=== PATIENT | male | born 1955 | race Caucasian/White ===

== ENCOUNTER → 2016-03-30 | Outpatient (CLI) | payer OTHER ==
[~2016-03-30] MED LIST: COLA100C PO; COLA50CA3 PO; CYCL10TA3 PO; GABA-279 PO; HYDR-3716 PO; HYDR10TA20 PO; HYDR7.5T30 PO; LIDO5DIS36 TD; LIDOCAINE TOP; MENSCAP PO; MORP10SU PO; PRIN10TA PO; VALI5TAB PO; [UNRECOGNIZED DRUG - OTHER] PO
--- NOTE | 2016-04-10 01:03 | ECWPNPC ---
PATIENT NAME: ISAIAH LAWTON : 1955 GENDER: MALE VISIT DATE: 03/30/2016 DISCHARGE DATE: 03/30/16 1215 VISIT LOCKED DATE TIME: PHYSICIAN: IMANI MAYO RESOURCE: IMANI MAYO REASON FOR APPOINTMENT 1. WC, BACK DISCUSS PT HISTORY OF PRESENT ILLNESS HISTORY OF PRESENT ILLNESS: PAIN THE PATIENT DESCRIBES THE PAIN... 61 YEAR OLD MALE PATIENT WITH CHRONIC HISTORY OF BACK PAIN. PATIENT DESCRIBES THE PAIN ACHING WITH A PAIN SCORE OF 7/10. PATIENT WAS INJURED IN A WORK RELATED INJURY. PATIENT WAS INJURED WHEN HE WAS PICKING UP A FERTILIZER MACHINE ON THE BACK OF A TRUCK AND HURT HIS BACK. DATE OF INJURY WAS AUGUST OF 1993. PATIENT STATES THAT HE RECEIVED AN INJECTION ON 11-29-2015, AND POST PROCEDURE HE HAD DIFFICULTY WITH PAIN DOWN HIS LEGS, PATIENT WAS TAKEN TO THE ER THAT DAY AND ADMITTED FOR 5 DAYS. PATIENT STATES THAT NARCO HELPS WITH THE PAIN AND INCREASES HIS MOBILITY AND FUNCTIONALITY. PATIENT REPORTS THAT SITTING, BENDING HIS BACK, AND WALKING FOR LONG PERIODS INCREASE HIS PAIN LEVELS. PATIENT DENIES UNEXPLAINABLE WEIGHT LOSS, FEVER, CHILLS, NEW CHANGES ON HIS URINARY OR BOWEL CONTROL. FALL RISK SCREENING: SCREENING :NO FALLS IN THE PAST YEAR CURRENT MEDICATIONS TAKING COLACE 100 MG CAPSULE 1 CAPSULE ORALLY BID TAKING NORCO 7.5-325 MG TABLET 1 TABLET ORALLY EVERY 6 HRS PRN PAIN MDD=4 NOT-TAKING AMOXICILLIN-POT CLAVULANATE 875 MG TABLET 1 TABLET ORALLY EVERY 12 HRS NOT-TAKING VALIUM 5 MG TABLET 1 ORALLY 1 TAB 1HR PRE PROC. MDD1, NOTES: 1338 TODAY TOOK OWN MEDICATION LIST REVIEWED AND RECONCILED WITH THE PATIENT PAST MEDICAL HISTORY LOW BACK PAIN KIDNEY STONES BLADDER CANCER LEFT LEG WEAKNESS AFTER PROCEDURE ALLERGIES MORPHINE SULFATE: HEADACHE: SIDE EFFECTS SURGICAL HISTORY LUMBAR SURGURY 2001 BLADDER SURGERY OR 09/2015 RIGHT SURGERY AFTER CHAINSAW INJURY 1965 OR 1966 FAMILY HISTORY NO FAMILY HISTORY DOCUMENTED. SOCIAL HISTORY GENERAL: TOBACCO USE ARE YOU A:NONSMOKER LEARNING BARRIERS / SPECIAL NEEDS ORIENTED TO PLAN OF CARE: PATIENT, PAIN MANAGEMENT PATIENT, ORIENTED TO PLAN OF CARE: PATIENT, PAIN MANAGEMENT PATIENT. NEW PATIENT PAIN DIARY TODAY'S VISITNOTES FROM 0-10, WHAT LEVEL IS YOUR PAIN TODAY?0 PAIN CLINIC PFS, CLERGY, PUBLIC HEALTH REFERRALS PFS REFERRAL NEEDED?NO CLERGY REFERRAL NEEDED?NO PUBLIC HEALTH REFERRAL NEEDED?NO WAS THE PROVIDER NOTIFIED OF ANY PERTINENT INFO?NO PFS REFERRAL NEEDED?NO CLERGY REFERRAL NEEDED?NO PUBLIC HEALTH REFERRAL NEEDED?NO WAS THE PROVIDER NOTIFIED OF ANY PERTINENT INFO?NO HOSPITALIZATION/MAJOR DIAGNOSTIC PROCEDURE SURGERIES LEFT LEG WEAKNESS AFTER PROCEDURE REVIEW OF SYSTEMS CONSTITUTIONAL: ANY CHANGE IN YOUR MEDICAL CONDITION? NO . CHILLS NO . FEVER NO . INFECTION: DO YOU HAVE NEW INFECTIONS? NO . DO YOU HAVE HISTORY OF MRSA? NO . MUSCULOSKELETAL: ANY NEW PATTERNS OF PAIN OR NUMBNESS? NO . GASTROENTEROLOGY: ANY NEW CHANGE IN BOWEL CONTROL? NO . GENITOURINARY: ANY NEW CHANGE IN BLADDER CONTROL? NO . IS THERE A CHANCE YOU COULD BE ? NO . HEMATOLOGY/LYMPH: DO YOU TAKE ANY BLOOD THINNERS? (FOR EXAMPLE- COUMADIN, PLAVIX, AGGRENOX, PLATEL, PRADAXA, OR XARELTO) NO . WHEN WAS YOUR LAST DOSE? DATE: TIME: . NEUROLOGY: HAVE YOU FALLEN IN THE PAST 6 MONTHS? NO . ANY NEW EXTREMITY NUMBNESS OR WEAKNESS? NO . CARDIOLOGY: DO YOU HAVE A PACEMAKER OR DEFIBRILLATOR? NO . RESPIRATORY: HAVE YOU BEEN SICK IN THE PAST WEEK? NO . FEVER NO . FLU LIKE SYMPTOMS? NO . COUGH NO . INTEGUMENTARY: DO YOU HAVE ANY RASHES OR OPEN SORES? NO . ALLERGIC/IMMUNO: ARE YOU ALLERGIC TO SHELLFISH OR IV DYE? NO . ANY NEW ALLERGIES? NO . PSYCHIATRIC: DO YOU HAVE THOUGHTS OF HURTING YOURSELF OR SOMEONE ELSE? NO . ARE YOU ABUSED, NEGLECTED, OR IN AN UNSAFE ENVIRONMENT? NO . ENDOCRINOLOGY: ARE YOU DIABETIC? NO . OTHER: DO YOU NEED ANY PRESCRIPTIONS? NO . IF YES, PLEASE LIST: ____ . ANY NEW PROBLEMS WITH YOUR MEDICATIONS? NO . WHEN DID YOU LAST EAT? ____ . WHEN DID YOU LAST DRINK? ____ . WHAT DID YOU LAST DRINK? ____ . NAME OF PERSON DRIVING YOU HOME? ____ . DO YOU HAVE ANY OTHER QUESTIONS OR CONCERNS NO . REVIEWED BY: PROVIDER: IMANI MAYO MD . VITAL SIGNS WT 205.8 LBS, HT 71", BMI 28.70 INDEX, BP 134/87 MM HG, HR 86 /MIN, RR 16 /MIN, TEMP 96.4 F, OXYGEN SAT % 98, NA INITIALS TL 1046, REVIEWED BY: GABE. EXAMINATION : PATIENT IS ALERT O X 3 AND COOPERATIVE. PATIENT AMBULATES WITH AN ANTALGIC GAIT. PATIENT'S LEFT LEG IS WEAKER AT EXTENSION AND FLEXION. SEVERE TENDERNESS IN THE LOW BACK PARASPINAL MUSCLES GROUP WITH BANDS OF TISSUE, RESTRICTION OF MOVEMENT, AND PRESENCES OF TRIGGER POINTS. PATIENT IS ABLE TO FLEX BACK AT 10 DEGREES AND EXTEND AT 5 DEGREES. HYPERPATHIA IN THE LOW LUMBAR AREA. 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 LAWTON'S PAIN MANAGEMENT CASE. WE DISCUSSED THE DCS TRIAL DUE TO PATIENT EXPERIENCING DIFFICULTIES WITH OTHER INTERVENTIONS. PATIENT IS AWARE THAT HE WILL NEED TO HAVE A PSYCHOLOGICAL EVALUATION DONE BEFORE THE TRIAL WILL BE PERFORMED. ONCE PSYCHOLOGICAL EVALUATION HAS BEEN COMPLETED A SCRIPT FOR A THORACIC MRI WILL BE ORDERED. PATIENT WILL BRING HOME WITH HIM TODAY DCS DVD INFO. DISCUSSED WITH THE PATIENT THAT AT THIS TIME HE IS NOT A CANDIDATE FOR ANY MORE INJECTION INTERVENTIONS DUE TO HIM BEING ADMITTED INTO THE HOSPITAL POST PROCEDURE. PATIENT BROUGHT IN HIS MEDICATION BOTTLES TODAY. I WROTE A PHYSICAL THERAPY SCRIPT FOR THE PATIENT TODAY, DUE TO HIM HAVING GOOD PAIN RELIEF WITH PHYSICAL THERAPY. PATIENT BROUGHT HIS MEDICATION BOTTLES IN TODAY. PATIENT WILL CONTINUE WITH THE SAME MEDICATION REGIMEN BEFORE, AND ALSO START ON THE FLECTOR PATCH. OPIOID RISK TOOL COMPLETED TODAY. UTOX ORDERED ON 02-22-2016, SHOWS CONSISTENT RESULTS. PATIENT WILL FOLLOW UP WITH ME IN 6 WEEKS. , INSTRUCTIONS WERE GIVEN, QUESTIONS WERE ANSWERED, PATIENT REPORTS UNDERSTANDING AND AGREES WITH THE PLAN. I, DAVID PALACIOS, DOCUMENTED THE ABOVE INFORMATION ACTING A SCRIBE FOR DR. MAYO. I HAVE REVIEWED THE ABOVE DOCUMENT, WRITTEN BY DAVID FLETCHER AND I VERIFY THAT IT IS ACCURATE. PROCEDURES PN WORKMANS' COMP OPINION IN YOUR OPINION, WAS THE INCIDENT THAT THE PATIENT DESCRIBED THE COMPETENT MEDICAL CAUSE OF THIS INJURY/ILLNESS? YES ARE THE PATIENT'S COMPLAINTS CONSISTENT WITH HIS/HER HISTORY OF THE INJURY/ILLNESS? YES IS THE PATIENT'S HISTORY OF THE INJURY/ILLNESS CONSISTENT WITH YOUR OBJECTIVE FINDING? YES WHAT IS THE PERCENTAGE OF TEMPORARY IMPAIRMENT? MODERATE TO MARKED = 66.7% IS THE PATIENT WORKING? NO DOCTOR ON SITE: IMANI NGUYEN MD PROCEDURE CODES FA211 ESTABILISHED PATIENT [facility] CHARGE G8730 PAIN ASSESS POS TOOL F/U PLAN DOC G8427 DOC MEDS VERIFIED W/PT OR RE FOLLOW UP 6 WEEKS ELECTRONICALLY SIGNED BY IMANI MAYO MD ON 04/09/2016 AT 09:44 AM EST DISCLAIMER : THIS IS A VISIT SUMMARY EXTRACTED FROM THE [employer] CHART. IT IS NOT A COPY OF THE [employer] PROGRESS NOTE. ANGELO
== END ==
LOC: M PAIN 11:00
PROVIDERS: ATTEND Anesthesiology
DX: Z09 Encounter for follow-up examination after completed treatment for conditions other than malignant neoplasm (principal); G89.21 Chronic pain due to trauma; M96.1 Postlaminectomy syndrome, not elsewhere classified; M47.817 Spondylosis without myelopathy or radiculopathy, lumbosacral region; M51.17 Intervertebral disc disorders with radiculopathy, lumbosacral region; M62.81 Muscle weakness (generalized); Z88.8 Allergy status to other drugs, medicaments and biological substances; Z79.891 Long term (current) use of opiate analgesic; Z79.899 Other long term (current) drug therapy; Z85.51 Personal history of malignant neoplasm of bladder

== ENCOUNTER → 2016-05-28 | Outpatient (CLI) | payer OTHER ==
--- NOTE | 2016-06-06 01:42 | ECWPNPC ---
PATIENT NAME: ISAIAH LAWTON : 1955 GENDER: MALE VISIT DATE: 05/28/2016 DISCHARGE DATE: 05/28/16 1144 VISIT LOCKED DATE TIME: PHYSICIAN: IMANI MAYO RESOURCE: IMANI MAYO REASON FOR APPOINTMENT 1. W/C BACK PAIN HISTORY OF PRESENT ILLNESS HISTORY OF PRESENT ILLNESS: PAIN THE PATIENT DESCRIBES THE PAIN... 61 YEAR OLD MALE PATIENT WITH CHRONIC HISTORY OF BACK PAIN. PATIENT DESCRIBES THE PAIN ACHING WITH A PAIN SCORE OF 7/10. PATIENT WAS INJURED IN A WORK RELATED INJURY. PATIENT WAS INJURED WHEN HE WAS PICKING UP A FERTILIZER MACHINE ON THE BACK OF A TRUCK AND HURT HIS BACK IN AUGUST OF 1993. MR. LAWTON HAS RECEIVED BACK SURGERY THAT DID AID IN SOME OF THE PAIN HE WAS EXPERIENCING BUT THE PATIENT HAS NEVER BEEN PAIN FREE. CURRENTLY THE PATIENT IS USING NORCO AND THE FLECTOR PATCH WHICH HE STATES AIDS IN PAIN RELIEF AND KEEPS HIM MOBILE AND FUNCTIONAL. PATIENT REPORTS THAT SITTING, BENDING HIS BACK, AND WALKING FOR LONG PERIODS INCREASE HIS PAIN LEVELS. PATIENT DENIES UNEXPLAINABLE WEIGHT LOSS, FEVER, CHILLS, NEW CHANGES ON HIS URINARY OR BOWEL CONTROL. FALL RISK SCREENING: SCREENING :NO FALLS IN THE PAST YEAR CURRENT MEDICATIONS TAKING COLACE 100 MG CAPSULE 1 CAPSULE ORALLY BID NEEDED FOR CONSTIPATION MDD2 TAKING NORCO 7.5-325 MG TABLET 1 TABLET ORALLY EVERY 6 HRS PRN PAIN MDD=4 NOT-TAKING FLECTOR 1.3 % PATCH 1 PATCH TO SKIN TRANSDERMAL TWICE A DAY NEEDED FOR PAIN NOT-TAKING AMOXICILLIN-POT CLAVULANATE 875 MG TABLET 1 TABLET ORALLY EVERY 12 HRS NOT-TAKING VALIUM 5 MG TABLET 1 ORALLY 1 TAB 1HR PRE PROC. MDD1, NOTES: 1338 TODAY TOOK OWN MEDICATION LIST REVIEWED AND RECONCILED WITH THE PATIENT PAST MEDICAL HISTORY LOW BACK PAIN KIDNEY STONES BLADDER CANCER LEFT LEG WEAKNESS AFTER PROCEDURE ALLERGIES MORPHINE SULFATE: HEADACHE: SIDE EFFECTS SURGICAL HISTORY LUMBAR SURGURY 2001 BLADDER SURGERY OR 09/2015 RIGHT SURGERY AFTER CHAINSAW INJURY 1965 OR 1966 FAMILY HISTORY NO FAMILY HISTORY DOCUMENTED. SOCIAL HISTORY GENERAL: TOBACCO USE ARE YOU A:NONSMOKER LEARNING BARRIERS / SPECIAL NEEDS ORIENTED TO PLAN OF CARE: PATIENT, PAIN MANAGEMENT PATIENT, ORIENTED TO PLAN OF CARE: PATIENT, PAIN MANAGEMENT PATIENT. NEW PATIENT PAIN DIARY TODAY'S VISITNOTES FROM 0-10, WHAT LEVEL IS YOUR PAIN TODAY?0 PAIN CLINIC PFS, CLERGY, PUBLIC HEALTH REFERRALS PFS REFERRAL NEEDED?NO CLERGY REFERRAL NEEDED?NO PUBLIC HEALTH REFERRAL NEEDED?NO WAS THE PROVIDER NOTIFIED OF ANY PERTINENT INFO?NO PFS REFERRAL NEEDED?NO CLERGY REFERRAL NEEDED?NO PUBLIC HEALTH REFERRAL NEEDED?NO WAS THE PROVIDER NOTIFIED OF ANY PERTINENT INFO?NO HOSPITALIZATION/MAJOR DIAGNOSTIC PROCEDURE SURGERIES LEFT LEG WEAKNESS AFTER PROCEDURE REVIEW OF SYSTEMS CONSTITUTIONAL: ANY CHANGE IN YOUR MEDICAL CONDITION? NO . CHILLS NO . FEVER NO . INFECTION: DO YOU HAVE NEW INFECTIONS? NO . DO YOU HAVE HISTORY OF MRSA? NO . MUSCULOSKELETAL: ANY NEW PATTERNS OF PAIN OR NUMBNESS? YES-- PAIN GOING ACROSS BACK RADIATING DOWN LEFT LEG. . GASTROENTEROLOGY: ANY NEW CHANGE IN BOWEL CONTROL? NO . GENITOURINARY: ANY NEW CHANGE IN BLADDER CONTROL? NO . IS THERE A CHANCE YOU COULD BE ? NO . HEMATOLOGY/LYMPH: DO YOU TAKE ANY BLOOD THINNERS? (FOR EXAMPLE- COUMADIN, PLAVIX, AGGRENOX, PLATEL, PRADAXA, OR XARELTO) NO . WHEN WAS YOUR LAST DOSE? DATE: TIME: . NEUROLOGY: HAVE YOU FALLEN IN THE PAST 6 MONTHS? NO . ANY NEW EXTREMITY NUMBNESS OR WEAKNESS? NO . CARDIOLOGY: DO YOU HAVE A PACEMAKER OR DEFIBRILLATOR? NO . RESPIRATORY: HAVE YOU BEEN SICK IN THE PAST WEEK? YES COLD SYMPTOMS THIS PAST WEEK . FEVER NO . FLU LIKE SYMPTOMS? NO . COUGH NO . INTEGUMENTARY: DO YOU HAVE ANY RASHES OR OPEN SORES? NO . ALLERGIC/IMMUNO: ARE YOU ALLERGIC TO SHELLFISH OR IV DYE? NO . ANY NEW ALLERGIES? NO . PSYCHIATRIC: DO YOU HAVE THOUGHTS OF HURTING YOURSELF OR SOMEONE ELSE? NO . ARE YOU ABUSED, NEGLECTED, OR IN AN UNSAFE ENVIRONMENT? NO . ENDOCRINOLOGY: ARE YOU DIABETIC? NO . OTHER: DO YOU NEED ANY PRESCRIPTIONS? ? NORCO. HE JUST HAD IT FILLED BUT NO REFILLS LEFT . IF YES, PLEASE LIST: ____ . ANY NEW PROBLEMS WITH YOUR MEDICATIONS? NO . WHEN DID YOU LAST EAT? ____ . WHEN DID YOU LAST DRINK? ____ . WHAT DID YOU LAST DRINK? ____ . NAME OF PERSON DRIVING YOU HOME? ____ . DO YOU HAVE ANY OTHER QUESTIONS OR CONCERNS ? OXYCODONE. JUST HAD IT FILLED BUT NO REFILLS LEFT . REVIEWED BY: PROVIDER: IMANI MAYO MD . VITAL SIGNS WT 210 LBS, HT 71", BMI 29.29 INDEX, BP 162/99 R ARM, REPEAT BP 157/93 L ARM, HR 75 /MIN, RR 16 /MIN, TEMP 96.4 F, OXYGEN SAT % 98, NA INITIALS TL 0954, REVIEWED BY: ADELEVATED BP, PT STATES HE QUIT TAKING HIS BP MEDICATION ON HIS OWN DISCRETION, TLADVISED TO CONTACT PCP REGARDING INCREASE IN B/P REGARDING RESTARTING MEDICATION AD. EXAMINATION : PATIENT IS ALERT O X 3 AND COOPERATIVE. PATIENT AMBULATES WITH AN ANTALGIC GAIT. PATIENT'S LEFT LEG IS WEAKER AT EXTENSION AND FLEXION. SEVERE TENDERNESS IN THE LOW BACK PARASPINAL MUSCLES GROUP WITH BANDS OF TISSUE, RESTRICTION OF MOVEMENT, AND PRESENCES OF TRIGGER POINTS. PATIENT IS ABLE TO FLEX BACK AT 10 DEGREES AND EXTEND AT 5 DEGREES. HYPERPATHIA IN THE LOW LUMBAR AREA. ASSESSMENTS POST LAMINECTOMY SYNDROME - M96.1 (PRIMARY) MYALGIA - M79.1 TREATMENT POST LAMINECTOMY SYNDROME REFILL NORCO TABLET, 7.5-325 MG, 1 TABLET, ORALLY, EVERY 6 HRS PRN PAIN MDD=4, 30 DAY(S), 120, REFILLS 0 REFILL COLACE CAPSULE, 100 MG, 1 CAPSULE, ORALLY, BID NEEDED FOR CONSTIPATION MDD2, 30 DAY(S), 60, REFILLS 2 NOTES: TRIGGER POINT INJECTION: YOUR EXPERIENCE MATERIAL WAS PRINTED. CLINICAL NOTES: WE DISCUSSED SEVERAL ISSUES WITH MR. LAWTON'S PAIN MANAGEMENT CASE. AT THIS TIME THE PATIENT WILL CONTINUE WITH THE SAME MEDICATION REGIME BEFORE. PATIENT DENIES ABUSE OF ANY MEDICATION, DENIES USE OF ILLEGAL SUBSTANCES, AND STATES THAT HE IS ONLY USING THE MEDICATION FOR PAIN MANAGEMENT. PATIENT IS AWARE TO USE HIS NARCOTICS IN A SAFE ENVIRONMENT AND TO AVOID BENZODIAZEPINES AND ALCOHOL WHILE USING THEM. I AM GOING TO REFER THE PATIENT TO THE NEUROLOGIST DUE TO THE PAIN DOWN THE LEGS. ALSO I WOULD LIKE THE PATIENT TO START PHYSICAL THERAPY DUE TO IT AIDING THE PATIENT IN THE PAST. DUE TO THE SPASTICITY IN THE LOWER BACK I WOULD LIKE TO REQUEST AUTHORIZATION FOR TRIGGER POINT INJECTIONS AND BOOK AFTER APPROVAL. WE DISCUSSED THE RISKS, BENEFITS, AND ALTNERATIVES TO THE INJECTION AND THE PATIENT WOULD LIKE TO PROCEED. WE DISCUSSED THE DCS WELL AND THE PATIENT WOULD LIKE TO SPEAK WITH KATHARINE OR EL FROM [employer] TO GET MORE INFORMATION ABOUT THE SYSTEM. INSTRUCTIONS WERE GIVEN, QUESTIONS WERE ANSWERED, PATIENT REPORTS UNDERSTANDING AND AGREES WITH THE PLAN. I, GABI ELLER, DOCUMENTED THE ABOVE INFORMATION ACTING A SCRIBE FOR DR. MAYO. I HAVE REVIEWED THE ABOVE DOCUMENT, WRITTEN BY GABI FLETCHER AND I VERIFY THAT IT IS ACCURATE. PROCEDURE CODES FA211 ESTABILISHED PATIENT [facility] FACILITY CHARGE G8427 DOC MEDS VERIFIED W/PT OR RE G8730 PAIN ASSESS POS TOOL F/U PLAN DOC DISPOSITION & COMMUNICATION ELECTRONICALLY SIGNED BY IMANI MAYO MD ON 06/03/2016 AT 11:37 AM EDT DISCLAIMER : THIS IS A VISIT SUMMARY EXTRACTED FROM THE [employer] CHART. IT IS NOT A COPY OF THE [employer] PROGRESS NOTE. ANGELO
== END ==
LOC: M PAIN 09:40
PROVIDERS: ATTEND Anesthesiology
DX: Z09 Encounter for follow-up examination after completed treatment for conditions other than malignant neoplasm (principal); G89.29 Other chronic pain; M96.1 Postlaminectomy syndrome, not elsewhere classified; M79.1 Myalgia; Z88.5 Allergy status to narcotic agent; R53.1 Weakness; Z79.891 Long term (current) use of opiate analgesic; Z79.899 Other long term (current) drug therapy; Z85.51 Personal history of malignant neoplasm of bladder

== ENCOUNTER → 2016-07-09 | Outpatient (CLI) | payer OTHER ==
[~2016-07-09] MED LIST changes: -COLA100C PO; +COLA100C3 PO
--- NOTE | 2016-07-16 00:32 | ECWPNPC ---
PATIENT NAME: ISAIAH LAWTON : 1955 GENDER: MALE VISIT DATE: 07/09/2016 DISCHARGE DATE: 07/09/16 1420 VISIT LOCKED DATE TIME: PHYSICIAN: IMANI MAYO RESOURCE: IMANI MAYO REASON FOR APPOINTMENT 1. DCS HISTORY OF PRESENT ILLNESS HISTORY OF PRESENT ILLNESS: PAIN THE PATIENT DESCRIBES THE PAIN... 61 YEAR OLD MALE PATIENT WITH CHRONIC HISTORY OF BACK PAIN. PATIENT DESCRIBES THE PAIN BURNING WITH A PAIN SCORE OF 6/10 ON TODAY'S VISIT. PATIENT WAS INJURED WHEN HE WAS PICKING UP A FERTILIZER MACHINE ON THE BACK OF A TRUCK AND HURT HIS BACK IN AUGUST OF 1993. MR. LAWTON HAS RECEIVED BACK SURGERY THAT DID AID IN SOME OF THE PAIN HE WAS EXPERIENCING BUT THE PATIENT HAS NEVER BEEN PAIN FREE. PATIENT REPORT SO RADIATING PAIN DOWN THE LEFT LEG FROM HIS BACK THAT GOES ALL THE WAY TO HIS LEFT FOOT. PATIENT EXPRESSES THAT AT THIS TIME HE WOULD LIKE TO HOLD OFF INJECTIONS. PATIENT DENIES UNEXPLAINABLE WEIGHT LOSS, FEVER, CHILLS, NEW CHANGES ON HIS URINARY OR BOWEL CONTROL. FALL RISK SCREENING: SCREENING :NO FALLS IN THE PAST YEAR CURRENT MEDICATIONS TAKING NORCO 7.5-325 MG TABLET 1 TABLET ORALLY EVERY 6 HRS PRN PAIN MDD=4 TAKING COLACE 100 MG CAPSULE 1 CAPSULE ORALLY BID NEEDED FOR CONSTIPATION MDD2 TAKING LISINOPRIL 10 MG TABLET 1 TABLET ORALLY ONCE A DAY NOT-TAKING FLECTOR 1.3 % PATCH 1 PATCH TO SKIN TRANSDERMAL TWICE A DAY NEEDED FOR PAIN NOT-TAKING AMOXICILLIN-POT CLAVULANATE 875 MG TABLET 1 TABLET ORALLY EVERY 12 HRS NOT-TAKING VALIUM 5 MG TABLET 1 ORALLY 1 TAB 1HR PRE PROC. MDD1, NOTES: 1338 TODAY TOOK OWN MEDICATION LIST REVIEWED AND RECONCILED WITH THE PATIENT PAST MEDICAL HISTORY LOW BACK PAIN KIDNEY STONES BLADDER CANCER LEFT LEG WEAKNESS AFTER PROCEDURE HTN ALLERGIES MORPHINE SULFATE: HEADACHE: SIDE EFFECTS SURGICAL HISTORY LUMBAR SURGURY 2001 BLADDER SURGERY OR 09/2015 RIGHT SURGERY AFTER CHAINSAW INJURY 1965 OR 1966 FAMILY HISTORY NO FAMILY HISTORY DOCUMENTED. SOCIAL HISTORY GENERAL: PAIN CLINIC PFS, CLERGY, PUBLIC HEALTH REFERRALS CLERGY REFERRAL NEEDED?NO WAS THE PROVIDER NOTIFIED OF ANY PERTINENT INFO?NO PFS REFERRAL NEEDED?NO PUBLIC HEALTH REFERRAL NEEDED?NO PATIENT: ____. HOSPITALIZATION/MAJOR DIAGNOSTIC PROCEDURE SURGERIES LEFT LEG WEAKNESS AFTER PROCEDURE REVIEW OF SYSTEMS CONSTITUTIONAL: ANY CHANGE IN YOUR MEDICAL CONDITION? YES, DX WITH MILD -- STARTED ON LISINOPRIL . CHILLS NO . FEVER NO . INFECTION: DO YOU HAVE NEW INFECTIONS? NO . DO YOU HAVE HISTORY OF MRSA? NO . MUSCULOSKELETAL: ANY NEW PATTERNS OF PAIN OR NUMBNESS? NO . GASTROENTEROLOGY: ANY NEW CHANGE IN BOWEL CONTROL? NO . GENITOURINARY: ANY NEW CHANGE IN BLADDER CONTROL? NO . IS THERE A CHANCE YOU COULD BE ? NO . HEMATOLOGY/LYMPH: DO YOU TAKE ANY BLOOD THINNERS? (FOR EXAMPLE- COUMADIN, PLAVIX, AGGRENOX, PLATEL, PRADAXA, OR XARELTO) NO . WHEN WAS YOUR LAST DOSE? DATE: TIME: . NEUROLOGY: HAVE YOU FALLEN IN THE PAST 6 MONTHS? NO . ANY NEW EXTREMITY NUMBNESS OR WEAKNESS? NO . CARDIOLOGY: DO YOU HAVE A PACEMAKER OR DEFIBRILLATOR? NO . RESPIRATORY: HAVE YOU BEEN SICK IN THE PAST WEEK? NO . FEVER NO . FLU LIKE SYMPTOMS? NO . COUGH YES, CLEAR SPUTUM . INTEGUMENTARY: DO YOU HAVE ANY RASHES OR OPEN SORES? NO . ALLERGIC/IMMUNO: ARE YOU ALLERGIC TO SHELLFISH OR IV DYE? NO . ANY NEW ALLERGIES? NO . PSYCHIATRIC: DO YOU HAVE THOUGHTS OF HURTING YOURSELF OR SOMEONE ELSE? NO . ARE YOU ABUSED, NEGLECTED, OR IN AN UNSAFE ENVIRONMENT? NO . ENDOCRINOLOGY: ARE YOU DIABETIC? NO . OTHER: DO YOU NEED ANY PRESCRIPTIONS? YES . IF YES, PLEASE LIST: NORCO . ANY NEW PROBLEMS WITH YOUR MEDICATIONS? NO . WHEN DID YOU LAST EAT? ____ . WHEN DID YOU LAST DRINK? ____ . WHAT DID YOU LAST DRINK? ____ . NAME OF PERSON DRIVING YOU HOME? ____ . DO YOU HAVE ANY OTHER QUESTIONS OR CONCERNS YES, HASN'T HEARD ANYTHING REGARDING PT RENEWAL&NBSP;. REVIEWED BY: PROVIDER: IMANI MAYO MD . VITAL SIGNS WT 210 LBS, HT 71", BMI 29.29 INDEX, BP 135/95 MM HG, HR 76 /MIN, RR 16 /MIN, TEMP 98.5 F, OXYGEN SAT % 97%, NA INITIALS SC 13:43, REVIEWED BY: AD. EXAMINATION : PATIENT IS ALERT O X 3 AND COOPERATIVE. PATIENT AMBULATES WITH AN ANTALGIC GAIT HOLDING A CANE ON THE LEFT HAND. THERE IS PAIN AND TENDERNESS IN THE LUMBAR PARASPINAL MUSCLE GROUP. PATIENT'S LEFT LEG IS WEAKER AT FLEXION AND EXTENSION. ASSESSMENTS POST LAMINECTOMY SYNDROME - M96.1 (PRIMARY) TREATMENT POST LAMINECTOMY SYNDROME REFILL NORCO TABLET, 7.5-325 MG, 1 TABLET, ORALLY (CODE D FOR CHRONIC PAIN), EVERY 4 HRS PRN PAIN MDD=6, 60 DAYS, 240, REFILLS 0 REFILL COLACE CAPSULE, 100 MG, 1 CAPSULE, ORALLY, BID NEEDED FOR CONSTIPATION MDD2, 30 DAY(S), 60, REFILLS 2 NOTES: WE DISCUSSED SEVERAL ISSUES WITH MR. LAWTON'S PAIN MANAGEMENT CASE. AT THIS TIME THE PATIENT WILL CONTINUE WITH THE SAME MEDICATION REGIME BEFORE. PATIENT DENIES ABUSE OF ANY MEDICATION, DENIES USE OF ILLEGAL SUBSTANCES, AND STATES THAT HE IS ONLY USING THE MEDICATION FOR PAIN MANAGEMENT. AT THIS TIME I WILL LIKE THE PATIENT TO START PHYSICAL THERAPY FOR 6 WEEKS 3 TIMES A WEEK. PATIENT REPORTS THAT THE REFERRAL TO A NEUROLOGIST HAS BEEN RECEIVED BY THE OFFICE AND EVERYTHING IS READY, BUT THE DRIVE IS VERY DIFFICULT IT INCREASES THE PATIENT'S PAIN. PATIENT REPORTS THAT HE WOULD LIKE TO TALK WITH A REP FOR THE DCS, AND GIVES US PERMISSION TO CONTACT THE REPRESENTATIVES TO CONTACT HIM. PATIENT STATES THAT HE IS OKAY WITH PROVIDING HIS INFORMATION LIKE PHONE NUMBER AND NAME TO THE REPRESENTATIVES. PATIENT TO FOLLOW UP WITH ME IN 6 WEEKS. INSTRUCTIONS WERE GIVEN, QUESTIONS WERE ANSWERED, PATIENT REPORTS UNDERSTANDING AND AGREES WITH THE PLAN. I, DAVID PALACIOS, DOCUMENTED THE ABOVE INFORMATION ACTING A SCRIBE FOR DR. MAYO. I HAVE REVIEWED THE ABOVE DOCUMENT, WRITTEN BY DAVID FLETCHER AND I VERIFY THAT IT IS ACCURATE. PROCEDURE CODES FA211 ESTABILISHED PATIENT [facility] FACILITY CHARGE G8730 PAIN ASSESS POS TOOL F/U PLAN DOC G8427 DOC MEDS VERIFIED W/PT OR RE DISPOSITION & COMMUNICATION FOLLOW UP 6 WEEKS ELECTRONICALLY SIGNED BY IMANI MAYO MD ON 07/15/2016 AT 06:07 PM EDT DISCLAIMER : THIS IS A VISIT SUMMARY EXTRACTED FROM THE [employer] CHART. IT IS NOT A COPY OF THE [employer] PROGRESS NOTE. [facility]
== END ==
LOC: M PAIN 13:20
PROVIDERS: ATTEND Anesthesiology
DX: M96.1 Postlaminectomy syndrome, not elsewhere classified (principal); I10 Essential (primary) hypertension; Z88.5 Allergy status to narcotic agent; Z79.891 Long term (current) use of opiate analgesic; Z79.899 Other long term (current) drug therapy

== ENCOUNTER → 2016-09-11 | Outpatient (CLI) | payer OTHER ==
[~2016-09-11] MED LIST changes: -COLA100C3 PO; +COLA100C5 PO; -LIDO5DIS36 TD; +LIDO5DIS41 TD
--- NOTE | 2016-09-25 23:37 | ECWPNPC ---
PATIENT NAME: ISAIAH LAWTON : 1955 GENDER: MALE VISIT DATE: 09/11/2016 DISCHARGE DATE: 09/11/16 1633 VISIT LOCKED DATE TIME: PHYSICIAN: IMANI MAYO RESOURCE: IMANI MAYO REASON FOR APPOINTMENT 1. WC, BACK HISTORY OF PRESENT ILLNESS HISTORY OF PRESENT ILLNESS: PAIN THE PATIENT DESCRIBES THE PAIN... 61 YEAR OLD MALE PATIENT WITH CHRONIC HISTORY OF BACK PAIN. PATIENT DESCRIBES THE PAIN BURNING WITH A PAIN SCORE OF 7/10 ON TODAY'S VISIT. PATIENT WAS INJURED WHEN HE WAS PICKING UP A FERTILIZER MACHINE ON THE BACK OF A TRUCK AND HURT HIS BACK IN AUGUST OF 1993. MR. LAWTON HAS RECEIVED BACK SURGERY THAT DID AID IN SOME OF THE PAIN HE WAS EXPERIENCING BUT THE PATIENT HAS NEVER BEEN PAIN FREE. PATIENT REPORT SO RADIATING PAIN DOWN THE LEFT LEG FROM HIS BACK THAT GOES ALL THE WAY TO HIS LEFT FOOT. PATIENT DENIES UNEXPLAINABLE WEIGHT LOSS, FEVER, CHILLS, NEW CHANGES ON HIS URINARY OR BOWEL CONTROL. FALL RISK SCREENING: SCREENING :NO FALLS IN THE PAST YEAR CURRENT MEDICATIONS TAKING NORCO 7.5-325 MG TABLET 1 TABLET ORALLY (CODE D FOR CHRONIC PAIN) EVERY 4 HRS PRN PAIN MDD=6 TAKING COLACE 100 MG CAPSULE 1 CAPSULE ORALLY BID NEEDED FOR CONSTIPATION MDD2 TAKING LISINOPRIL 10 MG TABLET 1 TABLET ORALLY ONCE A DAY TAKING OMEPRAZOLE 20 MG CAPSULE DELAYED RELEASE 1 CAPSULE ORALLY ONCE A DAY NOT-TAKING FLECTOR 1.3 % PATCH 1 PATCH TO SKIN TRANSDERMAL TWICE A DAY NEEDED FOR PAIN NOT-TAKING AMOXICILLIN-POT CLAVULANATE 875 MG TABLET 1 TABLET ORALLY EVERY 12 HRS NOT-TAKING VALIUM 5 MG TABLET 1 ORALLY 1 TAB 1HR PRE PROC. MDD1, NOTES: 1338 TODAY TOOK OWN MEDICATION LIST REVIEWED AND RECONCILED WITH THE PATIENT PAST MEDICAL HISTORY LOW BACK PAIN KIDNEY STONES BLADDER CANCER LEFT LEG WEAKNESS AFTER PROCEDURE HTN ALLERGIES MORPHINE SULFATE: HEADACHE: SIDE EFFECTS REVIEW OF SYSTEMS REVIEWED BY: PROVIDER: . CONSTITUTIONAL: ANY CHANGE IN YOUR MEDICAL CONDITION? NO . CHILLS NO . FEVER NO . INFECTION: DO YOU HAVE NEW INFECTIONS? NO . DO YOU HAVE HISTORY OF MRSA? NO . MUSCULOSKELETAL: ANY NEW PATTERNS OF PAIN OR NUMBNESS? NO . GASTROENTEROLOGY: ANY NEW CHANGE IN BOWEL CONTROL? NO . GENITOURINARY: ANY NEW CHANGE IN BLADDER CONTROL? NO . IS THERE A CHANCE YOU COULD BE ? NO . HEMATOLOGY/LYMPH: DO YOU TAKE ANY BLOOD THINNERS? (FOR EXAMPLE- COUMADIN, PLAVIX, AGGRENOX, PLATEL, PRADAXA, OR XARELTO) NO . WHEN WAS YOUR LAST DOSE? DATE: TIME: . NEUROLOGY: HAVE YOU FALLEN IN THE PAST 6 MONTHS? NO . ANY NEW EXTREMITY NUMBNESS OR WEAKNESS? NO . CARDIOLOGY: DO YOU HAVE A PACEMAKER OR DEFIBRILLATOR? NO . RESPIRATORY: HAVE YOU BEEN SICK IN THE PAST WEEK? NO . FEVER NO . FLU LIKE SYMPTOMS? NO . COUGH NO . INTEGUMENTARY: DO YOU HAVE ANY RASHES OR OPEN SORES? NO . ALLERGIC/IMMUNO: ARE YOU ALLERGIC TO SHELLFISH OR IV DYE? NO . ANY NEW ALLERGIES? NO . PSYCHIATRIC: DO YOU HAVE THOUGHTS OF HURTING YOURSELF OR SOMEONE ELSE? NO . ARE YOU ABUSED, NEGLECTED, OR IN AN UNSAFE ENVIRONMENT? NO . ENDOCRINOLOGY: ARE YOU DIABETIC? NO . OTHER: DO YOU NEED ANY PRESCRIPTIONS? YES . IF YES, PLEASE LIST: HYDROCODONE 7.5/325MG, COLACE . ANY NEW PROBLEMS WITH YOUR MEDICATIONS? NO . WHEN DID YOU LAST EAT? ____ . WHEN DID YOU LAST DRINK? ____ . WHAT DID YOU LAST DRINK? ____ . NAME OF PERSON DRIVING YOU HOME? ____ . DO YOU HAVE ANY OTHER QUESTIONS OR CONCERNS YES, HAVING ENDOSCOPY AND COLONOSCOPY ON 09/17. . VITAL SIGNS WT 214.0 LBS, HT 71", BMI 29.84 INDEX, BP 141/96 L ARM, REPEAT BP 134/93 R ARM, HR 85 /MIN, RR 16 /MIN, TEMP 98.5 F, OXYGEN SAT % 98%, NA INITIALS TL 1452, REVIEWED BY: ANAND. EXAMINATION : PATIENT IS ALERT O X 3 AND COOPERATIVE. PATIENT AMBULATES WITH AN ANTALGIC GAIT HOLDING A CANE ON THE LEFT HAND. THERE IS PAIN AND TENDERNESS IN THE LUMBAR PARASPINAL MUSCLE GROUP. PATIENT'S LEFT LEG IS WEAKER AT FLEXION AND EXTENSION. MRI DONE ON 11/29/15 OF THE LUMBAR SPINE SHOWS MULTIPLE DISC BULGES, SPINAL STENOSIS AT L3-L4, FACET HYPERTROPHY, AND S/P SPINAL FUSION. 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 LAWTON'S PAIN MANAGEMENT CASE. AT THIS TIME THE PATIENT WILL CONTINUE WITH THE SAME MEDICATION REGIME BEFORE. PATIENT IS USING THE NORCO FOR THE SOMATIC PAIN AND COLACE FOR THE OPIOID INDUCED CONSTIPATION. PATIENT DENIES ABUSE OF ANY MEDICATION, DENIES USE OF ILLEGAL SUBSTANCES AND STATES HE IS ONLY USING THE MEDICATION FOR PAIN MANAGEMENT. URINE TOXICOLOGY DONE ON 02/22/2016 SHOWS CONSISTENT RESULTS WITH THE PATIENT'S MEDICATION LIST. PATIENT WILL PERFORM URINE TOXICOLOGY TODAY. WE DISCUSSED THE DCS AND OTHER OPTIONS. PATIENT HAS KATHARINE ALCALA AND CARLOS CARRASQUILLO CONTACT INFORMATION TO SPEAK WITH BOTH REPS ABOUT THEIR PRODUCTS. I WOULD ALSO LIKE THE PATIENT TO CONTINUE PHYSICAL THERAPY. PATIENT WILL RETURN TO THE CLINIC IN 4 WEEKS. INSTRUCTIONS WERE GIVEN, QUESTIONS WERE ANSWERED, PATIENT REPORTS UNDERSTANDING AND AGREES WITH THE PLAN. I, GABI ELLER, DOCUMENTED THE ABOVE INFORMATION ACTING A SCRIBE FOR DR. MAYO. I HAVE REVIEWED THE ABOVE DOCUMENT, WRITTEN BY GABI FLETCHER AND I VERIFY THAT IT IS ACCURATE. PROCEDURES PN WORKMANS' COMP OPINION IN YOUR OPINION, WAS THE INCIDENT THAT THE PATIENT DESCRIBED THE COMPETENT MEDICAL CAUSE OF THIS INJURY/ILLNESS? YES ARE THE PATIENT'S COMPLAINTS CONSISTENT WITH HIS/HER HISTORY OF THE INJURY/ILLNESS? YES IS THE PATIENT'S HISTORY OF THE INJURY/ILLNESS CONSISTENT WITH YOUR OBJECTIVE FINDING? YES WHAT IS THE PERCENTAGE OF TEMPORARY IMPAIRMENT? MODERATE TO MARKED = 66.7% IS THE PATIENT WORKING? NO DOCTOR ON SITE: IMANI NGUYEN MD PROCEDURE CODES FA211 ESTABILISHED PATIENT [facility] FACILITY CHARGE G8427 DOC MEDS VERIFIED W/PT OR RE W3297 PAIN ASSESS POS TOOL F/U PLAN DOC DISPOSITION & COMMUNICATION FOLLOW UP 4 WEEKS ELECTRONICALLY SIGNED BY IMANI MAYO MD ON 09/25/2016 AT 09:44 PM EDT DISCLAIMER : THIS IS A VISIT SUMMARY EXTRACTED FROM THE [employer] CHART. IT IS NOT A COPY OF THE [employer] PROGRESS NOTE. ANGELO
== END ==
LOC: M PAIN 15:00
PROVIDERS: ATTEND Anesthesiology
DX: G89.29 Other chronic pain (principal); M96.1 Postlaminectomy syndrome, not elsewhere classified; M51.16 Intervertebral disc disorders with radiculopathy, lumbar region; M47.816 Spondylosis without myelopathy or radiculopathy, lumbar region; M47.817 Spondylosis without myelopathy or radiculopathy, lumbosacral region; I10 Essential (primary) hypertension; Z88.5 Allergy status to narcotic agent; Z79.891 Long term (current) use of opiate analgesic; Z79.899 Other long term (current) drug therapy; Z85.51 Personal history of malignant neoplasm of bladder; Z85.528 Personal history of other malignant neoplasm of kidney

== ENCOUNTER → 2016-10-26 | Outpatient (CLI) | payer OTHER ==
--- NOTE | 2016-11-13 01:47 | ECWPNPC ---
PATIENT NAME: ISAIAH LAWTON : 1955 GENDER: MALE VISIT DATE: 10/26/2016 DISCHARGE DATE: 10/26/16 1506 VISIT LOCKED DATE TIME: PHYSICIAN: IMANI MAYO RESOURCE: IMANI MAYO REASON FOR APPOINTMENT 1. LOW BACK PAIN HISTORY OF PRESENT ILLNESS HISTORY OF PRESENT ILLNESS: PAIN THE PATIENT DESCRIBES THE PAIN... 61 YEAR OLD MALE PATIENT WITH CHRONIC HISTORY OF BACK PAIN. PATIENT DESCRIBES THE PAIN BURNING WITH A PAIN SCORE OF 7/10 ON TODAY'S VISIT. PATIENT WAS INJURED WHEN HE WAS PICKING UP A FERTILIZER MACHINE ON THE BACK OF A TRUCK AND HURT HIS BACK IN AUGUST OF 1993 WHILE WORKING FOR [employer]. MR. LAWTON HAS RECEIVED BACK SURGERY THAT DID AID IN SOME OF THE PAIN HE WAS EXPERIENCING BUT THE PATIENT HAS NEVER BEEN PAIN FREE. PATIENT REPORT SO RADIATING PAIN DOWN THE LEFT LEG FROM HIS BACK THAT GOES ALL THE WAY TO HIS LEFT FOOT. AT THIS TIME THE PATIENT STATES HE DOES NOT WANT TO MOVE FORWARD WITH THE DCS. PATIENT DENIES UNEXPLAINABLE WEIGHT LOSS, FEVER, CHILLS, NEW CHANGES ON HIS URINARY OR BOWEL CONTROL. FALL RISK SCREENING: SCREENING :NO FALLS IN THE PAST YEAR CURRENT MEDICATIONS TAKING LISINOPRIL 10 MG TABLET 1 TABLET ORALLY ONCE A DAY TAKING OMEPRAZOLE 20 MG CAPSULE DELAYED RELEASE 1 CAPSULE ORALLY ONCE A DAY TAKING NORCO 7.5-325 MG TABLET 1 TABLET ORALLY (CODE D FOR CHRONIC PAIN) EVERY 4 HRS PRN PAIN MDD=6 TAKING COLACE 100 MG CAPSULE 1 CAPSULE ORALLY BID NEEDED FOR CONSTIPATION MDD2 NOT-TAKING FLECTOR 1.3 % PATCH 1 PATCH TO SKIN TRANSDERMAL TWICE A DAY NEEDED FOR PAIN NOT-TAKING AMOXICILLIN-POT CLAVULANATE 875 MG TABLET 1 TABLET ORALLY EVERY 12 HRS NOT-TAKING VALIUM 5 MG TABLET 1 ORALLY 1 TAB 1HR PRE PROC. MDD1, NOTES: 1338 TODAY TOOK OWN MEDICATION LIST REVIEWED AND RECONCILED WITH THE PATIENT PAST MEDICAL HISTORY LOW BACK PAIN KIDNEY STONES BLADDER CANCER LEFT LEG WEAKNESS AFTER PROCEDURE HTN ALLERGIES MORPHINE SULFATE: HEADACHE: SIDE EFFECTS REVIEW OF SYSTEMS REVIEWED BY: PROVIDER: IMANI MAYO MD . CONSTITUTIONAL: ANY CHANGE IN YOUR MEDICAL CONDITION? NO . CHILLS NO . FEVER NO . INFECTION: DO YOU HAVE NEW INFECTIONS? NO . DO YOU HAVE HISTORY OF MRSA? NO . MUSCULOSKELETAL: ANY NEW PATTERNS OF PAIN OR NUMBNESS? NO . GASTROENTEROLOGY: ANY NEW CHANGE IN BOWEL CONTROL? NO . GENITOURINARY: ANY NEW CHANGE IN BLADDER CONTROL? NO . IS THERE A CHANCE YOU COULD BE ? NO . HEMATOLOGY/LYMPH: DO YOU TAKE ANY BLOOD THINNERS? (FOR EXAMPLE- COUMADIN, PLAVIX, AGGRENOX, PLATEL, PRADAXA, OR XARELTO) NO . WHEN WAS YOUR LAST DOSE? DATE: TIME: . NEUROLOGY: HAVE YOU FALLEN IN THE PAST 6 MONTHS? NO . ANY NEW EXTREMITY NUMBNESS OR WEAKNESS? NO . CARDIOLOGY: DO YOU HAVE A PACEMAKER OR DEFIBRILLATOR? NO . RESPIRATORY: HAVE YOU BEEN SICK IN THE PAST WEEK? NO . FEVER NO . FLU LIKE SYMPTOMS? NO . COUGH NO . INTEGUMENTARY: DO YOU HAVE ANY RASHES OR OPEN SORES? NO . ALLERGIC/IMMUNO: ARE YOU ALLERGIC TO SHELLFISH OR IV DYE? NO . ANY NEW ALLERGIES? NO . PSYCHIATRIC: DO YOU HAVE THOUGHTS OF HURTING YOURSELF OR SOMEONE ELSE? NO . ARE YOU ABUSED, NEGLECTED, OR IN AN UNSAFE ENVIRONMENT? NO . ENDOCRINOLOGY: ARE YOU DIABETIC? NO . OTHER: DO YOU NEED ANY PRESCRIPTIONS? YES . IF YES, PLEASE LIST: ____HYDROCODONE . ANY NEW PROBLEMS WITH YOUR MEDICATIONS? NO . WHEN DID YOU LAST EAT? ____ . WHEN DID YOU LAST DRINK? ____ . WHAT DID YOU LAST DRINK? ____ . NAME OF PERSON DRIVING YOU HOME? ____ . DO YOU HAVE ANY OTHER QUESTIONS OR CONCERNS NO . VITAL SIGNS WT 213.8 LBS, HT 71", BMI 29.82 INDEX, BP 140/94 MM HG, HR 83 /MIN, RR 18 /MIN, TEMP 98.5 F, OXYGEN SAT % 97%, NA INITIALS SC 14:02, REVIEWED BY: VD. EXAMINATION : PATIENT IS ALERT O X 3 AND COOPERATIVE. PATIENT AMBULATES WITH AN ANTALGIC GAIT HOLDING A CANE ON THE LEFT HAND. THERE IS PAIN AND TENDERNESS IN THE LUMBAR PARASPINAL MUSCLE GROUP. PATIENT'S LEFT LEG IS WEAKER THEN THE RIGHT AT FLEXION AND EXTENSION. MRI DONE ON 11/29/15 OF THE LUMBAR SPINE SHOWS MULTIPLE DISC BULGES, SPINAL STENOSIS AT L3-L4, FACET HYPERTROPHY, AND S/P SPINAL FUSION. 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 LAWTON'S PAIN MANAGEMENT CASE. AT THIS TIME THE PATIENT WILL CONTINUE WITH THE SAME MEDICATION REGIME BEFORE. PATIENT IS USING THE NORCO FOR THE SOMATIC PAIN AND COLACE FOR THE OPIOID INDUCED CONSTIPATION. PATIENT DENIES ABUSE OF ANY MEDICATION, DENIES USE OF ILLEGAL SUBSTANCES AND STATES HE IS ONLY USING THE MEDICATION FOR PAIN MANAGEMENT. URINE TOXICOLOGY DONE ON 09/11/16 SHOWS CONSISTENT RESULTS WITH THE PATIENT'S MEDICATION LIST. I WOULD LIKE THE PATIENT TO CONTINUE WITH PHYSICAL THERAPY IT AIDED THE PATIENT IN PAIN RELIEF AND KEPT HIM MORE MOBILE AND FUNCTIONAL. DUE TO THE ARTHRITIS I WOULD LIKE TO PROCEED WITH A DIAGNOSTIC LEFT L4-L5 AND LEFT L5-S1 TO CONSIDER A RADIOFREQUENCY. THE PATIENT IS AWARE HE WILL NEED TO HAVE 2 DIAGNOSTIC TESTS WITH ADEQUATE RESULTS TO PROCEED WITH A RADIOFREQUENCY. WE DISCUSSED THE RISKS, BENENFITS, AND ALTNERATIVES OF THE INJECTION AND THE PATIENT WOULD LIKE TO PROCEED AT THIS TIME. INSTRUCTIONS WERE GIVEN, QUESTIONS WERE ANSWERED, PATIENT REPORTS UNDERSTANDING AND AGREES WITH THE PLAN. I, GABI ELLER, DOCUMENTED THE ABOVE INFORMATION ACTING A SCRIBE FOR DR. MAYO. I HAVE REVIEWED THE ABOVE DOCUMENT, WRITTEN BY GABI FLETCHER AND I VERIFY THAT IT IS ACCURATE. PROCEDURES PN WORKMANS' COMP OPINION IN YOUR OPINION, WAS THE INCIDENT THAT THE PATIENT DESCRIBED THE COMPETENT MEDICAL CAUSE OF THIS INJURY/ILLNESS? YES ARE THE PATIENT'S COMPLAINTS CONSISTENT WITH HIS/HER HISTORY OF THE INJURY/ILLNESS? YES IS THE PATIENT'S HISTORY OF THE INJURY/ILLNESS CONSISTENT WITH YOUR OBJECTIVE FINDING? YES WHAT IS THE PERCENTAGE OF TEMPORARY IMPAIRMENT? MODERATE TO MARKED = 66.7% IS THE PATIENT WORKING? NO DOCTOR ON SITE: IMANI NGUYEN MD PREVENTIVE MEDICINE REVIEWED PRE PROCEDURE CARE WITH PT UNDERSTANDING EXPRESSEDPT HAS BEEN TOLD HE NEEDS AUTHORIZATION FOR THIS AND THAT WE WILL CALL WITH APPOINTMENT. PROCEDURE CODES FA211 ESTABILISHED PATIENT [facility] FACILITY CHARGE G8427 DOC MEDS VERIFIED W/PT OR RE G0630 PAIN ASSESS POS TOOL F/U PLAN DOC DISPOSITION & COMMUNICATION FOLLOW UP LFBD #1 ELECTRONICALLY SIGNED BY IMANI MAYO MD ON 11/12/2016 AT 12:29 PM EDT DISCLAIMER : THIS IS A VISIT SUMMARY EXTRACTED FROM THE [employer] CHART. IT IS NOT A COPY OF THE [employer] PROGRESS NOTE. ANGELO
== END ==
LOC: M PAIN 14:00
PROVIDERS: ATTEND Anesthesiology
DX: M96.1 Postlaminectomy syndrome, not elsewhere classified (principal); M47.816 Spondylosis without myelopathy or radiculopathy, lumbar region; M47.817 Spondylosis without myelopathy or radiculopathy, lumbosacral region; I10 Essential (primary) hypertension; Z88.5 Allergy status to narcotic agent; Z79.891 Long term (current) use of opiate analgesic; Z79.899 Other long term (current) drug therapy

== ENCOUNTER → 2017-01-07 | Outpatient (CLI) | payer OTHER ==
[~2017-01-07] MED LIST changes: +BUPIVACAINE HCL 0.25% 30 ML VIAL As Ordered ONE; +LIDOCAINE 1% SDV INJ 30 ML VIAL As Ordered ONE
--- NOTE | 2017-01-07 15:40 | REP ---
FACET BLOCK: The images were reviewed with Dr. Gusman. The patient has a history of low back pain. The portable C-Arm was provided in the OR for Dr. Aaron for fluoroscopic guidance. One intraoperative last image hold fluoro spot film was obtained for needle placement verification for left lumbar facet injection. Reviewed by LEVAR Schmid 01/07/2017 05:00 PEdited and Signed by Henrique Gusman MD 01/08/2017 07:30 P
--- NOTE | 2017-01-13 23:57 | ECWPNPC ---
PATIENT NAME: ISAIAH LAWTON : 1955 GENDER: MALE VISIT DATE: 01/07/2017 DISCHARGE DATE: 01/07/17 1203 VISIT LOCKED DATE TIME: PHYSICIAN: IMANI MAYO RESOURCE: IMANI MAYO REASON FOR APPOINTMENT 1. LT LFBD L4-L5 AND L5-S1 #1 HISTORY OF PRESENT ILLNESS HISTORY OF PRESENT ILLNESS: PAIN THE PATIENT DESCRIBES THE PAIN... FALL RISK SCREENING: SCREENING :NO FALLS IN THE PAST YEAR CURRENT MEDICATIONS TAKING OMEPRAZOLE 20 MG CAPSULE DELAYED RELEASE 1 CAPSULE ORALLY ONCE A DAY, NOTES: 01/07/17 0800 TAKING COLACE 100 MG CAPSULE 1 CAPSULE ORALLY BID NEEDED FOR CONSTIPATION MDD2, NOTES: 01/06/17 TAKING NORCO 7.5-325 MG TABLET 1 TABLET ORALLY (CODE D FOR CHRONIC PAIN) EVERY 4 HRS PRN PAIN MDD=6, NOTES: 01/06/17 2000 TAKING DICYCLOMINE HCL 10 MG CAPSULE 2 CAPSULES ORALLY FOUR TIMES A DAY, NOTES: 01/07/17 0800 TAKING LOSARTAN POTASSIUM 50 MG TABLET 1 TABLET ORALLY ONCE A DAY, NOTES: 01/07/17 0800 TAKING LEVOCETIRIZINE DIHYDROCHLORIDE 5 MG TABLET 1 TABLET IN THE EVENING ORALLY ONCE A DAY, NOTES: 01/07/17 0800 NOT-TAKING LISINOPRIL 10 MG TABLET 1 TABLET ORALLY ONCE A DAY NOT-TAKING FLECTOR 1.3 % PATCH 1 PATCH TO SKIN TRANSDERMAL TWICE A DAY NEEDED FOR PAIN NOT-TAKING AMOXICILLIN-POT CLAVULANATE 875 MG TABLET 1 TABLET ORALLY EVERY 12 HRS NOT-TAKING VALIUM 5 MG TABLET 1 ORALLY 1 TAB 1HR PRE PROC. MDD1, NOTES: 1338 TODAY TOOK OWN MEDICATION LIST REVIEWED AND RECONCILED WITH THE PATIENT PAST MEDICAL HISTORY LOW BACK PAIN KIDNEY STONES BLADDER CANCER LEFT LEG WEAKNESS AFTER PROCEDURE HTN ALLERGIES MORPHINE SULFATE: HEADACHE: SIDE EFFECTS REVIEW OF SYSTEMS REVIEWED BY: PROVIDER: . CONSTITUTIONAL: ANY CHANGE IN YOUR MEDICAL CONDITION? NO . CHILLS NO . FEVER NO . INFECTION: DO YOU HAVE NEW INFECTIONS? NO . DO YOU HAVE HISTORY OF MRSA? NO . MUSCULOSKELETAL: ANY NEW PATTERNS OF PAIN OR NUMBNESS? NO . GASTROENTEROLOGY: ANY NEW CHANGE IN BOWEL CONTROL? NO . GENITOURINARY: ANY NEW CHANGE IN BLADDER CONTROL? NO . IS THERE A CHANCE YOU COULD BE ? NO . HEMATOLOGY/LYMPH: DO YOU TAKE ANY BLOOD THINNERS? (FOR EXAMPLE- COUMADIN, PLAVIX, AGGRENOX, PLATEL, PRADAXA, OR XARELTO) NO . WHEN WAS YOUR LAST DOSE? DATE: TIME: . NEUROLOGY: HAVE YOU FALLEN IN THE PAST 6 MONTHS? NO . ANY NEW EXTREMITY NUMBNESS OR WEAKNESS? NO . CARDIOLOGY: DO YOU HAVE A PACEMAKER OR DEFIBRILLATOR? NO . RESPIRATORY: HAVE YOU BEEN SICK IN THE PAST WEEK? NO . FEVER NO . FLU LIKE SYMPTOMS? NO . COUGH NO . INTEGUMENTARY: DO YOU HAVE ANY RASHES OR OPEN SORES? NO . ALLERGIC/IMMUNO: ARE YOU ALLERGIC TO SHELLFISH OR IV DYE? NO . ANY NEW ALLERGIES? NO . PSYCHIATRIC: DO YOU HAVE THOUGHTS OF HURTING YOURSELF OR SOMEONE ELSE? NO . ARE YOU ABUSED, NEGLECTED, OR IN AN UNSAFE ENVIRONMENT? NO . ENDOCRINOLOGY: ARE YOU DIABETIC? NO . OTHER: DO YOU NEED ANY PRESCRIPTIONS? NO . IF YES, PLEASE LIST: ____ . ANY NEW PROBLEMS WITH YOUR MEDICATIONS? NO . WHEN DID YOU LAST EAT? 01/07/17 0700 TOAST/COFFEE, JUICE . WHEN DID YOU LAST DRINK? ____01/07/17 0700 . WHAT DID YOU LAST DRINK? ____ORANGE JUICE . NAME OF PERSON DRIVING YOU HOME? ____SON MARA . DO YOU HAVE ANY OTHER QUESTIONS OR CONCERNS NO . VITAL SIGNS WT 222.2 LBS, HT 71", BMI 30.99 INDEX, BP 145/86 MM HG, HR 90 /MIN, RR 18 /MIN, TEMP 98.8 F, OXYGEN SAT % 97%, SAFE IN ENV? (Y/N) YES, NA INITIALS WY 10:06, REVIEWED BY: ELSA. ASSESSMENTS SPONDYLOSIS OF LUMBAR REGION WITHOUT MYELOPATHY OR RADICULOPATHY - M47.816 (PRIMARY) TREATMENT SPONDYLOSIS OF LUMBAR REGION WITHOUT MYELOPATHY OR RADICULOPATHY REFILL NORCO TABLET, 7.5-325 MG, 1 TABLET, ORALLY FOR PAIN, EVERY 4 HRS PRN PAIN MDD=6, 30 DAY(S), 120, REFILLS 0, NOTES: 01/06/171999 OTHERS CLINICAL NOTES: I STOP REVIEWED. NUMBER [id number]. PROCEDURES PN LUMBAR FACET BLOCK DIAGNOSTIC PRE PROCEDURE DIAGNOSIS LUMBAR SPONDYLOSIS POST PROCEDURE DIAGNOSIS LUMBAR SPONDYLOSIS PROCEDURE LEFT L4-L5 FACET BLOCK DIAGNOSTIC NUMBER [address] IMANI MAYO WATER PUMPER NONE ANESTHESIA LOCAL PRE PROCEDURE NOTE THE PATIENT WITH HISTORY OF CHRONIC LOW BACK PAIN. I EVALUATED THE PATIENT AND REVIEWED THE CHART. I WENT OVER THE RISKS, ALTERNATIVES, AND BENEFITS ASSOCIATED WITH THIS PROCEDURE. THE PATIENT WOULD LIKE TO PROCEED AND GAVE CONSENT TO PERFORM THE PROCEDURE. AGREED WITH THE PATIENT WE ARE DOING THIS PROCEDURE TO DETERMINE IF THE PATIENT IS A CANDIDATE FOR A RADIOFREQUENCY ABLATION OF THE FACETS JOINTS. THE PATIENT DENIES UNEXPLAINABLE WEIGHT LOSS, FEVER, CHILLS, OR NEW CHANGES IN URINARY OR BOWEL CONTROL DESCRIPTION OF PROCEDURE THE PATIENT WAS BROUGHT TO THE PROCEDURE ROOM AND PLACED IN THE PRONE POSITION. THE LUMBOSACRAL AREA WAS CLEANED WITH CHLORAPREP SOLUTION AND DRAPED ASEPTICALLY. THE PROCEDURE WAS DONE UNDER STERILE CONDITIONS. I CHECKED LATERALITY AND THE LEVEL WHERE THE PROCEDURE WAS GOING TO BE PERFORMED WITH THE PATIENT AND THE SUPPORTING STAFF AT THE MOMENT OF THE TIME OUT IN THE PROCEDURE ROOM. UNDER FLUOROSCOPIC GUIDANCE, TARGETS WERE SELECTED AT THE INTERSECTION OF THE LEFT TRANSVERSE PROCESS OF L4, L5 AND ALA OF S1 WITH ITS RESPECTIVE SUPERIOR ARTICULAR PROCESS. LIDOCAINE WAS USED TO NUMB THE SKIN AND THE SUBCUTANEOUS TISSUE BELOW IT. SPINAL NEEDLE, 22-GAUGE WAS ADVANCED UNDER FLUOROSCOPIC GUIDANCE AND FOLLOWING PATIENT FEEDBACK UNTIL THE TARGETS WERE REACHED. POSITION OF THE NEEDLES WAS VERIFIED WITH AP AND LATERAL VIEWS. AFTER PROPER POSITION OF THE NEEDLES WAS ACHIEVED, ISOVUE-M DYE 30% 0.1 ML WAS INJECTED AT EACH SITE SHOWING ADEQUATE SPREAD OF THE DYE. THEN A SOLUTION OF 0.4 ML OF BUPIVACAINE 0.25% WAS INJECTED AT EACH SITE. THERE WAS NO EVIDENCE OF BLOOD, PARESTHESIA OR CEREBROSPINAL FLUID DURING THE PROCEDURE. THE PATIENT WAS SENT TO THE RECOVERY ROOM. THE PATIENT WAS MOVING THE EXTREMITIES AND DOING WELL. THERE WAS NO COMPLICATION DURING THE PROCEDURE. FLUOROSCOPY TIME WAS 46 SECONDS POST PROCEDURE NOTE THE PATIENT WILL DOCUMENT HIS PAIN LEVEL AND RESPONSE TO THIS PROCEDURE EVERY 30 MINUTES. THE PATIENT WILL BE SEEN IN A FOLLOW UP IN THE NEXT FEW WEEKS. FURTHER DETERMINATION FOR HIS CASE WILL BE DONE AT THE NEXT VISIT. INSTRUCTIONS WERE GIVEN, QUESTIONS WERE ANSWERED, AND THE PATIENT EXPRESSED UNDERSTANDING AND AGREED WITH THE PLAN. I, GABI ELLER, DOCUMENTED THE ABOVE INFORMATION ACTING A SCRIBE FOR DR. MAYO. I HAVE REVIEWED THE ABOVE DOCUMENT, WRITTEN BY GABI FLETCHER AND I VERIFY THAT IT IS ACCURATE PN WORKMANS' COMP OPINION IN YOUR OPINION, WAS THE INCIDENT THAT THE PATIENT DESCRIBED THE COMPETENT MEDICAL CAUSE OF THIS INJURY/ILLNESS? YES ARE THE PATIENT'S COMPLAINTS CONSISTENT WITH HIS/HER HISTORY OF THE INJURY/ILLNESS? YES IS THE PATIENT'S HISTORY OF THE INJURY/ILLNESS CONSISTENT WITH YOUR OBJECTIVE FINDING? YES WHAT IS THE PERCENTAGE OF TEMPORARY IMPAIRMENT? MODERATE TO MARKED = 66.7% IS THE PATIENT WORKING? NO DOCTOR ON SITE: IMANI NGUYEN MD DIAGNOSTIC IMAGING [facility] FACET BLOCK (PAIN)[id number] PROCEDURE CODES 50687 INJ PARAVERT F JNT L/S 1 LEV, MODIFIERS: LT 6045F RADXPS IN END [id number] PXD DISPOSITION & COMMUNICATION FOLLOW UP 3 WEEKS ELECTRONICALLY SIGNED BY IMANI MAYO MD ON 01/13/2017 AT 01:46 PM EDT DISCLAIMER : THIS IS A VISIT SUMMARY EXTRACTED FROM THE [employer] CHART. IT IS NOT A COPY OF THE [employer] PROGRESS NOTE. MTDD
== END ==
LOC: M PAIN 10:00
PROVIDERS: ATTEND Anesthesiology
DX: G89.29 Other chronic pain (principal); M47.816 Spondylosis without myelopathy or radiculopathy, lumbar region; I10 Essential (primary) hypertension; Z88.5 Allergy status to narcotic agent; Z79.891 Long term (current) use of opiate analgesic; Z79.899 Other long term (current) drug therapy

== ENCOUNTER → 2017-02-07 | Outpatient (CLI) | payer OTHER ==
[~2017-02-07] MED LIST changes: -BUPIVACAINE HCL 0.25% 30 ML VIAL As Ordered ONE; -LIDOCAINE 1% SDV INJ 30 ML VIAL As Ordered ONE
== END ==
LOC: M PAIN 13:45
PROVIDERS: ATTEND Nurse Practitioner Family
DX: M96.1 Postlaminectomy syndrome, not elsewhere classified (principal); M46.94 Unspecified inflammatory spondylopathy, thoracic region; I10 Essential (primary) hypertension; G89.29 Other chronic pain; Z79.891 Long term (current) use of opiate analgesic; Z79.899 Other long term (current) drug therapy; Z87.891 Personal history of nicotine dependence; Z88.5 Allergy status to narcotic agent

== ENCOUNTER → 2017-04-10 | Outpatient (CLI) | payer OTHER ==
[~2017-04-10] MED LIST changes: +BUPIVACAINE HCL 0.25% 30 ML VIAL As Ordered; -COLA100C5 PO; -COLA50CA3 PO; -CYCL10TA3 PO; -GABA-279 PO; -HYDR-3716 PO; -HYDR10TA20 PO; -HYDR7.5T30 PO; +ISOVUE-M 300 61% 15ML VIAL (Q9967) As Ordered; -LIDO5DIS41 TD; +LIDOCAINE 1% SDV INJ 30 ML VIAL As Ordered; -LIDOCAINE TOP; -MENSCAP PO; -MORP10SU PO; -PRIN10TA PO; -VALI5TAB PO; -[UNRECOGNIZED DRUG - OTHER] PO
== END ==
LOC: M PAIN 11:00
DX: G89.29 Other chronic pain (principal); M47.816 Spondylosis without myelopathy or radiculopathy, lumbar region; I10 Essential (primary) hypertension; Z79.891 Long term (current) use of opiate analgesic; Z79.899 Other long term (current) drug therapy; Z88.5 Allergy status to narcotic agent
CPT/HCPCS: Q9967

== ENCOUNTER → 2017-05-14 | Outpatient (CLI) | payer OTHER | LOC: M PAIN 09:30 | DX: M47.816 Spondylosis without myelopathy or radiculopathy, lumbar region (principal); M96.1 Postlaminectomy syndrome, not elsewhere classified; I10 Essential (primary) hypertension; Z79.891 Long term (current) use of opiate analgesic; Z79.899 Other long term (current) drug therapy; Z87.891 Personal history of nicotine dependence; Z88.5 Allergy status to narcotic agent; Z85.51 Personal history of malignant neoplasm of bladder | CPT/HCPCS: G0463 ==

== ENCOUNTER 2017-07-30 17:39 | Observation (INO) | payer OTHER, MEDICARE ==
[2017-07-30] MEDS: CARISOPRODOL 350 MG TAB PO (19:14)
[2017-07-30] MEDS: fentaNYL 100 MCG/2 ML INJECTION (J3010) IV ×2 (19:14→22:55)
[2017-07-30 19:17] LABS: HEMOGLOBIN 14.8 g/dl (13.5-17.5); MEAN CORPUSCULAR HEMOGLOBIN 29.1 pg (27.0-33.0); MEAN CORPUSCULAR HGB CONC 33.6 g/dl (32.0-36.5); MEAN CORPUSCULAR VOLUME 86.4 fl (80.0-96.0); PLATELET COUNT, AUTOMATED 320 10^3/uL (150-450); RED BLOOD COUNT 5.09 10^6/uL (4.30-6.10); RED CELL DISTRIBUTION WIDTH 13.5 % (11.5-14.5); WHITE BLOOD COUNT 5.9 10^3/uL (4.0-10.0)
[2017-07-30 19:48] LABS: ANION GAP 6 MEQ/L (8-16); BLOOD UREA NITROGEN 24 MG/DL (7-18); CALCIUM LEVEL 8.8 MG/DL (8.8-10.2); CARBON DIOXIDE LEVEL 24 MEQ/L (21-32); CHLORIDE LEVEL 111 MEQ/L (98-107); CREATININE FOR GFR 1.29 MG/DL (0.70-1.30); GLOMERULAR FILTRATION RATE > 60.0 (>49); GLUCOSE, FASTING 118 MG/DL (70-100); POTASSIUM SERUM 4.4 MEQ/L (3.5-5.1); SODIUM LEVEL 141 MEQ/L (136-145)
[2017-07-30] MEDS ORDERED: HYDROmorphone HCL 1 MG/ML SYRINGE (J1170) IV (23:15)
[2017-07-30] MEDS ORDERED: DOCUSATE SODIUM 100 MG CAP PO (23:30)
[2017-07-30] MEDS ORDERED: IPRATROPIUM 0.5MG/ALBUTEROL 2.5MG INH SOL UD 3ML (DUONEB)(J7620) NEB (23:45)
[2017-07-31] MEDS: HYDROmorphone HCL 1 MG/ML SYRINGE (J1170) IV ×2 (02:36→08:46)
[2017-07-31] MEDS ORDERED: SLF 3 ML SYR IV (03:00)
[2017-07-31] MEDS: ONDANSETRON 4MG/2ML VIAL (J2405) IV ×3 (04:15→20:18)
[2017-07-31 05:25] LABS: BASO % 0.3 % (0.0-1.0); EOS % 0.4 % (0.0-3.0); HEMATOCRIT 44.3 % (42.0-52.0); HEMOGLOBIN 14.7 g/dl (13.5-17.5); IMMATURE GRANULOCYTE % 0.3 % (0-3.0); LYMPH # 1.7 10^3/uL (1.5-4.5); LYMPH % 22.2 % (24.0-44.0); MEAN CORPUSCULAR HGB CONC 33.2 g/dl (32.0-36.5); MEAN CORPUSCULAR VOLUME 87.4 fl (80.0-96.0); MONO # 0.5 10^3/uL (0.0-0.8); NEUTROPHILS # 5.4 10^3/uL (1.8-7.7); NEUTROPHILS % 70.8 % (36.0-66.0); PLATELET COUNT, AUTOMATED 319 10^3/uL (150-450); RED BLOOD COUNT 5.07 10^6/uL (4.30-6.10); RED CELL DISTRIBUTION WIDTH 13.6 % (11.5-14.5); WHITE BLOOD COUNT 7.6 10^3/uL (4.0-10.0)
[2017-07-31 05:44] LABS: ALBUMIN 3.7 GM/DL (3.2-5.2); ALBUMIN/GLOBULIN RATIO 0.88 (1.00-1.93); ALKALINE PHOSPHATASE 86 U/L (45-117); ALT/SGPT 65 U/L (12-78); ANION GAP 7 MEQ/L (8-16); AST/SGOT 38 U/L (7-37); BILIRUBIN,TOTAL 0.6 MG/DL (0.2-1.0); BLOOD UREA NITROGEN 24 MG/DL (7-18); CALCIUM LEVEL 8.9 MG/DL (8.8-10.2); CARBON DIOXIDE LEVEL 22 MEQ/L (21-32); CHLORIDE LEVEL 111 MEQ/L (98-107); CREATININE FOR GFR 1.21 MG/DL (0.70-1.30); GLOMERULAR FILTRATION RATE > 60.0 (>49); GLUCOSE, FASTING 137 MG/DL (70-100); MAGNESIUM LEVEL 2.6 MG/DL (1.8-2.4); POTASSIUM SERUM 4.6 MEQ/L (3.5-5.1); SODIUM LEVEL 140 MEQ/L (136-145); TOTAL PROTEIN 7.9 GM/DL (6.4-8.2)
[2017-07-31] MEDS: SLF 3 ML SYR IV ×3 (06:00→20:18)
[2017-07-31] MEDS: ADVAIR HFA 230/21MCG INHALER INH ×2 (09:00→21:40)
[2017-07-31] MEDS ORDERED: PILL CRUSHER/CUTTER 1 EACH XX (11:30)
[2017-07-31] MEDS: ENOXAPARIN 40 MG/0.4 ML SYRINGE (J1650) SC (11:31)
[2017-07-31] MEDS: OMEPRAZOLE 20 MG CAP PO ×2 (11:32→11:35)
[2017-07-31] MEDS: LOSARTAN 50 MG TAB PO ×2 (11:32→11:35)
[2017-07-31] MEDS: CETIRIZINE (ZyrTEC) 10 MG TAB PO ×2 (11:33→11:35)
[2017-07-31] MEDS: METOCLOPRAMIDE INJ 10MG/2ML VIAL (J2765) IV ×2 (11:45→19:00)
[2017-07-31] MEDS: LIDOCAINE 5% (LIDODERM) PATCH TD (12:21)
[2017-07-31] MEDS: DOCUSATE SODIUM 100 MG CAP PO (18:37)
[2017-07-31] MEDS: ANEXSIA, NORCO 7.5MG/325MG TABLET(HYDROCODONE/APAP) PO (18:38)
[2017-07-31] MEDS: **NOTE PATIENT COMMENT** MISC XX (20:32)
[2017-08-01] MEDS: SLF 3 ML SYR IV ×2 (04:59→13:39)
[2017-08-01 07:06] LABS: BASO % 0.3 % (0.0-1.0); EOS % 0.5 % (0.0-3.0); HEMATOCRIT 43.2 % (42.0-52.0); HEMOGLOBIN 14.5 g/dl (13.5-17.5); IMMATURE GRANULOCYTE % 0.3 % (0-3.0); LYMPH # 1.8 10^3/uL (1.5-4.5); MEAN CORPUSCULAR HEMOGLOBIN 29.2 pg (27.0-33.0); MEAN CORPUSCULAR HGB CONC 33.6 g/dl (32.0-36.5); MEAN CORPUSCULAR VOLUME 87.1 fl (80.0-96.0); MONO # 0.5 10^3/uL (0.0-0.8); MONO % 6.8 % (0.0-5.0); NEUTROPHILS # 5.5 10^3/uL (1.8-7.7); NEUTROPHILS % 69.1 % (36.0-66.0); PLATELET COUNT, AUTOMATED 339 10^3/uL (150-450); RED BLOOD COUNT 4.96 10^6/uL (4.30-6.10); RED CELL DISTRIBUTION WIDTH 13.6 % (11.5-14.5)
[2017-08-01 07:23] LABS: ALBUMIN 3.5 GM/DL (3.2-5.2); ALBUMIN/GLOBULIN RATIO 0.81 (1.00-1.93); ALKALINE PHOSPHATASE 83 U/L (45-117); ALT/SGPT 64 U/L (12-78); ANION GAP 5 MEQ/L (8-16); AST/SGOT 34 U/L (7-37); BILIRUBIN,TOTAL 0.5 MG/DL (0.2-1.0); BLOOD UREA NITROGEN 27 MG/DL (7-18); CALCIUM LEVEL 8.7 MG/DL (8.8-10.2); CARBON DIOXIDE LEVEL 24 MEQ/L (21-32); CHLORIDE LEVEL 111 MEQ/L (98-107); CREATININE FOR GFR 1.31 MG/DL (0.70-1.30); GLUCOSE, FASTING 122 MG/DL (70-100); MAGNESIUM LEVEL 2.6 MG/DL (1.8-2.4); POTASSIUM SERUM 4.5 MEQ/L (3.5-5.1); SODIUM LEVEL 140 MEQ/L (136-145); TOTAL PROTEIN 7.8 GM/DL (6.4-8.2)
[2017-08-01] MEDS: ADVAIR HFA 230/21MCG INHALER INH (07:30)
[2017-08-01] MEDS: ENOXAPARIN 40 MG/0.4 ML SYRINGE (J1650) SC (08:22)
[2017-08-01] MEDS: OMEPRAZOLE 20 MG CAP PO (08:22)
[2017-08-01] MEDS: DOCUSATE SODIUM 100 MG CAP PO (08:22)
[2017-08-01] MEDS: SODIUM CHLORIDE 0.9% 1000 ML IV (08:22)
[2017-08-01] MEDS: LIDOCAINE 5% (LIDODERM) PATCH TD (08:22)
[2017-08-01] MEDS: LOSARTAN 50 MG TAB PO (08:23)
[2017-08-01] MEDS: ANEXSIA, NORCO 7.5MG/325MG TABLET(HYDROCODONE/APAP) PO (08:23)
[2017-08-01] MEDS: CETIRIZINE (ZyrTEC) 10 MG TAB PO (08:23)
[2017-08-01] MEDS: ONDANSETRON 4MG/2ML VIAL (J2405) IV (10:24)
== END 2017-08-01 18:15 | disposition home or self-care (01) ==
LOC: M PCU 07-31 02:05 → M ED 17:39 → M MS5PR 07-31 20:06 → M ED INP 23:40
DX: M54.9 Dorsalgia, unspecified (principal); G89.29 Other chronic pain; M79.605 Pain in left leg; R20.0 Anesthesia of skin; Z98.890 Other specified postprocedural states; Z98.1 Arthrodesis status; N17.9 Acute kidney failure, unspecified; R11.2 Nausea with vomiting, unspecified; R35.0 Frequency of micturition; R05 Cough; Z87.442 Personal history of urinary calculi; Z85.51 Personal history of malignant neoplasm of bladder; I10 Essential (primary) hypertension; J30.2 Other seasonal allergic rhinitis; J44.9 Chronic obstructive pulmonary disease, unspecified; K21.9 Gastro-esophageal reflux disease without esophagitis; Z87.891 Personal history of nicotine dependence; Z79.899 Other long term (current) drug therapy; Z79.51 Long term (current) use of inhaled steroids; Z88.5 Allergy status to narcotic agent
CPT/HCPCS: J1170

== ENCOUNTER → 2017-07-30 | Outpatient (CLI) | payer OTHER ==
[~2017-07-30] MED LIST changes: +TRIAMCINOLONE ACETONIDE SUSP 40 MG/ML VIAL (J3301) As Ordered
== END ==
LOC: M PAIN 13:00
DX: G89.29 Other chronic pain (principal); M47.816 Spondylosis without myelopathy or radiculopathy, lumbar region; I10 Essential (primary) hypertension; Z79.891 Long term (current) use of opiate analgesic; Z79.899 Other long term (current) drug therapy; Z88.5 Allergy status to narcotic agent; Z87.891 Personal history of nicotine dependence; Z85.51 Personal history of malignant neoplasm of bladder
CPT/HCPCS: J3301

== ENCOUNTER → 2017-09-27 | Outpatient (CLI) | payer OTHER | LOC: M PAIN 10:30 | DX: M47.816 Spondylosis without myelopathy or radiculopathy, lumbar region (principal); Z88.5 Allergy status to narcotic agent; Z79.891 Long term (current) use of opiate analgesic; Z79.899 Other long term (current) drug therapy; Z87.891 Personal history of nicotine dependence | CPT/HCPCS: G0463 ==

== ENCOUNTER → 2017-11-22 | Outpatient (CLI) | payer MEDICARE ==
[2017-11-22 12:59] LABS: ALBUMIN 3.8 GM/DL (3.2-5.2); ALBUMIN/GLOBULIN RATIO 0.93 (1.00-1.93); ALKALINE PHOSPHATASE 98 U/L (45-117); ALT/SGPT 59 U/L (12-78); ANION GAP 10 MEQ/L (8-16); AST/SGOT 32 U/L (7-37); BILIRUBIN,TOTAL 0.3 MG/DL (0.2-1.0); BLOOD UREA NITROGEN 23 MG/DL (7-18); CALCIUM LEVEL 9.2 MG/DL (8.8-10.2); CARBON DIOXIDE LEVEL 24 MEQ/L (21-32); CHLORIDE LEVEL 106 MEQ/L (98-107); CHOLESTEROL LEVEL 229 MG/DL (<200); CHOLESTEROL RISK RATIO 7.156 (<5); CREATININE FOR GFR 1.28 MG/DL (0.70-1.30); FREE T4 0.88 NG/DL (0.76-1.46); GLOMERULAR FILTRATION RATE > 60.0 (>49); GLUCOSE, FASTING 125 MG/DL (70-100); HDL CHOLESTEROL 32 MG/DL (>40); NON-HDL-C 197 MG/DL; POTASSIUM SERUM 4.8 MEQ/L (3.5-5.1); SODIUM LEVEL 140 MEQ/L (136-145); THYROXINE (T4) 9.4 UG/DL (4.5-12.0); TOTAL PROTEIN 7.9 GM/DL (6.4-8.2); TRIGLYCERIDES LEVEL 723 MG/DL (<150)
[2017-11-22 20:19] LABS: BASO # 0.1 10^3/uL (0.0-0.2); BASO % 0.5 % (0.0-1.0); EOS # 0.2 10^3/uL (0.0-0.50); EOS % 1.9 % (0.0-3.0); HEMATOCRIT 47.1 % (42.0-52.0); HEMOGLOBIN 15.5 g/dl (13.5-17.5); IMMATURE GRANULOCYTE % 0.3 % (0-3.0); LYMPH # 2.7 10^3/uL (1.5-4.5); LYMPH % 27.4 % (24.0-44.0); MEAN CORPUSCULAR HEMOGLOBIN 29.4 pg (27.0-33.0); MEAN CORPUSCULAR HGB CONC 32.9 g/dl (32.0-36.5); MEAN CORPUSCULAR VOLUME 89.4 fl (80.0-96.0); MONO # 0.7 10^3/uL (0.0-0.8); NEUTROPHILS # 6.1 10^3/uL (1.8-7.7); NEUTROPHILS % 62.9 % (36.0-66.0); PLATELET COUNT, AUTOMATED 310 10^3/uL (150-450); RED BLOOD COUNT 5.27 10^6/uL (4.30-6.10); RED CELL DISTRIBUTION WIDTH 13.2 % (11.5-14.5); WHITE BLOOD COUNT 9.7 10^3/uL (4.0-10.0)
[2017-11-22 20:32] LABS: ESTIMATED AVERAGE GLUCOSE 148 MG/DL (60-110); HEMOGLOBIN A1c 6.8 %
== END ==
LOC: M LRY 10:13
DX: E03.9 Hypothyroidism, unspecified (principal); I10 Essential (primary) hypertension; E78.2 Mixed hyperlipidemia; E11.9 Type 2 diabetes mellitus without complications
CPT/HCPCS: 84443

== ENCOUNTER → 2017-12-12 | Outpatient (CLI) | payer OTHER | LOC: M PAIN 13:00 | DX: M47.816 Spondylosis without myelopathy or radiculopathy, lumbar region (principal); I10 Essential (primary) hypertension; Z79.891 Long term (current) use of opiate analgesic; Z79.899 Other long term (current) drug therapy; Z88.8 Allergy status to other drugs, medicaments and biological substances; Z87.891 Personal history of nicotine dependence | CPT/HCPCS: G0463 ==

== ENCOUNTER → 2018-03-06 | Outpatient (CLI) | payer OTHER ==
[~2018-03-06] MED LIST changes: +ADV250INH INH; +ANOR1AER INH; -BUPIVACAINE HCL 0.25% 30 ML VIAL As Ordered; +COLA100C5 PO; +COLA50CA3 PO; +CYCL10TA3 PO; +GABA-1171 PO; +HYDR-3716 PO; +HYDR10TA20 PO; +HYDR7.5T30 PO; -ISOVUE-M 300 61% 15ML VIAL (Q9967) As Ordered; +LEVOTAB10 PO; +LIDO5DIS41 TD; -LIDOCAINE 1% SDV INJ 30 ML VIAL As Ordered; +LIDOCAINE TOP; +LOSA50TA88 PO; +MENSCAP PO; +MORP10SU PO; +OMEP20TA PO; +OMEP40CA2 PO; +PRIN10TA PO; -TRIAMCINOLONE ACETONIDE SUSP 40 MG/ML VIAL (J3301) As Ordered; +VALI5TAB PO; +[UNRECOGNIZED DRUG - OTHER] PO
--- NOTE | 2018-03-29 01:35 | ECWPNPC ---
PATIENT NAME: ISAIAH LAWTON : 1955 GENDER: MALE VISIT DATE: 03/06/2018 DISCHARGE DATE: 03/06/18 1208 VISIT LOCKED DATE TIME: PHYSICIAN: TEDDY YUN RESOURCE: TEDDY YUN REASON FOR APPOINTMENT 1. W/C BACK/MEDS HISTORY OF PRESENT ILLNESS HISTORY OF PRESENT ILLNESS: HERE FOR ROUTINE 2 MONTH F/U FOR WORK RELATED INJURY WITH DOI 1993.SUFFERS FROM PERSISTENT LOW BACK PAIN WITH LEFT LEG PAIN.DESCRIBES PAIN CONSTANT AND BURNING.REPORTING LET LEG AND FOOT PINS/NEEDLES SENSATION OVER THE PAST MONTH.USING HYDROCODONE 7.5/325 6TAB PER DAY THAT IS SOMEWHAT HELPFUL.RATING PAIN VAS 6/10.PAIN IS AGGREVATED BY INCREASE IN ACTIVITY.REPORING IMPROVED SLEEP WITH PERIODIC USE OF AMITRIPTYLINE 50MG AT HS.REPORTING IMPROVED BM'S WITH COLACE BID.DISCUSSED MEDICATION AND TREATMENT OPTIONS FOR LUMBAR RADICULAR SYMPTOMS LEFT LEG AND FOOT. PAIN THE PATIENT DESCRIBES THE PAIN... THE PATIENT DESCRIBES THE PAIN... FALL RISK SCREENING: SCREENING :NO FALLS IN THE PAST YEAR CURRENT MEDICATIONS TAKING OMEPRAZOLE 20 MG CAPSULE DELAYED RELEASE 1 CAPSULE ORALLY ONCE A DAY TAKING LOSARTAN POTASSIUM 50 MG TABLET 1 TABLET ORALLY ONCE A DAY TAKING LEVOCETIRIZINE DIHYDROCHLORIDE 5 MG TABLET 1 TABLET IN THE EVENING ORALLY ONCE A DAY TAKING FENOFIBRATE MICRONIZED 134 MG CAPSULE 1 CAPSULE WITH A MEAL ORALLY ONCE A DAY TAKING VENTOLIN HFA 108 (90 BASE) MCG/ACT AEROSOL SOLUTION 2 PUFFS NEEDED INHALATION EVERY 6 HRS TAKING COLACE 100 MG CAPSULE 1 CAPSULE ORALLY BID NEEDED FOR CONSTIPATION MDD2 TAKING AMITRIPTYLINE HCL 50 MG TABLET 1 TABLET ORALLY ONCE A DAY TAKING NORCO 7.5-325 MG TABLET 1 TABLET ORALLY EVERY 4 HRS PRN PAIN MDD=6 DISCONTINUED FLECTOR 1.3 % PATCH 1 PATCH TO SKIN TRANSDERMAL TWICE A DAY NEEDED FOR PAIN DISCONTINUED AMOXICILLIN-POT CLAVULANATE 875 MG TABLET 1 TABLET ORALLY EVERY 12 HRS DISCONTINUED VALIUM 5 MG TABLET 1 ORALLY 1 TAB 1HR PRE PROC. MDD1 DISCONTINUED DICYCLOMINE HCL 10 MG CAPSULE 2 CAPSULES ORALLY FOUR TIMES A DAY, NOTES: 01/07/17 0800 DISCONTINUED LISINOPRIL 10 MG TABLET 1 TABLET ORALLY ONCE A DAY MEDICATION LIST REVIEWED AND RECONCILED WITH THE PATIENT PAST MEDICAL HISTORY LOW BACK PAIN KIDNEY STONES BLADDER CANCER LEFT LEG WEAKNESS AFTER PROCEDURE HTN ALLERGIES MORPHINE SULFATE: HEADACHE: SIDE EFFECTS SURGICAL HISTORY LUMBAR SURGURY 2000 BLADDER SURGERY OR 09/2015 RIGHT HAND SURGERY AFTER CHAINSAW INJURY 1965 OR 1967 FAMILY HISTORY FATHER: 77 YRS, DIAGNOSED WITH HYPERTENSION, HEART DISEASE, STROKE MOTHER: ALIVE, DIAGNOSED WITH DIABETES 1 SON(S) - HEALTHY. DAD-CHF, OVER WEIGHT1 SON AFTER 4 TRUJILLO ACCIDENT. SOCIAL HISTORY GENERAL: TOBACCO USE ARE YOU A:FORMER SMOKER HOW LONG HAS IT BEEN SINCE YOU LAST SMOKED?1-5 YEARS ALCOHOL SCREENING DID YOU HAVE A DRINK CONTAINING ALCOHOL IN THE PAST YEAR?NO POINTS0 INTERPRETATIONNEGATIVE RECREATIONAL DRUG USE DRUG USE?NO CAFFEINE CAFFEINE USE?YES HOW OFTEN AND HOW MUCH? CUP OF COFFEE/DAY TAOIST [id number] ORTHODOXY LANGUAGE LANGUAGES SPOKEN:[place] LEARNING BARRIERS / SPECIAL NEEDS BARRIERS TO LEARNING?NO HEARING IMPAIRED?NO VISION IMPAIRED?YES :CORRECTIVE LENSES COGNITIVELY IMPAIRED?NO READINESS TO LEARN?YES LEARNING PREFERENCES?YES :BOOKLETS, HANDOUTS LEARNING CAPABILITIES PRESENT?YES EMOTIONAL BARRIERS?NO SPECIAL DEVICES?YES :CANE, WALKER LICENSED NURSE PRACTITIONER NEEDED?NO DOMESTIC VIOLENCE DO YOU FEEL SAFE IN YOUR ENVIRONMENT?YES PAIN CLINIC PFS, CLERGY, PUBLIC HEALTH REFERRALS PFS REFERRAL NEEDED?NO CLERGY REFERRAL NEEDED?NO PUBLIC HEALTH REFERRAL NEEDED?NO WAS THE PROVIDER NOTIFIED OF ANY PERTINENT INFO? N/A HAS THE PATIENT BEEN EDUCATED REGARDING HIS/HER PLAN OF CARE?YES HAS THE PATIENT BEEN EDUCATED REGARDING PAIN, THE RISK FOR PAIN, THE IMPORTANCE OF EFFECTIVE PAIN MANAGEMENT, AND THE PAIN ASSESSMENT PROCESS?YES ADVANCE DIRECTIVE ADVANCE DIRECTIVE DISCUSSED WITH PATIENT:YES 03/06/18 PT HAS NOT HAVENAY ADVANCED DIRECTIVES, AND HE DECLINES INFORMATION ON HCP AT THIS TIME. AD REVIEWED WITH PT 12/12/17 1330 LAS03/06/18 1145 REVIEWED WITH PT. AD. HOSPITALIZATION/MAJOR DIAGNOSTIC PROCEDURE SURGERIES LEFT LEG WEAKNESS AFTER PROCEDURE REVIEW OF SYSTEMS REVIEWED BY: PROVIDER: TEDDY RIVER . CONSTITUTIONAL: ANY CHANGE IN YOUR MEDICAL CONDITION? NO . CHILLS NO . FEVER NO . INFECTION: DO YOU HAVE NEW INFECTIONS? NO . DO YOU HAVE HISTORY OF MRSA? NO . MUSCULOSKELETAL: ANY NEW PATTERNS OF PAIN OR NUMBNESS? NO . GASTROENTEROLOGY: ANY NEW CHANGE IN BOWEL CONTROL? NO . GENITOURINARY: ANY NEW CHANGE IN BLADDER CONTROL? NO . IS THERE A CHANCE YOU COULD BE ? NO . HEMATOLOGY/LYMPH: DO YOU TAKE ANY BLOOD THINNERS? (FOR EXAMPLE- COUMADIN, PLAVIX, AGGRENOX, PLATEL, PRADAXA, OR XARELTO) NO . WHEN WAS YOUR LAST DOSE? DATE: TIME: . NEUROLOGY: HAVE YOU FALLEN IN THE PAST 6 MONTHS? NO . ANY NEW EXTREMITY NUMBNESS OR WEAKNESS? NO . CARDIOLOGY: DO YOU HAVE A PACEMAKER OR DEFIBRILLATOR? NO . RESPIRATORY: HAVE YOU BEEN SICK IN THE PAST WEEK? NO . FEVER NO . FLU LIKE SYMPTOMS? NO . COUGH NO . INTEGUMENTARY: DO YOU HAVE ANY RASHES OR OPEN SORES? NO . ALLERGIC/IMMUNO: ARE YOU ALLERGIC TO SHELLFISH OR IV DYE? NO . ANY NEW ALLERGIES? NO . PSYCHIATRIC: DO YOU HAVE THOUGHTS OF HURTING YOURSELF OR SOMEONE ELSE? NO . ARE YOU ABUSED, NEGLECTED, OR IN AN UNSAFE ENVIRONMENT? NO . ENDOCRINOLOGY: ARE YOU DIABETIC? NO . OTHER: DO YOU NEED ANY PRESCRIPTIONS? NO . IF YES, PLEASE LIST: ____ . ANY NEW PROBLEMS WITH YOUR MEDICATIONS? NO . WHEN DID YOU LAST EAT? ____ . WHEN DID YOU LAST DRINK? ____ . WHAT DID YOU LAST DRINK? ____ . NAME OF PERSON DRIVING YOU HOME? ____ . DO YOU HAVE ANY OTHER QUESTIONS OR CONCERNS NO . VITAL SIGNS WT 224.8 LBS, HT 71", BMI 31.35 INDEX, BP 148/89 MM HG, HR 72 /MIN, RR 16 /MIN, TEMP 98.3 F, OXYGEN SAT % 96%, SAFE IN ENV? (Y/N) Y, NA INITIALS AW 1138, REVIEWED BY: BALJEET. EXAMINATION GENERAL EXAMINATION: LUNGS:LUNG SOUNDS ARE CLEAR. HEART:HEART RATE REGULAR. MUSCULOSKELETAL:*, MUSCLE STRENGTH TESTING 5/5 RIGHT AND 3/5 LEFT.MUSCLE STRENGTH TESTING OVER LEFT LEG AGGREVATES PAIN. POSITIVE AMY TEST OVER LEFT LEG.SPECIFIC POINT TENDERNESS OVER L SIJ. PALPATION: + FOR PAIN OVER L/S SPINE. + FOR PAIN OVER LEFT L/S PARSPINALS.WELL HEALED SURGICAL SCAR L/S AXIS. DIAGNOSTIC: . ASSESSMENTS LUMBAR RADICULOPATHY - M54.16 (PRIMARY) POST LAMINECTOMY SYNDROME - M96.1 CHRONIC PRESCRIPTION OPIATE USE - Z79.891 TREATMENT LUMBAR RADICULOPATHY NOTES: DUE TO PATIENTS LUMBOSACRAL RADICULAR SYMPTOM IM PRESCRIBING GABAPENTIN 100MG BID., ISTOP REGISTRY REVIEWED AND DEMONSTRATES COMPLLIANCE. (REF # [id number] ) BRINGS IN MEDICATIONS WHICH IS APPROPRIATE FOR WHAT WAS DISPENSED. RECENT URINE TOXICOLOGY REVIEWED. NO UNAUTHORIZED MEDICATIONS. NO ILLICIT SUBSTANCES AND PRESCRIBED MEDICATIONS WERE PRESENT. , RISKS AND BENEFITS OF NARCOTIC/OPIOD MEDICATIONS WERE REVIEWED WITH PATIENT - THIS INCLUDES BUT IS NOT LIMITED TO RISK OF DEPENDANCE/DEVELOPMENT OF ADDICTION, MOOD DISTURBANCE AND DEPRESSION, OSTEOPOROSIS, HORMONAL AND LABIDAL CHANGES, RESPIRATORY DEPRESSION AND . PATIENT IS ADVISED NOT TO DRIVE OR DRINK ALCOHOL WHILE ON THESE MEDICATIONS. OTHERS REFILL NORCO TABLET, 7.5-325 MG, 1 TABLET, ORALLY, EVERY 4 HRS PRN PAIN MDD=6, 30 DAY(S), 180, REFILLS 0 CONTINUE AMITRIPTYLINE HCL TABLET, 50 MG, 1 TABLET, ORALLY, ONCE A DAY CONTINUE COLACE CAPSULE, 100 MG, 1 CAPSULE, ORALLY, BID NEEDED FOR CONSTIPATION MDD2 START GABAPENTIN CAPSULE, 100 MG, 1 CAPSULE, ORALLY, BID, 30 DAY(S), 60 CAPSULE, REFILLS 2 PROCEDURES PN WORKMANS' COMP OPINION IN YOUR OPINION, WAS THE INCIDENT THAT THE PATIENT DESCRIBED THE COMPETENT MEDICAL CAUSE OF THIS INJURY/ILLNESS? YES ARE THE PATIENT'S COMPLAINTS CONSISTENT WITH HIS/HER HISTORY OF THE INJURY/ILLNESS? YES IS THE PATIENT'S HISTORY OF THE INJURY/ILLNESS CONSISTENT WITH YOUR OBJECTIVE FINDING? YES WHAT IS THE PERCENTAGE OF TEMPORARY IMPAIRMENT? MODERATE TO MARKED = 66.7% IS THE PATIENT WORKING? NO DOCTOR ON SITE: IMANI NGUYEN MD DISPOSITION & COMMUNICATION FOLLOW UP 3 MONTHS ELECTRONICALLY SIGNED BY ALETA MACIEL ON 03/28/2018 AT 09:04 AM EST DISCLAIMER : THIS IS A VISIT SUMMARY EXTRACTED FROM THE [employer] CHART. IT IS NOT A COPY OF THE [employer] PROGRESS NOTE. ANGELO
== END ==
LOC: M PAIN 11:30
PROVIDERS: ATTEND Nurse Practitioner Family
DX: M54.16 Radiculopathy, lumbar region (principal); M96.1 Postlaminectomy syndrome, not elsewhere classified; I10 Essential (primary) hypertension; Z79.891 Long term (current) use of opiate analgesic; Z79.899 Other long term (current) drug therapy; Z88.5 Allergy status to narcotic agent; Z85.51 Personal history of malignant neoplasm of bladder; Z87.891 Personal history of nicotine dependence

== ENCOUNTER → 2018-07-28 | Outpatient (CLI) | payer OTHER ==
--- NOTE | 2018-08-20 01:55 | ECWPNPC ---
PATIENT NAME: ISAIAH LAWTON : 1955 GENDER: MALE VISIT DATE: 07/28/2018 DISCHARGE DATE: 07/28/18 1447 VISIT LOCKED DATE TIME: PHYSICIAN: TEDDY YUN RESOURCE: TEDDY YUN REASON FOR APPOINTMENT 1. W/C BACK HISTORY OF PRESENT ILLNESS HISTORY OF PRESENT ILLNESS: HERE FOR ROUTINE 2 MONTH F/U FOR WORK RELATED INJURY WITH DOI 1993.SUFFERS FROM PERSISTENT LOW BACK PAIN WITH LEFT LEG PAIN.DESCRIBES PAIN CONSTANT AND BURNING.USING HYDROCODONE 7.5/325 6TAB PER DAY THAT IS SOMEWHAT HELPFUL.RATING PAIN VAS 6/10.PAIN IS AGGREVATED BY INCREASE IN ACTIVITY.REPORING IMPROVED SLEEP WITH PERIODIC USE OF AMITRIPTYLINE 50MG AT HS.REPORTING IMPROVED BM'S WITH COLACE BID.REPORTING IMPROVEMENT WITH NEUROPATHIC PAIN IN LOWER EXTREMITIES WITH GABAPENTIN WE STARTED AT LAST VISIT SEVERAL MONTHS AGO.FEELS AN INCREASE IN NERVE PAIN IN LOWER EXTREMITIES. PAIN THE PATIENT DESCRIBES THE PAIN... THE PATIENT DESCRIBES THE PAIN... THE PATIENT DESCRIBES THE PAIN... FALL RISK SCREENING: SCREENING :NO FALLS REPORTED IN THE LAST YEAR CURRENT MEDICATIONS TAKING OMEPRAZOLE 20 MG CAPSULE DELAYED RELEASE 1 CAPSULE ORALLY ONCE A DAY TAKING LOSARTAN POTASSIUM 50 MG TABLET 1 TABLET ORALLY ONCE A DAY TAKING LEVOCETIRIZINE DIHYDROCHLORIDE 5 MG TABLET 1 TABLET IN THE EVENING ORALLY ONCE A DAY TAKING FENOFIBRATE MICRONIZED 134 MG CAPSULE 1 CAPSULE WITH A MEAL ORALLY ONCE A DAY TAKING VENTOLIN HFA 108 (90 BASE) MCG/ACT AEROSOL SOLUTION 2 PUFFS NEEDED INHALATION EVERY 6 HRS TAKING AMITRIPTYLINE HCL 50 MG TABLET 1 TABLET ORALLY ONCE A DAY TAKING COLACE 100 MG CAPSULE 1 CAPSULE ORALLY BID NEEDED FOR CONSTIPATION MDD2 TAKING GABAPENTIN 100 MG CAPSULE 1 CAPSULE ORALLY BID TAKING NORCO 7.5-325 MG TABLET 1 TABLET ORALLY EVERY 4 HRS PRN PAIN MDD=6 TAKING AMOXICILLIN-POT CLAVULANATE 875-125 MG TABLET 1 TABLET ORALLY EVERY 12 HRS TAKING ONE DAILY COMPLETE FOR MEN - TABLET 1 TABLET ORALLY DAILY MEDICATION LIST REVIEWED AND RECONCILED WITH THE PATIENT PAST MEDICAL HISTORY LOW BACK PAIN KIDNEY STONES BLADDER CANCER LEFT LEG WEAKNESS AFTER PROCEDURE HTN PNEUMONIA ALLERGIES MORPHINE SULFATE: HEADACHE - SIDE EFFECTS SURGICAL HISTORY LUMBAR SURGURY 2000 BLADDER SURGERY OR 09/2015 RIGHT HAND SURGERY AFTER CHAINSAW INJURY 1965 OR 1966 FAMILY HISTORY FATHER: 77 YRS, DIAGNOSED WITH HYPERTENSION, HEART DISEASE, STROKE MOTHER: ALIVE, DIABETES 1 SON(S) - HEALTHY. DAD-CHF, OVER WEIGHT\\N1 SON AFTER 4 TRUJILLO ACCIDENT. SOCIAL HISTORY GENERAL: TOBACCO USE ARE YOU A:FORMER SMOKER HOW LONG HAS IT BEEN SINCE YOU LAST SMOKED?1-5 YEARS PAIN CLINIC PFS, CLERGY, PUBLIC HEALTH REFERRALS PFS REFERRAL NEEDED?NO CLERGY REFERRAL NEEDED?NO PUBLIC HEALTH REFERRAL NEEDED?NO WAS THE PROVIDER NOTIFIED OF ANY PERTINENT INFO? N/A HAS THE PATIENT BEEN EDUCATED REGARDING HIS/HER PLAN OF CARE?YES HAS THE PATIENT BEEN EDUCATED REGARDING PAIN, THE RISK FOR PAIN, THE IMPORTANCE OF EFFECTIVE PAIN MANAGEMENT, AND THE PAIN ASSESSMENT PROCESS?YES LATEX QUESTIONNAIRE LATEX ALLERGY : HAVE YOU EVER DEVELOPED ANY TYPE OF REACTION AFTER HANDLING LATEX PRODUCTS SUCH RUBBER GLOVES, CONDOMS, DIAPHRAGMS, BALLOONS, SOCKS, OR UNDERWEAR?NO LATEX ALLERGY : HAVE YOU EVER DEVELOPED ANY TYPE OF REACTION DURING OR AFTER DENTAL APPOINTMENT, VAGINAL/RECTAL EXAMINATION, SURGICAL PROCEDURE, OR ANY OTHER EXPOSURE?NO LATEX RISK : HAVE YOU EVER HAD ANY DIFFICULTY BREATHING OR HIVES AFTER EATING OR HANDLING ANY FRUITS, OR VEGETABLES; SUCH KIWI, BANANAS, STONE FRUITS, OR CHESTNUTSNO LATEX RISK : DO YOU HAVE A PREVIOUS PERSONAL HISTORY OF MORE THAN NINE SURGERIES, SPINA BIFIDA, OR REPEATED CATHERTIZATIONS? NO LATEX RISK : ARE YOU FREQUENTLY EXPOSED TO LATEX PRODUCTS IN YOUR OCCUPATION?NO DATE ASKED : 07/28/2018 CAFFEINE CAFFEINE USE?YES HOW OFTEN AND HOW MUCH? CUP OF COFFEE/DAY ADVANCE DIRECTIVE ADVANCE DIRECTIVE DISCUSSED WITH PATIENT:YES PATIENT DECLINED HCP INFORMATION. ALEVISM [id number] CHURCH LANGUAGE LANGUAGES SPOKEN:[place]TH [place] DOMESTIC VIOLENCE DO YOU FEEL SAFE IN YOUR ENVIRONMENT?YES ALCOHOL SCREENING DID YOU HAVE A DRINK CONTAINING ALCOHOL IN THE PAST YEAR?NO POINTS0 INTERPRETATIONNEGATIVE RECREATIONAL DRUG USE DRUG USE?NO LEARNING BARRIERS / SPECIAL NEEDS BARRIERS TO LEARNING?NO HEARING IMPAIRED?NO VISION IMPAIRED?YES :CORRECTIVE LENSES COGNITIVELY IMPAIRED?NO READINESS TO LEARN?YES LEARNING PREFERENCES?YES :BOOKLETS, HANDOUTS LEARNING CAPABILITIES PRESENT?YES EMOTIONAL BARRIERS?NO SPECIAL DEVICES?YES :CANE, WALKER HUMAN SERVICES CASE MANAGER NEEDED?NO REVIEWED WITH PT 12/12/17 1330 LAS03/06/18 1145 REVIEWED WITH PT. HERBIE WITH PATIENT 07/28/18 1413 JS. HOSPITALIZATION/MAJOR DIAGNOSTIC PROCEDURE SURGERIES LEFT LEG WEAKNESS AFTER PROCEDURE REVIEW OF SYSTEMS REVIEWED BY: PROVIDER: TEDDY RIVER . CONSTITUTIONAL: ANY CHANGE IN YOUR MEDICAL CONDITION? NO . CHILLS NO . FEVER NO . INFECTION: DO YOU HAVE NEW INFECTIONS? NO . DO YOU HAVE HISTORY OF MRSA? NO . MUSCULOSKELETAL: ANY NEW PATTERNS OF PAIN OR NUMBNESS? NO . GASTROENTEROLOGY: ANY NEW CHANGE IN BOWEL CONTROL? NO . GENITOURINARY: ANY NEW CHANGE IN BLADDER CONTROL? NO . IS THERE A CHANCE YOU COULD BE ? NO . HEMATOLOGY/LYMPH: DO YOU TAKE ANY BLOOD THINNERS? (FOR EXAMPLE- COUMADIN, PLAVIX, AGGRENOX, PLATEL, PRADAXA, OR XARELTO) NO . WHEN WAS YOUR LAST DOSE? DATE: TIME: . NEUROLOGY: HAVE YOU FALLEN IN THE PAST 12 MONTHS? NO . ANY NEW EXTREMITY NUMBNESS OR WEAKNESS? NO . CARDIOLOGY: DO YOU HAVE A PACEMAKER OR DEFIBRILLATOR? NO . RESPIRATORY: HAVE YOU BEEN SICK IN THE PAST WEEK? YES, STATES HE IS GETTING OVER A TOUCH OF PNEUMONIA . FEVER NO . FLU LIKE SYMPTOMS? NO . COUGH NO . INTEGUMENTARY: DO YOU HAVE ANY RASHES OR OPEN SORES? NO . ALLERGIC/IMMUNO: ARE YOU ALLERGIC TO IV DYE? NO . ANY NEW ALLERGIES? NO . PSYCHIATRIC: DO YOU HAVE THOUGHTS OF HURTING YOURSELF OR SOMEONE ELSE? NO . ARE YOU ABUSED, NEGLECTED, OR IN AN UNSAFE ENVIRONMENT? NO . ENDOCRINOLOGY: ARE YOU DIABETIC? NO . OTHER: DO YOU NEED ANY PRESCRIPTIONS? YES . IF YES, PLEASE LIST: ____NORCO, GABAPENTIN . ANY NEW PROBLEMS WITH YOUR MEDICATIONS? NO . WHEN DID YOU LAST EAT? ____ . WHEN DID YOU LAST DRINK? ____ . WHAT DID YOU LAST DRINK? ____ . NAME OF PERSON DRIVING YOU HOME? ____ . DO YOU HAVE ANY OTHER QUESTIONS OR CONCERNS NO . VITAL SIGNS WT 223.4 LBS, HT 71", BMI 31.15 INDEX, BP 143/88 MM HG, HR 97 /MIN, RR 18 /MIN, TEMP 98.1 F, OXYGEN SAT % 96%, SAFE IN ENV? (Y/N) YES, NA INITIALS UT 13:59, REVIEWED BY: CASSI. EXAMINATION GENERAL EXAMINATION: GENERAL APPEARANCE:AWAKE,ALERT ,PLEAASANT . PSYCHAFFECT NORMAL . LUNGS:LUNG ZACARIAS ARE CLEAR TO AUSCULTATION BILATERALLY. GOOD MOVEMENT OF AIR . HEART:S1, S2 IN A REGULAR RATE AND RHYTHM. NO SIGNIFICANT MURMURS, RUBS OR GALLOPS NOTED . ASSESSMENTS LUMBAR RADICULOPATHY - M54.16 (PRIMARY) POST LAMINECTOMY SYNDROME - M96.1 CHRONIC PRESCRIPTION OPIATE USE - Z79.891 TREATMENT LUMBAR RADICULOPATHY CONTINUE COLACE CAPSULE, 100 MG, 1 CAPSULE, ORALLY, BID NEEDED FOR CONSTIPATION MDD2 CONTINUE AMITRIPTYLINE HCL TABLET, 50 MG, 1 TABLET, ORALLY, ONCE A DAY INCREASE GABAPENTIN CAPSULE, 300 MG, 1 CAPSULE, ORALLY, BID MDD2, 30 DAY(S), 60, REFILLS 2 REFILL NORCO TABLET, 7.5-325 MG, 1 TABLET, ORALLY, EVERY 4 HRS PRN PAIN MDD=6, 30 DAY(S), 180, REFILLS 0 NOTES: ISTOP REGISTRY REVIEWED AND DEMONSTRATES COMPLLIANCE. (REF # [id number] ) BRINGS IN MEDICATIONS WHICH IS APPROPRIATE FOR WHAT WAS DISPENSED. RECENT URINE TOXICOLOGY REVIEWED. NO UNAUTHORIZED MEDICATIONS. NO ILLICIT SUBSTANCES AND PRESCRIBED MEDICATIONS WERE PRESENT. URINE TOX TODAY, RISKS AND BENEFITS OF NARCOTIC/OPIOD MEDICATIONS WERE REVIEWED WITH PATIENT - THIS INCLUDES BUT IS NOT LIMITED TO RISK OF DEPENDANCE/DEVELOPMENT OF ADDICTION, MOOD DISTURBANCE AND DEPRESSION, OSTEOPOROSIS, HORMONAL AND LABIDAL CHANGES, RESPIRATORY DEPRESSION AND . PATIENT IS ADVISED NOT TO DRIVE OR DRINK ALCOHOL WHILE ON THESE MEDICATIONS. PROCEDURES PN WORKMANS' COMP OPINION IN YOUR OPINION, WAS THE INCIDENT THAT THE PATIENT DESCRIBED THE COMPETENT MEDICAL CAUSE OF THIS INJURY/ILLNESS? YES ARE THE PATIENT'S COMPLAINTS CONSISTENT WITH HIS/HER HISTORY OF THE INJURY/ILLNESS? YES IS THE PATIENT'S HISTORY OF THE INJURY/ILLNESS CONSISTENT WITH YOUR OBJECTIVE FINDING? YES WHAT IS THE PERCENTAGE OF TEMPORARY IMPAIRMENT? MODERATE TO MARKED = 66.7% IS THE PATIENT WORKING? NO DOCTOR ON SITE: IMANI NGUYEN MD PROCEDURE CODES FA211 ESTABILISHED PATIENT [facility] CHARGE DISPOSITION & COMMUNICATION FOLLOW UP 2 MONTHS ELECTRONICALLY SIGNED BY ALETA MACIEL ON 08/19/2018 AT 02:31 PM EDT DISCLAIMER : THIS IS A VISIT SUMMARY EXTRACTED FROM THE [facility] CHART. IT IS NOT A COPY OF THE [facility] PROGRESS NOTE. ANGELO
== END ==
LOC: M PAIN 13:45
PROVIDERS: ATTEND Nurse Practitioner Family
DX: M54.16 Radiculopathy, lumbar region (principal); M96.1 Postlaminectomy syndrome, not elsewhere classified; I10 Essential (primary) hypertension; Z79.891 Long term (current) use of opiate analgesic; Z79.899 Other long term (current) drug therapy; Z88.5 Allergy status to narcotic agent; Z87.891 Personal history of nicotine dependence

== ENCOUNTER → 2018-12-08 | Outpatient (CLI) | payer OTHER ==
--- NOTE | 2018-12-23 01:39 | ECWPNPC ---
PATIENT NAME: ISAIAH LAWTON : 1955 GENDER: MALE VISIT DATE: 12/08/2018 DISCHARGE DATE: 12/08/18 1445 VISIT LOCKED DATE TIME: PHYSICIAN: TEDDY YUN RESOURCE: TEDDY YUN REASON FOR APPOINTMENT 1. W/C BACK HISTORY OF PRESENT ILLNESS HISTORY OF PRESENT ILLNESS: HERE FOR ROUTINE 2 MONTH F/U FOR WORK RELATED INJURY WITH DOI 1993.SUFFERS FROM PERSISTENT LOW BACK PAIN WITH LEFT LEG PAIN.DESCRIBES PAIN CONSTANT AND BURNING.USING HYDROCODONE 7.5/325 6TAB PER DAY THAT IS SOMEWHAT HELPFUL.RATING PAIN VAS 6/10.PAIN IS AGGREVATED BY INCREASE IN ACTIVITY.REPORING IMPROVED SLEEP WITH PERIODIC USE OF AMITRIPTYLINE 50MG AT HS.REPORTING NORMAL BM'S WITH COLACE BID. PAIN THE PATIENT DESCRIBES THE PAIN... THE PATIENT DESCRIBES THE PAIN... THE PATIENT DESCRIBES THE PAIN... THE PATIENT DESCRIBES THE PAIN... FALL RISK SCREENING: SCREENING :NO FALLS REPORTED IN THE LAST YEAR CURRENT MEDICATIONS TAKING OMEPRAZOLE 20 MG CAPSULE DELAYED RELEASE 1 CAPSULE ORALLY ONCE A DAY TAKING LOSARTAN POTASSIUM 50 MG TABLET 1 TABLET ORALLY ONCE A DAY TAKING LEVOCETIRIZINE DIHYDROCHLORIDE 5 MG TABLET 1 TABLET IN THE EVENING ORALLY ONCE A DAY TAKING FENOFIBRATE MICRONIZED 134 MG CAPSULE 1 CAPSULE WITH A MEAL ORALLY ONCE A DAY TAKING VENTOLIN HFA 108 (90 BASE) MCG/ACT AEROSOL SOLUTION 2 PUFFS NEEDED INHALATION EVERY 6 HRS TAKING ONE DAILY COMPLETE FOR MEN - TABLET 1 TABLET ORALLY DAILY TAKING COLACE 100 MG CAPSULE 1 CAPSULE ORALLY BID NEEDED FOR CONSTIPATION MDD2 TAKING GABAPENTIN 300 MG CAPSULE 1 CAPSULE ORALLY BID MDD2, NOTES: HAS NOT BEEN TAKING STATES HE DOES NOT HAVE IT TAKING NORCO 7.5-325 MG TABLET 1 TABLET ORALLY EVERY 4 HRS PRN PAIN MDD=6 TAKING METFORMIN HCL 1000 MG TABLET 1 TABLET WITH A MEAL ORALLY ONCE A DAY NOT-TAKING AMOXICILLIN-POT CLAVULANATE 875-125 MG TABLET 1 TABLET ORALLY EVERY 12 HRS NOT-TAKING AMITRIPTYLINE HCL 50 MG TABLET 1 TABLET ORALLY ONCE A DAY MEDICATION LIST REVIEWED AND RECONCILED WITH THE PATIENT PAST MEDICAL HISTORY LOW BACK PAIN KIDNEY STONES BLADDER CANCER LEFT LEG WEAKNESS AFTER PROCEDURE HTN PNEUMONIA ALLERGIES MORPHINE SULFATE: HEADACHE - SIDE EFFECTS SURGICAL HISTORY LUMBAR SURGURY 2000 BLADDER SURGERY OR 09/2015 RIGHT HAND SURGERY AFTER CHAINSAW INJURY 1965 OR 1966 FAMILY HISTORY FATHER: 77 YRS, DIAGNOSED WITH HYPERTENSION, UNSPECIFIED HEART DISEASE, UNSPECIFIED CEREBRAL ARTERY OCCLUSION WITH CEREBRAL INFARCTION MOTHER: ALIVE, DIABETES 1 SON(S) - HEALTHY. DAD-CHF, OVER WEIGHT\\N1 SON AFTER 4 TRUJILLO ACCIDENT. SOCIAL HISTORY GENERAL: TOBACCO USE ARE YOU A:FORMER SMOKER HOW LONG HAS IT BEEN SINCE YOU LAST SMOKED?1-5 YEARS PAIN CLINIC PFS, CLERGY, PUBLIC HEALTH REFERRALS PFS REFERRAL NEEDED?NO CLERGY REFERRAL NEEDED?NO PUBLIC HEALTH REFERRAL NEEDED?NO WAS THE PROVIDER NOTIFIED OF ANY PERTINENT INFO? N/A HAS THE PATIENT BEEN EDUCATED REGARDING HIS/HER PLAN OF CARE?YES HAS THE PATIENT BEEN EDUCATED REGARDING PAIN, THE RISK FOR PAIN, THE IMPORTANCE OF EFFECTIVE PAIN MANAGEMENT, AND THE PAIN ASSESSMENT PROCESS?YES LATEX QUESTIONNAIRE LATEX ALLERGY : HAVE YOU EVER DEVELOPED ANY TYPE OF REACTION AFTER HANDLING LATEX PRODUCTS SUCH RUBBER GLOVES, CONDOMS, DIAPHRAGMS, BALLOONS, SOCKS, OR UNDERWEAR?NO LATEX ALLERGY : HAVE YOU EVER DEVELOPED ANY TYPE OF REACTION DURING OR AFTER DENTAL APPOINTMENT, VAGINAL/RECTAL EXAMINATION, SURGICAL PROCEDURE, OR ANY OTHER EXPOSURE?NO DATE ASKED : 07/28/2018 LATEX RISK : HAVE YOU EVER HAD ANY DIFFICULTY BREATHING OR HIVES AFTER EATING OR HANDLING ANY FRUITS, OR VEGETABLES; SUCH KIWI, BANANAS, STONE FRUITS, OR CHESTNUTSNO LATEX RISK : DO YOU HAVE A PREVIOUS PERSONAL HISTORY OF MORE THAN NINE SURGERIES, SPINA BIFIDA, OR REPEATED CATHERIZATIONS? NO LATEX RISK : ARE YOU FREQUENTLY EXPOSED TO LATEX PRODUCTS IN YOUR OCCUPATION?NO CAFFEINE CAFFEINE USE?YES HOW OFTEN AND HOW MUCH? CUP OF COFFEE/DAY ADVANCE DIRECTIVE ADVANCE DIRECTIVE DISCUSSED WITH PATIENT:YES PATIENT DECLINED HCP INFORMATION. SPIRITISM [id number] JUDAISM LANGUAGE LANGUAGES SPOKEN:GAMBIAN DOMESTIC VIOLENCE DO YOU FEEL SAFE IN YOUR ENVIRONMENT?YES ALCOHOL SCREENING DID YOU HAVE A DRINK CONTAINING ALCOHOL IN THE PAST YEAR?NO POINTS0 INTERPRETATIONNEGATIVE RECREATIONAL DRUG USE DRUG USE?NO LEARNING BARRIERS / SPECIAL NEEDS BARRIERS TO LEARNING?NO HEARING IMPAIRED?NO VISION IMPAIRED?YES COGNITIVELY IMPAIRED?NO :CORRECTIVE LENSES READINESS TO LEARN?YES LEARNING PREFERENCES?YES :BOOKLETS, HANDOUTS LEARNING CAPABILITIES PRESENT?YES EMOTIONAL BARRIERS?NO SPECIAL DEVICES?YES :CANE, [place] AGRICULTURAL AGENT NEEDED?NO REVIEWED WITH PT 12/12/17 1330 LAS03/06/18 1145 REVIEWED WITH PT. HERBIE WITH PATIENT 07/28/18 1413 JSREVIEWED WITH PT 12/08/18 1417 NIKIA. HOSPITALIZATION/MAJOR DIAGNOSTIC PROCEDURE SURGERIES LEFT LEG WEAKNESS AFTER PROCEDURE REVIEW OF SYSTEMS REVIEWED BY: PROVIDER: TEDDY RIVER . CONSTITUTIONAL: ANY CHANGE IN YOUR MEDICAL CONDITION? NO . CHILLS NO . FEVER NO . INFECTION: DO YOU HAVE NEW INFECTIONS? NO . DO YOU HAVE HISTORY OF MRSA? NO . MUSCULOSKELETAL: ANY NEW PATTERNS OF PAIN OR NUMBNESS? YES- STATES HE HAS INCREASED LOWER BACK PAIN AT HS, STATES HE HAS NUMBNESS IN BLE, STATES LEFT LEG IS WORSE THAN RIGHT . GASTROENTEROLOGY: ANY NEW CHANGE IN BOWEL CONTROL? NO . GENITOURINARY: ANY NEW CHANGE IN BLADDER CONTROL? NO . IS THERE A CHANCE YOU COULD BE ? NO . HEMATOLOGY/LYMPH: DO YOU TAKE ANY BLOOD THINNERS? (FOR EXAMPLE- COUMADIN, PLAVIX, AGGRENOX, PLATEL, PRADAXA, OR XARELTO) NO . WHEN WAS YOUR LAST DOSE? DATE: TIME: . NEUROLOGY: HAVE YOU FALLEN IN THE PAST 12 MONTHS? NO . ANY NEW EXTREMITY NUMBNESS OR WEAKNESS? NO . CARDIOLOGY: DO YOU HAVE A PACEMAKER OR DEFIBRILLATOR? NO . RESPIRATORY: HAVE YOU BEEN SICK IN THE PAST WEEK? NO . FEVER NO . FLU LIKE SYMPTOMS? NO . COUGH NO . INTEGUMENTARY: DO YOU HAVE ANY RASHES OR OPEN SORES? NO . ALLERGIC/IMMUNO: ARE YOU ALLERGIC TO IV DYE? NO . ANY NEW ALLERGIES? NO . PSYCHIATRIC: DO YOU HAVE THOUGHTS OF HURTING YOURSELF OR SOMEONE ELSE? NO . ARE YOU ABUSED, NEGLECTED, OR IN AN UNSAFE ENVIRONMENT? NO . ENDOCRINOLOGY: ARE YOU DIABETIC? NO . OTHER: DO YOU NEED ANY PRESCRIPTIONS? YES . IF YES, PLEASE LIST: ____STATES HE HAS NOT HAD GABAPENTIN, NEEDS REFILLED . ANY NEW PROBLEMS WITH YOUR MEDICATIONS? NO . WHEN DID YOU LAST EAT? ____ . WHEN DID YOU LAST DRINK? ____ . WHAT DID YOU LAST DRINK? ____ . NAME OF PERSON DRIVING YOU HOME? ____ . DO YOU HAVE ANY OTHER QUESTIONS OR CONCERNS NO- STATES HE WILL BE HAVING THE FLU SHOT SOON . VITAL SIGNS WT 236.0 LBS, HT 71", BMI 32.91 INDEX, BP 130/71 MM HG, HR 79%, RR 18 /MIN, TEMP 98.3 F, OXYGEN SAT % 97%, SAFE IN ENV? (Y/N) YES, NA INITIALS AW 1418, REVIEWED BY: NIKIA. EXAMINATION GENERAL EXAMINATION: GENERALAWAKE,ALERT ,PLEAASANT . PSYCHAFFECT NORMAL . LUNGS:LUNG ZACARIAS ARE CLEAR TO AUSCULTATION BILATERALLY. GOOD MOVEMENT OF AIR . HEART:S1, S2 IN A REGULAR RATE AND RHYTHM. NO SIGNIFICANT MURMURS, RUBS OR GALLOPS NOTED . ASSESSMENTS LUMBAR RADICULOPATHY - M54.16 (PRIMARY) TREATMENT LUMBAR RADICULOPATHY CONTINUE COLACE CAPSULE, 100 MG, 1 CAPSULE, ORALLY, BID NEEDED FOR CONSTIPATION MDD2 REFILL GABAPENTIN CAPSULE, 300 MG, 1 CAPSULE, ORALLY, BID MDD2, 30 DAY(S), 60, REFILLS 2, NOTES: HAS NOT BEEN TAKING STATES HE DOES NOT HAVE IT REFILL NORCO TABLET, 7.5-325 MG, 1 TABLET, ORALLY, EVERY 4 HRS PRN PAIN MDD=6, 30 DAY(S), 180, REFILLS 0 NOTES: ISTOP REGISTRY REVIEWED AND DEMONSTRATES COMPLLIANCE. (REF # ) BRINGS IN MEDICATIONS WHICH IS APPROPRIATE FOR WHAT WAS DISPENSED. RECENT URINE TOXICOLOGY REVIEWED. NO UNAUTHORIZED MEDICATIONS. NO ILLICIT SUBSTANCES AND PRESCRIBED MEDICATIONS WERE PRESENT. , RISKS AND BENEFITS OF NARCOTIC/OPIOD MEDICATIONS WERE REVIEWED WITH PATIENT - THIS INCLUDES BUT IS NOT LIMITED TO RISK OF DEPENDANCE/DEVELOPMENT OF ADDICTION, MOOD DISTURBANCE AND DEPRESSION, OSTEOPOROSIS, HORMONAL AND LABIDAL CHANGES, RESPIRATORY DEPRESSION AND . PATIENT IS ADVISED NOT TO DRIVE OR DRINK ALCOHOL WHILE ON THESE MEDICATIONS. PROCEDURES PN WORKMANS' COMP OPINION IN YOUR OPINION, WAS THE INCIDENT THAT THE PATIENT DESCRIBED THE COMPETENT MEDICAL CAUSE OF THIS INJURY/ILLNESS? YES ARE THE PATIENT'S COMPLAINTS CONSISTENT WITH HIS/HER HISTORY OF THE INJURY/ILLNESS? YES IS THE PATIENT'S HISTORY OF THE INJURY/ILLNESS CONSISTENT WITH YOUR OBJECTIVE FINDING? YES WHAT IS THE PERCENTAGE OF TEMPORARY IMPAIRMENT? MODERATE TO MARKED = 66.7% IS THE PATIENT WORKING? NO DOCTOR ON SITE: IMANI NGUYEN MD PROCEDURE CODES FA211 ESTABILISHED PATIENT [facility] FACILITY CHARGE DISPOSITION & COMMUNICATION FOLLOW UP 3 MONTHS ELECTRONICALLY SIGNED BY ALETA MACIEL ON 12/22/2018 AT 04:09 PM EDT DISCLAIMER : THIS IS A VISIT SUMMARY EXTRACTED FROM THE [employer] CHART. IT IS NOT A COPY OF THE [employer] PROGRESS NOTE. MTDD
== END ==
LOC: M PAIN 14:15
PROVIDERS: ATTEND Nurse Practitioner Family
DX: M54.16 Radiculopathy, lumbar region (principal); I10 Essential (primary) hypertension; Z87.891 Personal history of nicotine dependence; Z88.5 Allergy status to narcotic agent; Z79.84 Long term (current) use of oral hypoglycemic drugs; Z79.891 Long term (current) use of opiate analgesic; Z79.899 Other long term (current) drug therapy

== ENCOUNTER → 2019-04-14 | Outpatient (CLI) | payer OTHER ==
[~2019-04-14] MED LIST changes: +OMEP-358 PO; -OMEP20TA PO; -OMEP40CA2 PO; +OMEP40CA97 PO
--- NOTE | 2019-04-29 01:41 | ECWPNPC ---
PATIENT NAME: ISAIAH LAWTON : 1955 GENDER: MALE VISIT DATE: 04/14/2019 DISCHARGE DATE: 04/14/19 1036 VISIT LOCKED DATE TIME: PHYSICIAN: TEDDY YUN RESOURCE: TEDDY YUN REASON FOR APPOINTMENT 1. W/C BACK HISTORY OF PRESENT ILLNESS HISTORY OF PRESENT ILLNESS: HERE FOR ROUTINE 2 MONTH F/U FOR WORK RELATED INJURY WITH DOI 1993.SUFFERS FROM PERSISTENT LOW BACK PAIN WITH LEFT LEG PAIN.DESCRIBES PAIN CONSTANT AND BURNING.USING HYDROCODONE 7.5/325 6TAB PER DAY THAT IS SOMEWHAT HELPFUL.RATING PAIN VAS 6/10.PAIN IS AGGREVATED BY INCREASE IN ACTIVITY.TAKING 300MG BID.REPORTING NORMAL BM'S WITH COLACE BID. PAIN THE PATIENT DESCRIBES THE PAIN... FALL RISK SCREENING: SCREENING :NO FALLS REPORTED IN THE LAST YEAR CURRENT MEDICATIONS TAKING OMEPRAZOLE 20 MG CAPSULE DELAYED RELEASE 1 CAPSULE ORALLY ONCE A DAY TAKING LOSARTAN POTASSIUM 50 MG TABLET 1 TABLET ORALLY ONCE A DAY TAKING LEVOCETIRIZINE DIHYDROCHLORIDE 5 MG TABLET 1 TABLET IN THE EVENING ORALLY ONCE A DAY TAKING FENOFIBRATE MICRONIZED 134 MG CAPSULE 1 CAPSULE WITH A MEAL ORALLY ONCE A DAY TAKING VENTOLIN HFA 108 (90 BASE) MCG/ACT AEROSOL SOLUTION 2 PUFFS NEEDED INHALATION EVERY 6 HRS TAKING ONE DAILY COMPLETE FOR MEN - TABLET 1 TABLET ORALLY DAILY TAKING METFORMIN HCL 1000 MG TABLET 1 TABLET WITH A MEAL ORALLY ONCE A DAY TAKING COLACE 100 MG CAPSULE 1 CAPSULE ORALLY BID NEEDED FOR CONSTIPATION MDD2 TAKING GABAPENTIN 300 MG CAPSULE 1 CAPSULE ORALLY BID MDD2, NOTES: HAS NOT BEEN TAKING STATES HE DOES NOT HAVE IT TAKING NORCO 7.5-325 MG TABLET 1 TABLET ORALLY EVERY 4 HRS PRN PAIN MDD=6 TAKING ATORVASTATIN CALCIUM 20 MG TABLET 1 TABLET ORALLY ONCE A DAY NOT-TAKING AMOXICILLIN-POT CLAVULANATE 875-125 MG TABLET 1 TABLET ORALLY EVERY 12 HRS NOT-TAKING AMITRIPTYLINE HCL 50 MG TABLET 1 TABLET ORALLY ONCE A DAY MEDICATION LIST REVIEWED AND RECONCILED WITH THE PATIENT PAST MEDICAL HISTORY LOW BACK PAIN KIDNEY STONES 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 DAD-CHF, OVER WEIGHT\\N1 SON AFTER 4 TRUJILLO ACCIDENT. SOCIAL HISTORY GENERAL: TOBACCO USE ARE YOU A:FORMER SMOKER HOW LONG HAS IT BEEN SINCE YOU LAST SMOKED?1-5 YEARS PAIN CLINIC PFS, CLERGY, PUBLIC HEALTH REFERRALS PFS REFERRAL NEEDED?NO CLERGY REFERRAL NEEDED?NO PUBLIC HEALTH REFERRAL NEEDED?NO WAS THE PROVIDER NOTIFIED OF ANY PERTINENT INFO? N/A HAS THE PATIENT BEEN EDUCATED REGARDING HIS/HER PLAN OF CARE?YES HAS THE PATIENT BEEN EDUCATED REGARDING PAIN, THE RISK FOR PAIN, THE IMPORTANCE OF EFFECTIVE PAIN MANAGEMENT, AND THE PAIN ASSESSMENT PROCESS?YES LATEX QUESTIONNAIRE LATEX ALLERGY : HAVE YOU EVER DEVELOPED ANY TYPE OF REACTION AFTER HANDLING LATEX PRODUCTS SUCH RUBBER GLOVES, CONDOMS, DIAPHRAGMS, BALLOONS, SOCKS, OR UNDERWEAR?NO LATEX ALLERGY : HAVE YOU EVER DEVELOPED ANY TYPE OF REACTION DURING OR AFTER DENTAL APPOINTMENT, VAGINAL/RECTAL EXAMINATION, SURGICAL PROCEDURE, OR ANY OTHER EXPOSURE?NO LATEX RISK : HAVE YOU EVER HAD ANY DIFFICULTY BREATHING OR HIVES AFTER EATING OR HANDLING ANY FRUITS, OR VEGETABLES; SUCH KIWI, BANANAS, STONE FRUITS, OR CHESTNUTSNO LATEX RISK : DO YOU HAVE A PREVIOUS PERSONAL HISTORY OF MORE THAN NINE SURGERIES, SPINA BIFIDA, OR REPEATED CATHERIZATIONS? NO LATEX RISK : ARE YOU FREQUENTLY EXPOSED TO LATEX PRODUCTS IN YOUR OCCUPATION?NO DATE ASKED : 07/28/2018 CAFFEINE CAFFEINE USE?YES HOW OFTEN AND HOW MUCH? CUP OF COFFEE/DAY ADVANCE DIRECTIVE ADVANCE DIRECTIVE DISCUSSED WITH PATIENT:YES PATIENT DECLINED HCP INFORMATION. SIKHISM [id number] [employer] LANGUAGE LANGUAGES SPOKEN:[place] DOMESTIC VIOLENCE DO YOU FEEL SAFE IN YOUR ENVIRONMENT?YES ALCOHOL SCREENING DID YOU HAVE A DRINK CONTAINING ALCOHOL IN THE PAST YEAR?NO POINTS0 INTERPRETATIONNEGATIVE RECREATIONAL DRUG USE DRUG USE?NO LEARNING BARRIERS / SPECIAL NEEDS BARRIERS TO LEARNING?NO HEARING IMPAIRED?NO VISION IMPAIRED?YES COGNITIVELY IMPAIRED?NO :CORRECTIVE LENSES READINESS TO LEARN?YES LEARNING PREFERENCES?YES :BOOKLETS, HANDOUTS LEARNING CAPABILITIES PRESENT?YES EMOTIONAL BARRIERS?NO SPECIAL DEVICES?YES :CANE, [place]ALK[place] CUFF MAKER NEEDED?NO REVIEWED WITH PT 12/12/17 1330 LAS03/06/18 1145 REVIEWED WITH PT. ADREVIEWED WITH PATIENT 07/28/18 1413 JSREVIEWED WITH PT 12/08/18 1417 NLJ. HOSPITALIZATION/MAJOR DIAGNOSTIC PROCEDURE SURGERIES LEFT LEG WEAKNESS AFTER PROCEDURE REVIEW OF SYSTEMS REVIEWED BY: PROVIDER: TEDDY RIVER . CONSTITUTIONAL: ANY CHANGE IN YOUR MEDICAL CONDITION? NO . CHILLS NO . FEVER NO . INFECTION: DO YOU HAVE NEW INFECTIONS? NO . DO YOU HAVE HISTORY OF MRSA? NO . MUSCULOSKELETAL: ANY NEW PATTERNS OF PAIN OR NUMBNESS? NO . GASTROENTEROLOGY: ANY NEW CHANGE IN BOWEL CONTROL? NO . GENITOURINARY: ANY NEW CHANGE IN BLADDER CONTROL? NO . IS THERE A CHANCE YOU COULD BE ? NO . HEMATOLOGY/LYMPH: DO YOU TAKE ANY BLOOD THINNERS? (FOR EXAMPLE- COUMADIN, PLAVIX, AGGRENOX, PLATEL, PRADAXA, OR XARELTO) NO . WHEN WAS YOUR LAST DOSE? DATE: TIME: . NEUROLOGY: HAVE YOU FALLEN IN THE PAST 12 MONTHS? NO . ANY NEW EXTREMITY NUMBNESS OR WEAKNESS? NO . CARDIOLOGY: DO YOU HAVE A PACEMAKER OR DEFIBRILLATOR? NO . RESPIRATORY: HAVE YOU BEEN SICK IN THE PAST WEEK? NO . FEVER NO . FLU LIKE SYMPTOMS? NO . COUGH NO . INTEGUMENTARY: DO YOU HAVE ANY RASHES OR OPEN SORES? NO . ALLERGIC/IMMUNO: ARE YOU ALLERGIC TO IV DYE? NO . ANY NEW ALLERGIES? NO . PSYCHIATRIC: DO YOU HAVE THOUGHTS OF HURTING YOURSELF OR SOMEONE ELSE? NO . ARE YOU ABUSED, NEGLECTED, OR IN AN UNSAFE ENVIRONMENT? NO . ENDOCRINOLOGY: ARE YOU DIABETIC? NO . OTHER: DO YOU NEED ANY PRESCRIPTIONS? YES . IF YES, PLEASE LIST: HYDROCODONE . ANY NEW PROBLEMS WITH YOUR MEDICATIONS? NO . WHEN DID YOU LAST EAT? ____ . WHEN DID YOU LAST DRINK? ____ . WHAT DID YOU LAST DRINK? ____ . NAME OF PERSON DRIVING YOU HOME? ____ . DO YOU HAVE ANY OTHER QUESTIONS OR CONCERNS NO . VITAL SIGNS WT 214.8 LBS, HT 71", BMI 29.96 INDEX, BP 131/87 MM HG, HR 74 /MIN, RR 18 /MIN, TEMP 98.4 F, OXYGEN SAT % 97%, NA INITIALS AW 0951, REVIEWED BY: LS. EXAMINATION GENERAL EXAMINATION: GENERALAWAKE,ALERT ,PLEAASANT . PSYCHAFFECT NORMAL . LUNGS:LUNG ZACARIAS ARE CLEAR TO AUSCULTATION BILATERALLY. GOOD MOVEMENT OF AIR . HEART:S1, S2 IN A REGULAR RATE AND RHYTHM. NO SIGNIFICANT MURMURS, RUBS OR GALLOPS NOTED . ASSESSMENTS LUMBAR RADICULOPATHY - M54.16 (PRIMARY) TREATMENT LUMBAR RADICULOPATHY CONTINUE COLACE CAPSULE, 100 MG, 1 CAPSULE, ORALLY, BID NEEDED FOR CONSTIPATION MDD2 CONTINUE GABAPENTIN CAPSULE, 300 MG, 1 CAPSULE, ORALLY, BID MDD2, NOTES: HAS NOT BEEN TAKING STATES HE DOES NOT HAVE IT REFILL NORCO TABLET, 7.5-325 MG, 1 TABLET, ORALLY, EVERY 4 HRS PRN PAIN MDD=6, 30 DAY(S), 180, REFILLS 0 NOTES: ISTOP REGISTRY REVIEWED AND DEMONSTRATES COMPLLIANCE. BRINGS IN MEDICATIONS WHICH IS APPROPRIATE FOR WHAT WAS DISPENSED. RECENT URINE TOXICOLOGY REVIEWED. NO UNAUTHORIZED MEDICATIONS. NO ILLICIT SUBSTANCES AND PRESCRIBED MEDICATIONS WERE PRESENT. URINE TOXICOLOGY TODAY, RISKS OF NARCOTIC/OPIOD MEDICATIONS INCLUDES BUT IS NOT LIMITED TO RISK OF DEPENDANCE/DEVELOPMENT OF ADDICTION, MOOD DISTURBANCE AND DEPRESSION, OSTEOPOROSIS, HORMONAL AND LABIDAL CHANGES, RESPIRATORY DEPRESSION AND . PATIENT IS ADVISED NOT TO DRIVE OR DRINK ALCOHOL WHILE ON THESE MEDICATIONS, [facility] NARCOTIC AGREEMENT WAS UPDATED/ REVIEWED AND SIGNED TODAY BY THE PATIENT. SEE ATTACHED DOCUMENT FOR FULL DETAILS; SPECIFIC ISSUES WERE REVIEWED: 1) KEEP PAIN MEDS IN THEIR ORIGINAL BOTTLES AND ANY WEEKLY PLANNERS ARE TO BE BROUGHT TO THE PAIN CENTER AT EVERY VISIT. 2) THE PATIENT IS NOT TO INCREASE DOSING OR TIMING OF THEIR PAIN MEDICATION WITHOUT SPECIFIC DIRECTION OF THEIR PAIN CENTERPROVIDER (NOT ER OR OTHER PROVIDERS). 3) ALL PAIN MEDS ARE TO BE KEPT SECURED, IN A LOCKED BOX. 4) NO PAIN MEDS ARE TO BE SHARED WITH ANY OTHER PERSON FOR ANY REASON. 5) NO PAIN MEDS MAY BE TAKEN FROM ANY FRIENDS OR RELATIVES FOR ANY REASON 6) NO MEDS OR SUBSTANCES WHICH ARE NOT LEGAL ARE TO BE USED- NO MARIJUANA, NO COCAINE, AMPHETAMINES, HEROIN, OR OTHERS ARE EVER TO BE USED. 7)URINE TESTING IS DONE TO ACCOUNT FOR MEDS AND SUBSTANCES BEING TAKEN AND WILL BE DONE RANDOMLY. UPDATED. PROCEDURES PN WORKMANS' COMP OPINION IN YOUR OPINION, WAS THE INCIDENT THAT THE PATIENT DESCRIBED THE COMPETENT MEDICAL CAUSE OF THIS INJURY/ILLNESS? YES ARE THE PATIENT'S COMPLAINTS CONSISTENT WITH HIS/HER HISTORY OF THE INJURY/ILLNESS? YES IS THE PATIENT'S HISTORY OF THE INJURY/ILLNESS CONSISTENT WITH YOUR OBJECTIVE FINDING? YES WHAT IS THE PERCENTAGE OF TEMPORARY IMPAIRMENT? MODERATE TO MARKED = 66.7% IS THE PATIENT WORKING? NO DOCTOR ON SITE: IMANI NGUYEN MD PROCEDURE CODES FA211 ESTABILISHED PATIENT [facility] CHARGE DISPOSITION & COMMUNICATION FOLLOW UP 3 MONTHS (REASON: W/C MED MANAGEMENT) ELECTRONICALLY SIGNED BY ALETA MACIEL ON 04/28/2019 AT 04:18 PM EST DISCLAIMER : THIS IS A VISIT SUMMARY EXTRACTED FROM THE [employer] CHART. IT IS NOT A COPY OF THE [employer] PROGRESS NOTE. ODELLD
== END ==
LOC: M PAIN 09:30
PROVIDERS: ATTEND Nurse Practitioner Family
DX: M54.16 Radiculopathy, lumbar region (principal); I10 Essential (primary) hypertension; Z87.891 Personal history of nicotine dependence; Z88.5 Allergy status to narcotic agent; Z79.891 Long term (current) use of opiate analgesic; Z79.899 Other long term (current) drug therapy

== ENCOUNTER → 2019-07-14 | Outpatient (CLI) | payer OTHER ==
--- NOTE | 2019-07-16 00:20 | ECWPNPC ---
PATIENT NAME: ISAIAH LAWTON : 1955 GENDER: MALE VISIT DATE: 07/14/2019 DISCHARGE DATE: 07/14/19 1330 VISIT LOCKED DATE TIME: PHYSICIAN: TEDDY YUN RESOURCE: TEDDY YUN REASON FOR APPOINTMENT 1. W/C BACK HISTORY OF PRESENT ILLNESS HISTORY OF PRESENT ILLNESS: SLOAN HAS AGREED TO A TELEPHONE VISIT TODAY. CONTINUES WITH COMPLAINTS OF LOW BACK PAIN WITH RADIATION INTO LEFT LEG. PAIN HAS INCREASED OVER THE PAST MONTH. HAS BEEN UNDER A LOT OF STRESS WITH RECENT LOSS OF HIS MOTHER. RATING PAIN LEVEL AN 8/10. FINDS CURRENT MEDICATIONS HELPFUL AT REDUCING PAIN. HE WOULD LIKE TO DISCUSS DOING PROCEDURES AGAIN IN THE FUTURE. HE HAS HAD A HOSPITALIZATION AFTER A PROCEDURE. HE WOULD LIKE TO AVOID THAT PARTICULAR INJECTION. HE MAY BE A CANDIDATE TO REPEAT RADIOFREQUENCY. PAIN THE PATIENT DESCRIBES THE PAIN... FALL RISK SCREENING: SCREENING :NO FALLS REPORTED IN THE LAST YEAR CURRENT MEDICATIONS TAKING OMEPRAZOLE 20 MG CAPSULE DELAYED RELEASE 1 CAPSULE ORALLY ONCE A DAY TAKING LOSARTAN POTASSIUM 50 MG TABLET 1 TABLET ORALLY ONCE A DAY TAKING LEVOCETIRIZINE DIHYDROCHLORIDE 5 MG TABLET 1 TABLET IN THE EVENING ORALLY ONCE A DAY TAKING FENOFIBRATE MICRONIZED 134 MG CAPSULE 1 CAPSULE WITH A MEAL ORALLY ONCE A DAY TAKING VENTOLIN HFA 108 (90 BASE) MCG/ACT AEROSOL SOLUTION 2 PUFFS NEEDED INHALATION EVERY 6 HRS TAKING ONE DAILY COMPLETE FOR MEN - TABLET 1 TABLET ORALLY DAILY TAKING METFORMIN HCL 1000 MG TABLET 1 TABLET WITH A MEAL ORALLY ONCE A DAY TAKING ATORVASTATIN CALCIUM 20 MG TABLET 1 TABLET ORALLY ONCE A DAY TAKING COLACE 100 MG CAPSULE 1 CAPSULE ORALLY BID NEEDED FOR CONSTIPATION MDD2 TAKING HYDROCODONE-ACETAMINOPHEN 7.5-325 MG TABLET 1 TABLET NEEDED ORALLY Q4-6H PRN PAIN MDD6 TAKING NORCO 7.5-325 MG TABLET 1 TABLET ORALLY EVERY 4 HRS PRN PAIN MDD=6 TAKING GABAPENTIN 300 MG CAPSULE 1 CAPSULE ORALLY BID MDD2, NOTES: HAS NOT BEEN TAKING STATES HE DOES NOT HAVE IT TAKING HYDROCODONE-ACETAMINOPHEN 7.5-325 MG TABLET 1 TABLET NEEDED ORALLY Q4-6H PRN MDD6 TAKING TRAZODONE HCL 100 MG TABLET 1 TABLET AT BEDTIME ORALLY ONCE A DAY TAKING BUPROPION HCL ER (XL) 150 MG TABLET EXTENDED RELEASE 24 HOUR 1 TABLET IN THE MORNING ORALLY ONCE A DAY NOT-TAKING AMOXICILLIN-POT CLAVULANATE 875-125 MG TABLET 1 TABLET ORALLY EVERY 12 HRS NOT-TAKING AMITRIPTYLINE HCL 50 MG TABLET 1 TABLET ORALLY ONCE A DAY MEDICATION LIST REVIEWED AND RECONCILED WITH THE PATIENT PAST MEDICAL HISTORY LOW BACK PAIN KIDNEY STONES 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 DAD-CHF, OVER WEIGHT\N1 SON AFTER 4 TRUJILLO ACCIDENT. SOCIAL HISTORY GENERAL: TOBACCO USE ARE YOU A:FORMER SMOKER HOW LONG HAS IT BEEN SINCE YOU LAST SMOKED?1-5 YEARS LATEX QUESTIONNAIRE LATEX ALLERGY : HAVE YOU EVER DEVELOPED ANY TYPE OF REACTION AFTER HANDLING LATEX PRODUCTS SUCH RUBBER GLOVES, CONDOMS, DIAPHRAGMS, BALLOONS, SOCKS, OR UNDERWEAR?NO LATEX ALLERGY : HAVE YOU EVER DEVELOPED ANY TYPE OF REACTION DURING OR AFTER DENTAL APPOINTMENT, VAGINAL/RECTAL EXAMINATION, SURGICAL PROCEDURE, OR ANY OTHER EXPOSURE?NO DATE ASKED : 07/28/2018 LATEX RISK : HAVE YOU EVER HAD ANY DIFFICULTY BREATHING OR HIVES AFTER EATING OR HANDLING ANY FRUITS, OR VEGETABLES; SUCH KIWI, BANANAS, STONE FRUITS, OR CHESTNUTSNO LATEX RISK : DO YOU HAVE A PREVIOUS PERSONAL HISTORY OF MORE THAN NINE SURGERIES, SPINA BIFIDA, OR REPEATED CATHERIZATIONS? NO LATEX RISK : ARE YOU FREQUENTLY EXPOSED TO LATEX PRODUCTS IN YOUR OCCUPATION?NO ALCOHOL SCREENING DID YOU HAVE A DRINK CONTAINING ALCOHOL IN THE PAST YEAR?NO POINTS0 INTERPRETATIONNEGATIVE RECREATIONAL DRUG USE DRUG USE?NO CAFFEINE CAFFEINE USE?YES HOW OFTEN AND HOW MUCH? 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 N/A HAS THE PATIENT BEEN EDUCATED REGARDING HIS/HER PLAN OF CARE?YES HAS THE PATIENT BEEN EDUCATED REGARDING PAIN, THE RISK FOR PAIN, THE IMPORTANCE OF EFFECTIVE PAIN MANAGEMENT, AND THE PAIN ASSESSMENT PROCESS?YES ADVANCE DIRECTIVE ADVANCE DIRECTIVE DISCUSSED WITH PATIENT:YES PATIENT DECLINED HCP INFORMATION. HOSPITALIZATION/MAJOR DIAGNOSTIC PROCEDURE SURGERIES LEFT LEG WEAKNESS AFTER PROCEDURE REVIEW OF SYSTEMS REVIEWED BY: PROVIDER: T[place] . CONSTITUTIONAL: ANY CHANGE IN YOUR MEDICAL CONDITION? NO . CHILLS NO . FEVER NO . INFECTION: DO YOU HAVE NEW INFECTIONS? NO . DO YOU HAVE HISTORY OF MRSA? NO . MUSCULOSKELETAL: ANY NEW PATTERNS OF PAIN OR NUMBNESS? NO . GASTROENTEROLOGY: ANY NEW CHANGE IN BOWEL CONTROL? NO . GENITOURINARY: ANY NEW CHANGE IN BLADDER CONTROL? NO . IS THERE A CHANCE YOU COULD BE ? NO . HEMATOLOGY/LYMPH: DO YOU TAKE ANY BLOOD THINNERS? (FOR EXAMPLE- COUMADIN, PLAVIX, AGGRENOX, PLATEL, PRADAXA, OR XARELTO) NO . WHEN WAS YOUR LAST DOSE? DATE: TIME: . NEUROLOGY: HAVE YOU FALLEN IN THE PAST 12 MONTHS? NO . ANY NEW EXTREMITY NUMBNESS OR WEAKNESS? NO . CARDIOLOGY: DO YOU HAVE A PACEMAKER OR DEFIBRILLATOR? NO . RESPIRATORY: HAVE YOU BEEN SICK IN THE PAST WEEK? NO . FEVER NO . FLU LIKE SYMPTOMS? NO . COUGH NO . INTEGUMENTARY: DO YOU HAVE ANY RASHES OR OPEN SORES? NO . ALLERGIC/IMMUNO: ARE YOU ALLERGIC TO IV DYE? NO . ANY NEW ALLERGIES? NO . PSYCHIATRIC: DO YOU HAVE THOUGHTS OF HURTING YOURSELF OR SOMEONE ELSE? NO . ARE YOU ABUSED, NEGLECTED, OR IN AN UNSAFE ENVIRONMENT? NO . ENDOCRINOLOGY: ARE YOU DIABETIC? NO . OTHER: DO YOU NEED ANY PRESCRIPTIONS? YES . IF YES, PLEASE LIST: ____NORCO . ANY NEW PROBLEMS WITH YOUR MEDICATIONS? NO . WHEN DID YOU LAST EAT? ____ . WHEN DID YOU LAST DRINK? ____ . WHAT DID YOU LAST DRINK? ____ . NAME OF PERSON DRIVING YOU HOME? ____ . DO YOU HAVE ANY OTHER QUESTIONS OR CONCERNS NO . ASSESSMENTS LUMBAR RADICULOPATHY - M54.16 TREATMENT LUMBAR RADICULOPATHY REFILL NORCO TABLET, 7.5-325 MG, 1 TABLET, ORALLY, EVERY 4 HRS PRN PAIN MDD=6, 30 DAY(S), 180, REFILLS 0 NOTES: ISTOP REGISTRY REVIEWED AND DEMONSTRATES COMPLLIANCE. RECENT URINE TOXICOLOGY REVIEWED. NO UNAUTHORIZED MEDICATIONS. NO ILLICIT SUBSTANCES AND PRESCRIBED MEDICATIONS WERE PRESENT. DISCUSSED TRYING INJECTION THERAPY AGAIN WHICH PATIENT IS RECEPTIVE TO. HE IS A LITTLE LEERY REGARDING SACROILIAC JOINT BLOCK HE ENDED UP IN THE HOSPITAL AFTER HIS LAST SACROILIAC JOINT INJECTION. FOLLOW-UP IS SCHEDULED IN 2 MONTHS. OVERALL TIME SPENT DURING TELEPHONE VISIT WAS APPROXIMATELY 11 MINUTES. OTHERS NOTES: NO VITAL SIGNS TAKEN, THIS IS A PHONE/VIRTUAL VISIT. PROCEDURES PN WORKMANS' COMP OPINION IN YOUR OPINION, WAS THE INCIDENT THAT THE PATIENT DESCRIBED THE COMPETENT MEDICAL CAUSE OF THIS INJURY/ILLNESS? YES ARE THE PATIENT'S COMPLAINTS CONSISTENT WITH HIS/HER HISTORY OF THE INJURY/ILLNESS? YES IS THE PATIENT'S HISTORY OF THE INJURY/ILLNESS CONSISTENT WITH YOUR OBJECTIVE FINDING? YES WHAT IS THE PERCENTAGE OF TEMPORARY IMPAIRMENT? MODERATE TO MARKED = 66.7% IS THE PATIENT WORKING? NO DOCTOR ON SITE: IMANI NGUYEN MD DISPOSITION & COMMUNICATION FOLLOW UP 2 MONTHS (REASON: MED MGMNT/DISCUSS PROCEDURES) ELECTRONICALLY SIGNED BY ALETA MACIEL ON 07/15/2019 AT 09:38 AM EDT DISCLAIMER : THIS IS A VISIT SUMMARY EXTRACTED FROM THE [employer] CHART. IT IS NOT A COPY OF THE [employer] PROGRESS NOTE. ANGELO
== END ==
LOC: M PAIN 11:45
PROVIDERS: ATTEND Nurse Practitioner Family
DX: M54.16 Radiculopathy, lumbar region (principal); I10 Essential (primary) hypertension; Z79.891 Long term (current) use of opiate analgesic; Z79.899 Other long term (current) drug therapy; Z88.5 Allergy status to narcotic agent; Z87.891 Personal history of nicotine dependence

== ENCOUNTER → 2019-09-15 | Outpatient (CLI) | payer OTHER ==
--- NOTE | 2019-09-19 03:20 | ECWPNPC ---
PATIENT NAME: ISAIAH LAWTON : 1955 GENDER: MALE VISIT DATE: 09/15/2019 DISCHARGE DATE: 09/15/19 1229 VISIT LOCKED DATE TIME: PHYSICIAN: TEDDY YUN RESOURCE: TEDDY YUN REASON FOR APPOINTMENT 1. W/C-MED MGMT-DISCUSS PROCEDURES 2. [phone] HISTORY OF PRESENT ILLNESS GENERAL: -. FALL RISK SCREENING: SCREENING :NO FALLS REPORTED IN THE LAST YEAR PAIN SCREENING: PATIENT HAS A COMPLAINT OF ACUTE OR CHRONIC PAIN :YES LOCATION OF PAIN:LOW BACK LEFT LOW BACK INTENSITY OF PAIN (SCALE OF 1 TO 10):6 WHAT DOES YOUR PAIN FEEL LIKE:ACHING, BURNING, CONTINOUS, SHARP, SHOOTING NURSING NOTE: -. PAIN CENTER INTAKE QUESTIONS: DO YOU HAVE A HISTORY OF MRSA? :NO DO YOU TAKE A BLOOD THINNERS? :NO DO YOU HAVE ANY BLEEDING DISORDERS? :NO ANY NEW NUMBNESS OR WEAKNESS IN YOUR LEGS OR ARMS? :NO ANY PACEMAKER,DEFIBRILLATOR, OR DORSAL COLUMN STIMULATOR? :NO DO YOU HAVE ANY RASHES OR OPEN SORES? :NO ARE YOU ALLERGIC TO IV DYE? :NO ARE YOU DIABETIC? :NO ANY NEW PROBLEMS WITH YOUR MEDICATIONS? :NO HAVE YOU RECEIVED A VACCINE IN THE PAST 30 DAYS? :NO DO YOU PLAN TO RECEIVE A VACCINE IN THE NEXT 21 DAYS? :NO DO YOU NEED ANY PRESCRIPTION? :YES HYDROCODONE, GABAPENTIN DO YOU TAKE ANY IMMUNOSUPPRESSIVE MEDICATIONS? :NO IS THERE A CHANCE YOU COULD BE ? :NO ARE YOU BREAST FEEDING? :NO HISTORY OF PRESENT ILLNESS: HERE FOR FOLLOW-UP OF CHRONIC LOW BACK PAIN. HISTORY OF POSTLAMINECTOMY PAIN SYNDROME. CONTINUES WITH COMPLAINTS OF LOW BACK PAIN WITH RADIATION INTO LEFT LEG. PAIN HAS INCREASED OVER THE PAST MONTH. HAS BEEN UNDER A LOT OF STRESS WITH RECENT LOSS OF HIS MOTHER. RATING PAIN LEVEL AN 8/10. FINDS CURRENT MEDICATIONS HELPFUL AT REDUCING PAIN. HE WOULD LIKE TO DISCUSS DOING PROCEDURES AGAIN IN THE FUTURE. HE HAS HAD A HOSPITALIZATION AFTER A PROCEDURE. HE WOULD LIKE TO AVOID THAT PARTICULAR INJECTION. HE MAY BE A CANDIDATE TO REPEAT RADIOFREQUENCY. PAIN THE PATIENT DESCRIBES THE PAIN... CURRENT MEDICATIONS TAKING OMEPRAZOLE 20 MG CAPSULE DELAYED RELEASE 1 CAPSULE ORALLY ONCE A DAY TAKING LOSARTAN POTASSIUM 50 MG TABLET 1 TABLET ORALLY ONCE A DAY TAKING LEVOCETIRIZINE DIHYDROCHLORIDE 5 MG TABLET 1 TABLET IN THE EVENING ORALLY ONCE A DAY TAKING FENOFIBRATE MICRONIZED 134 MG CAPSULE 1 CAPSULE WITH A MEAL ORALLY ONCE A DAY TAKING VENTOLIN HFA 108 (90 BASE) MCG/ACT AEROSOL SOLUTION 2 PUFFS NEEDED INHALATION EVERY 6 HRS TAKING ONE DAILY COMPLETE FOR MEN - TABLET 1 TABLET ORALLY DAILY TAKING METFORMIN HCL 1000 MG TABLET 1 TABLET WITH A MEAL ORALLY ONCE A DAY TAKING ATORVASTATIN CALCIUM 20 MG TABLET 1 TABLET ORALLY ONCE A DAY TAKING COLACE 100 MG CAPSULE 1 CAPSULE ORALLY BID NEEDED FOR CONSTIPATION MDD2 TAKING GABAPENTIN 300 MG CAPSULE 1 CAPSULE ORALLY BID MDD2, NOTES: HAS NOT BEEN TAKING STATES HE DOES NOT HAVE IT TAKING TRAZODONE HCL 100 MG TABLET 1 TABLET AT BEDTIME ORALLY ONCE A DAY TAKING BUPROPION HCL ER (XL) 150 MG TABLET EXTENDED RELEASE 24 HOUR 1 TABLET IN THE MORNING ORALLY ONCE A DAY TAKING HYDROCODONE-ACETAMINOPHEN 7.5-325 MG TABLET 1 TABLET NEEDED ORALLY Q4-6H PRN PAIN MDD6 NOT-TAKING HYDROCODONE-ACETAMINOPHEN 7.5-325 MG TABLET 1 TABLET NEEDED ORALLY Q4-6H PRN MDD6 NOT-TAKING NORCO 7.5-325 MG TABLET 1 TABLET ORALLY EVERY 4 HRS PRN PAIN MDD=6 NOT-TAKING AMOXICILLIN-POT CLAVULANATE 875-125 MG TABLET 1 TABLET ORALLY EVERY 12 HRS NOT-TAKING AMITRIPTYLINE HCL 50 MG TABLET 1 TABLET ORALLY ONCE A DAY MEDICATION LIST REVIEWED AND RECONCILED WITH THE PATIENT PAST MEDICAL HISTORY LOW BACK PAIN KIDNEY STONES 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 DAD-CHF, OVER WEIGHT\\N1 SON AFTER 4 TRUJILLO ACCIDENT. SOCIAL HISTORY GENERAL: TOBACCO USE ARE YOU A:FORMER SMOKER HOW LONG HAS IT BEEN SINCE YOU LAST SMOKED?1-5 YEARS LATEX QUESTIONNAIRE LATEX ALLERGY : HAVE YOU EVER DEVELOPED ANY TYPE OF REACTION AFTER HANDLING LATEX PRODUCTS SUCH RUBBER GLOVES, CONDOMS, DIAPHRAGMS, BALLOONS, SOCKS, OR UNDERWEAR?NO LATEX ALLERGY : HAVE YOU EVER DEVELOPED ANY TYPE OF REACTION DURING OR AFTER DENTAL APPOINTMENT, VAGINAL/RECTAL EXAMINATION, SURGICAL PROCEDURE, OR ANY OTHER EXPOSURE?NO LATEX RISK : HAVE YOU EVER HAD ANY DIFFICULTY BREATHING OR HIVES AFTER EATING OR HANDLING ANY FRUITS, OR VEGETABLES; SUCH KIWI, BANANAS, STONE FRUITS, OR CHESTNUTSNO LATEX RISK : DO YOU HAVE A PREVIOUS PERSONAL HISTORY OF MORE THAN NINE SURGERIES, SPINA BIFIDA, OR REPEATED CATHERIZATIONS? NO LATEX RISK : ARE YOU FREQUENTLY EXPOSED TO LATEX PRODUCTS IN YOUR OCCUPATION?NO DATE ASKED : 09/15/2019 ALCOHOL SCREENING DID YOU HAVE A DRINK CONTAINING ALCOHOL IN THE PAST YEAR?NO POINTS0 INTERPRETATIONNEGATIVE RECREATIONAL DRUG USE DRUG USE?NO CAFFEINE CAFFEINE USE?YES HOW OFTEN AND HOW MUCH? 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 N/A HAS THE PATIENT BEEN EDUCATED REGARDING HIS/HER PLAN OF CARE?YES HAS THE PATIENT BEEN EDUCATED REGARDING PAIN, THE RISK FOR PAIN, THE IMPORTANCE OF EFFECTIVE PAIN MANAGEMENT, AND THE PAIN ASSESSMENT PROCESS?YES ADVANCE DIRECTIVE ADVANCE DIRECTIVE DISCUSSED WITH PATIENT:YES PATIENT DECLINED HCP INFORMATION. HOSPITALIZATION/MAJOR DIAGNOSTIC PROCEDURE SURGERIES LEFT LEG WEAKNESS AFTER PROCEDURE REVIEW OF SYSTEMS CONSTITUTIONAL: ANY RECENT FEVER NO . CHILLS NO . WEIGHT CHANGE OF UNKNOWN REASONS NO . GASTROENTEROLOGY: NEW UNEXPLAINABLE CHANGES IN BOWEL CONTROL NO . CONSTIPATION NO . GENITOURINARY: ANY NEW CHANGE IN BLADDER CONTROL? NO . NEUROLOGY: NEW ONSET DIZZINESS OR NEUROLOGICAL CHANGES NOT MENTIONED NO . NEW NUMBNESS OR PAIN PATTERNS NOT MENTIONED AND PERTINENT TO TODAY'S VISIT NO . CARDIOLOGY: NEW CHEST PRESSURE NO . NEW CHEST PAIN NO . RESPIRATORY: UNEXPLAINABLE COUGH NO . NEW SHORTNESS OF BREATH NO . VITAL SIGNS WT 214.6 LBS, HT 71", BMI 29.93 INDEX, BP 145/85 MM HG, HR 87 /MIN, RR 18 /MIN, TEMP 97.9 F, OXYGEN SAT % 99%, SAFE IN ENV? (Y/N) Y, NA INITIALS DC 11:48, REVIEWED BY: DANUTA. EXAMINATION GENERAL EXAMINATION: LUNGS:LUNG SOUNDS ARE CLEAR. HEART:HEART RATE REGULAR. MUSCULOSKELETAL:*, MUSCLE STRENGTH TESTING 5/5 RIGHT AND 3/5 LEFT.MUSCLE STRENGTH TESTING OVER LEFT LEG AGGREVATES PAIN. POSITIVE AMY TEST OVER LEFT LEG.SPECIFIC POINT TENDERNESS OVER L SIJ. PALPATION: + FOR PAIN OVER L/S SPINE. + FOR PAIN OVER LEFT L/S PARSPINALS.WELL HEALED SURGICAL SCAR L/S AXIS. DIAGNOSTIC: . ASSESSMENTS LUMBAR RADICULOPATHY - M54.16 (PRIMARY) CHRONIC PRESCRIPTION OPIATE USE - Z79.891 POST LAMINECTOMY SYNDROME - M96.1 TREATMENT LUMBAR RADICULOPATHY REFILL HYDROCODONE-ACETAMINOPHEN TABLET, 7.5-325 MG, 1 TABLET NEEDED, ORALLY, Q4-6H PRN PAIN MDD6, 30 DAYS, 180, REFILLS 0 NOTES: DISCUSSED TREATMENT OPTIONS TO INCLUDE DORSAL COLUMN STIM TRIAL. WE HAVE GIVEN HIM INFORMATION ON THIS TECHNOLOGY TODAY. I WILL HAVE HIM RETURN TO CLINIC TO DISCUSS PROCEDURES WITH DR. MAYO. , ISTOP REGISTRY REVIEWED AND DEMONSTRATES COMPLLIANCE. (REF # ) BRINGS IN MEDICATIONS WHICH IS APPROPRIATE FOR WHAT WAS DISPENSED. RECENT URINE TOXICOLOGY REVIEWED. NO UNAUTHORIZED MEDICATIONS. NO ILLICIT SUBSTANCES AND PRESCRIBED MEDICATIONS WERE PRESENT. URINE TOX TODAY , RISKS OF NARCOTIC/OPIOD MEDICATIONS INCLUDES BUT IS NOT LIMITED TO RISK OF DEPENDANCE/DEVELOPMENT OF ADDICTION, MOOD DISTURBANCE AND DEPRESSION, OSTEOPOROSIS, HORMONAL AND LABIDAL CHANGES, RESPIRATORY DEPRESSION AND . PATIENT IS ADVISED NOT TO DRIVE OR DRINK ALCOHOL WHILE ON THESE MEDICATIONS. PROCEDURES PN WORKMANS' COMP OPINION IN YOUR OPINION, WAS THE INCIDENT THAT THE PATIENT DESCRIBED THE COMPETENT MEDICAL CAUSE OF THIS INJURY/ILLNESS? YES ARE THE PATIENT'S COMPLAINTS CONSISTENT WITH HIS/HER HISTORY OF THE INJURY/ILLNESS? YES IS THE PATIENT'S HISTORY OF THE INJURY/ILLNESS CONSISTENT WITH YOUR OBJECTIVE FINDING? YES WHAT IS THE PERCENTAGE OF TEMPORARY IMPAIRMENT? MODERATE TO MARKED = 66.7% IS THE PATIENT WORKING? NO DOCTOR ON SITE: IMANI NGUYEN MD PREVENTIVE MEDICINE PAIN CLINIC TEACHING: THE PATIENT HAS BEEN EDUCATED REGARDING PAIN, THE RISK FOR PAIN, THE IMPORTANCE OF EFFECTIVE PAIN MANAGEMENT, AND THE PAIN ASSESSMENT PROCESS. : REVIEWED VERBAL DISCHARGE INSTRUCTIONS WITH PATIENT, REVIEWED WRITTEN AND VERBAL INFORMNATION REGARDING DORSAL COLUMN STIMULATOR, PT ACKNOWLEDGED UNDERSTANDING,. DS PROCEDURE CODES [id number] ESTABILISHED PATIENT [facility] CHARGE DISPOSITION & COMMUNICATION FOLLOW UP 4-[address] MAYO (REASON: EVALUATE FOR DORSAL COLUMN STIM TRIAL VERSUS OTHER PROCEDURES.) ELECTRONICALLY SIGNED BY ALETA MACIEL ON 09/18/2019 AT 09:29 AM EDT DISCLAIMER : THIS IS A VISIT SUMMARY EXTRACTED FROM THE [employer] CHART. IT IS NOT A COPY OF THE [employer] PROGRESS NOTE. ANGELO
== END ==
LOC: M PAIN 11:00
PROVIDERS: ATTEND Nurse Practitioner Family
DX: M54.16 Radiculopathy, lumbar region (principal); Z79.891 Long term (current) use of opiate analgesic; M96.1 Postlaminectomy syndrome, not elsewhere classified

== ENCOUNTER → 2020-01-08 | Outpatient (CLI) | payer OTHER ==
--- NOTE | 2020-01-11 09:37 | ECWPNPC ---
PATIENT NAME: ISAIAH LAWTON : 1955 GENDER: MALE VISIT DATE: 01/08/2020 DISCHARGE DATE: 01/08/20 1214 VISIT LOCKED DATE TIME: PHYSICIAN: TEDDY YUN RESOURCE: TEDDY YUN REASON FOR APPOINTMENT 1. W/C BACK/REVIEW MRI HISTORY OF PRESENT ILLNESS DEPRESSION SCREENING: PHQ-2 (2015 EDITION) LITTLE INTEREST OR PLEASURE IN DOING THINGS?NOT AT ALL FEELING DOWN, DEPRESSED, OR HOPELESS?NOT AT ALL TOTAL SCORE0 GENERAL: -. FALL RISK SCREENING: SCREENING :NO FALLS REPORTED IN THE LAST YEAR NONE PAIN SCREENING: PATIENT HAS A COMPLAINT OF ACUTE OR CHRONIC PAIN :YES LOCATION OF PAIN:LOW BACK INTENSITY OF PAIN (SCALE OF 1 TO 10):9 WHAT DOES YOUR PAIN FEEL LIKE:ACHING, BURNING PAIN RUNS DOWN LEFT LEG HOT FEELING DURATION:CONTINOUS PAIN IS INCREASED BY:ACTIVITIES PAIN IS DECREASED BY:USE OF PAIN MEDICATIONS RELAXING NURSING NOTE: -. PAIN CENTER INTAKE QUESTIONS: DO YOU HAVE A HISTORY OF MRSA? :NO DO YOU TAKE A BLOOD THINNERS? :NO DO YOU HAVE ANY BLEEDING DISORDERS? :NO ANY NEW NUMBNESS OR WEAKNESS IN YOUR LEGS OR ARMS? :NO ANY PACEMAKER,DEFIBRILLATOR, OR DORSAL COLUMN STIMULATOR? :NO DO YOU HAVE ANY RASHES OR OPEN SORES? :NO ARE YOU ALLERGIC TO IV DYE? :NO ARE YOU DIABETIC? :NO ANY NEW PROBLEMS WITH YOUR MEDICATIONS? :NO HAVE YOU RECEIVED A VACCINE IN THE PAST 30 DAYS? :YES FLU VAC DO YOU PLAN TO RECEIVE A VACCINE IN THE NEXT 21 DAYS? :NO DO YOU NEED ANY PRESCRIPTION? :NO DO YOU TAKE ANY IMMUNOSUPPRESSIVE MEDICATIONS? :NO IS THERE A CHANCE YOU COULD BE ? :NO ARE YOU BREAST FEEDING? :NO HISTORY OF PRESENT ILLNESS: HERE FOR FOLLOW-UP OF CHRONIC LOW BACK PAIN. HISTORY OF POSTLAMINECTOMY PAIN SYNDROME. CONTINUES WITH COMPLAINTS OF LOW BACK PAIN WITH RADIATION INTO LEFT LEG. PAIN HAS INCREASED OVER THE PAST MONTH. HAS BEEN UNDER A LOT OF STRESS WITH RECENT LOSS OF HIS MOTHER. RATING PAIN LEVEL AN 8/10. FINDS CURRENT MEDICATIONS HELPFUL AT REDUCING PAIN. HE WOULD LIKE TO DISCUSS DOING PROCEDURES AGAIN IN THE FUTURE. HE HAS HAD A HOSPITALIZATION AFTER A PROCEDURE. HE WOULD LIKE TO AVOID THAT PARTICULAR INJECTION. HE MAY BE A CANDIDATE TO REPEAT RADIOFREQUENCY. PAIN THE PATIENT DESCRIBES THE PAIN... CURRENT MEDICATIONS TAKING OMEPRAZOLE 20 MG CAPSULE DELAYED RELEASE 1 CAPSULE ORALLY ONCE A DAY TAKING [place]ARTAN POTASSIUM 50 MG TABLET 1 TABLET ORALLY ONCE A DAY TAKING LEVOCETIRIZINE DIHYDROCHLORIDE 5 MG TABLET 1 TABLET IN THE EVENING ORALLY ONCE A DAY TAKING FENOFIBRATE MICRONIZED 134 MG CAPSULE 1 CAPSULE WITH A MEAL ORALLY ONCE A DAY TAKING VENTOLIN HFA 108 (90 BASE) MCG/ACT AEROSOL SOLUTION 2 PUFFS NEEDED INHALATION EVERY 6 HRS TAKING ONE DAILY COMPLETE FOR MEN - TABLET 1 TABLET ORALLY DAILY TAKING METFORMIN HCL 1000 MG TABLET 1 TABLET WITH A MEAL ORALLY ONCE A DAY TAKING ATORVASTATIN CALCIUM 20 MG TABLET 1 TABLET ORALLY ONCE A DAY TAKING COLACE 100 MG CAPSULE 1 CAPSULE ORALLY BID NEEDED FOR CONSTIPATION MDD2 TAKING TRAZODONE HCL 100 MG TABLET 1 TABLET AT BEDTIME ORALLY ONCE A DAY TAKING BUPROPION HCL ER (XL) 150 MG TABLET EXTENDED RELEASE 24 HOUR 1 TABLET IN THE MORNING ORALLY ONCE A DAY TAKING HYDROCODONE-ACETAMINOPHEN 7.5-325 MG TABLET 1 TABLET NEEDED ORALLY Q4-6H PRN PAIN MDD6 TAKING GABAPENTIN 300 MG CAPSULE 1 CAPSULE ORALLY BID MDD2, NOTES: HAS NOT BEEN TAKING STATES HE DOES NOT HAVE IT NOT-TAKING HYDROCODONE-ACETAMINOPHEN 7.5-325 MG TABLET 1 TABLET NEEDED ORALLY Q4-6H PRN MDD6 NOT-TAKING NORCO 7.5-325 MG TABLET 1 TABLET ORALLY EVERY 4 HRS PRN PAIN MDD=6 NOT-TAKING AMOXICILLIN-POT CLAVULANATE 875-125 MG TABLET 1 TABLET ORALLY EVERY 12 HRS NOT-TAKING AMITRIPTYLINE HCL 50 MG TABLET 1 TABLET ORALLY ONCE A DAY MEDICATION LIST REVIEWED AND RECONCILED WITH THE PATIENT PAST MEDICAL HISTORY LOW BACK PAIN KIDNEY STONES BLADDER CANCER LEFT LEG WEAKNESS AFTER PROCEDURE HTN PNEUMONIA ELEVATED CHOLESTEROL DEPRESSION ALLERGIES MORPHINE SULFATE: HEADACHE - SIDE EFFECTS SURGICAL HISTORY LUMBAR SURGURY 2000 BLADDER SURGERY OR 09/2015 RIGHT HAND SURGERY AFTER CHAINSAW INJURY 1965 OR 1966 FAMILY HISTORY FATHER: 77 YRS, DIAGNOSED WITH UNSPECIFIED HEART DISEASE, UNSPECIFIED CEREBRAL ARTERY OCCLUSION WITH CEREBRAL INFARCTION, HYPERTENSION MOTHER: 83 YRS, HEART DISEASE, DIABETES 1 SON(S) - HEALTHY. DAD-CHF, OVER WEIGHT\\N1 SON AFTER 4 TRUJILLO ACCIDENT. SOCIAL HISTORY GENERAL: TOBACCO USE ARE YOU A:FORMER SMOKER HOW LONG HAS IT BEEN SINCE YOU LAST SMOKED?1-5 YEARS LATEX QUESTIONNAIRE LATEX ALLERGY : HAVE YOU EVER DEVELOPED ANY TYPE OF REACTION AFTER HANDLING LATEX PRODUCTS SUCH RUBBER GLOVES, CONDOMS, DIAPHRAGMS, BALLOONS, SOCKS, OR UNDERWEAR?NO LATEX ALLERGY : HAVE YOU EVER DEVELOPED ANY TYPE OF REACTION DURING OR AFTER DENTAL APPOINTMENT, VAGINAL/RECTAL EXAMINATION, SURGICAL PROCEDURE, OR ANY OTHER EXPOSURE?NO LATEX RISK : HAVE YOU EVER HAD ANY DIFFICULTY BREATHING OR HIVES AFTER EATING OR HANDLING ANY FRUITS, OR VEGETABLES; SUCH KIWI, BANANAS, STONE FRUITS, OR CHESTNUTSNO LATEX RISK : DO YOU HAVE A PREVIOUS PERSONAL HISTORY OF MORE THAN NINE SURGERIES, SPINA BIFIDA, OR REPEATED CATHERIZATIONS? NO LATEX RISK : ARE YOU FREQUENTLY EXPOSED TO LATEX PRODUCTS IN YOUR OCCUPATION?NO DATE ASKED : 01/08/2020 ALCOHOL SCREENING DID YOU HAVE A DRINK CONTAINING ALCOHOL IN THE PAST YEAR?NO POINTS0 INTERPRETATIONNEGATIVE RECREATIONAL DRUG USE DRUG USE?NO CAFFEINE CAFFEINE USE?YES HOW OFTEN AND HOW MUCH? CUP OF COFFEE/DAY AMISH [id number] MANDAEN LANGUAGE LANGUAGES SPOKEN:FRISIAN LEARNING BARRIERS / SPECIAL NEEDS BARRIERS TO LEARNING?NO HEARING IMPAIRED?NO VISION IMPAIRED?YES COGNITIVELY IMPAIRED?NO :CORRECTIVE LENSES READINESS TO LEARN?YES LEARNING PREFERENCES?YES :BOOKLETS, HANDOUTS LEARNING CAPABILITIES PRESENT?YES EMOTIONAL BARRIERS?NO SPECIAL DEVICES?YES :CANE, WALKER SALES FORCE ADMINISTRATOR NEEDED?NO DOMESTIC VIOLENCE DO YOU FEEL SAFE IN YOUR ENVIRONMENT?YES PAIN CLINIC PFS, CLERGY, PUBLIC HEALTH REFERRALS PFS REFERRAL NEEDED?NO CLERGY REFERRAL NEEDED?NO PUBLIC HEALTH REFERRAL NEEDED?NO WAS THE PROVIDER NOTIFIED OF ANY PERTINENT INFO? N/A HAS THE PATIENT BEEN EDUCATED REGARDING HIS/HER PLAN OF CARE?YES HAS THE PATIENT BEEN EDUCATED REGARDING PAIN, THE RISK FOR PAIN, THE IMPORTANCE OF EFFECTIVE PAIN MANAGEMENT, AND THE PAIN ASSESSMENT PROCESS?YES ADVANCE DIRECTIVE ADVANCE DIRECTIVE DISCUSSED WITH PATIENT:YES PATIENT DECLINED HCP INFORMATION. HOSPITALIZATION/MAJOR DIAGNOSTIC PROCEDURE SURGERIES LEFT LEG WEAKNESS AFTER PROCEDURE REVIEW OF SYSTEMS CONSTITUTIONAL: ANY RECENT FEVER NO . CHILLS NO . WEIGHT CHANGE OF UNKNOWN REASONS NO . GASTROENTEROLOGY: NEW UNEXPLAINABLE CHANGES IN BOWEL CONTROL NO . CONSTIPATION NO . GENITOURINARY: ANY NEW CHANGE IN BLADDER CONTROL? NO . NEUROLOGY: NEW ONSET DIZZINESS OR NEUROLOGICAL CHANGES NOT MENTIONED NO . NEW NUMBNESS OR PAIN PATTERNS NOT MENTIONED AND PERTINENT TO TODAY'S VISIT NO . CARDIOLOGY: NEW CHEST PRESSURE NO . NEW CHEST PAIN NO . RESPIRATORY: UNEXPLAINABLE COUGH NO . NEW SHORTNESS OF BREATH NO . VITAL SIGNS WT 226.0 LBS, HT 71", BMI 31.52 INDEX, BP 149/78 MM HG, HR 81 /MIN, RR 18 /MIN, TEMP 98.3 F, OXYGEN SAT % 98%, SAFE IN ENV? (Y/N) YES, NA INITIALS [id number], REVIEWED BY: JS. EXAMINATION GENERAL EXAMINATION: LUNGS:LUNG SOUNDS ARE CLEAR. HEART:HEART RATE REGULAR. MUSCULOSKELETAL:*, MUSCLE STRENGTH TESTING 5/5 RIGHT AND 3/5 LEFT.MUSCLE STRENGTH TESTING OVER LEFT LEG AGGREVATES PAIN. POSITIVE AMY TEST OVER LEFT LEG.SPECIFIC POINT TENDERNESS OVER L SIJ. PALPATION: + FOR PAIN OVER L/S SPINE. + FOR PAIN OVER LEFT L/S PARSPINALS.WELL HEALED SURGICAL SCAR L/S AXIS. DIAGNOSTIC: . ASSESSMENTS LUMBAR RADICULOPATHY - M54.16 (PRIMARY) CHRONIC PRESCRIPTION OPIATE USE - Z79.891 POST LAMINECTOMY SYNDROME - M96.1 TREATMENT LUMBAR RADICULOPATHY CONTINUE HYDROCODONE-ACETAMINOPHEN TABLET, 7.5-325 MG, 1 TABLET NEEDED, ORALLY, Q4-6H PRN PAIN MDD6 INCREASE GABAPENTIN CAPSULE, 300 MG, 1 CAPSULE, ORALLY, THREE TIMES DAILY, 30 DAYS, 90, REFILLS 5, NOTES: HAS NOT BEEN TAKING STATES HE DOES NOT HAVE IT NOTES: PATIENT WILL REQUEST CLEARANCE FROM JAMES CEE NP-PRIMARY CARE IN REGARDS TO KIDNEY FUNCTION. CONTINUE FOLLOW-UP WITH DR. SCHULTE AT [facility]. INCREASE GABAPENTIN 300 MG TO 1 CAPSULE 3 TIMES A DAY FOR INCREASE IN PAIN OVER THE PAST 3 MONTHS. PROCEDURES PN WORKMANS' COMP OPINION IN YOUR OPINION, WAS THE INCIDENT THAT THE PATIENT DESCRIBED THE COMPETENT MEDICAL CAUSE OF THIS INJURY/ILLNESS? YES ARE THE PATIENT'S COMPLAINTS CONSISTENT WITH HIS/HER HISTORY OF THE INJURY/ILLNESS? YES IS THE PATIENT'S HISTORY OF THE INJURY/ILLNESS CONSISTENT WITH YOUR OBJECTIVE FINDING? YES WHAT IS THE PERCENTAGE OF TEMPORARY IMPAIRMENT? MODERATE TO MARKED = 66.7% IS THE PATIENT WORKING? NO DOCTOR ON SITE: IMANI NGUYEN MD PROCEDURE CODES FA211 ESTABILISHED PATIENT [facility] CHARGE DISPOSITION & COMMUNICATION FOLLOW UP 2 MONTHS (REASON: WORKMEN'S COMP FOLLOW-UP LOW BACK PAIN/MED MANAGEMENT/URINE TOX) ELECTRONICALLY SIGNED BY ALETA MACIEL ON 01/11/2020 AT 09:34 AM EDT DISCLAIMER : THIS IS A VISIT SUMMARY EXTRACTED FROM THE [employer] CHART. IT IS NOT A COPY OF THE [employer] PROGRESS NOTE. MTDD
== END ==
LOC: M PAIN 11:00
PROVIDERS: ATTEND Nurse Practitioner Family
DX: M54.16 Radiculopathy, lumbar region (principal); I10 Essential (primary) hypertension; E78.00 Pure hypercholesterolemia, unspecified; F32.9 Major depressive disorder, single episode, unspecified; M96.1 Postlaminectomy syndrome, not elsewhere classified; Z79.891 Long term (current) use of opiate analgesic; Z85.51 Personal history of malignant neoplasm of bladder; Z87.891 Personal history of nicotine dependence; Z79.84 Long term (current) use of oral hypoglycemic drugs; Z88.5 Allergy status to narcotic agent

== ENCOUNTER 2020-02-05 13:12 | Inpatient (IN) | payer OTHER ==
[~2020-02-05] VITALS: Ht 180.3 cm; Wt 101.3 kg
[~2020-02-05 13:12] MED LIST changes: -ATOR1TAB21 PO; -BUPR150T5 PO; -FENO134C PO; -GABA-843 PO; -METF10004 PO; -MULTCAP PO
[2020-02-05] MEDS ORDERED: FENO134C PO (13:27)
[2020-02-05] MEDS ORDERED: ATOR1TAB21 PO (13:27)
[2020-02-05] MEDS ORDERED: MULTCAP PO (13:27)
[2020-02-05] MEDS ORDERED: METF10004 PO (13:27)
[2020-02-05] MEDS ORDERED: GABA-843 PO (13:27)
[2020-02-05] MEDS ORDERED: BUPR150T5 PO (13:27)
[2020-02-05] MEDS ORDERED: diazePAM 10MG/2ML SYRINGE (J3360 PER 5MG) IM ONE (14:15)
[2020-02-05] MEDS ORDERED: KETOROLAC 60MG 2ML VIAL IM ONE (14:15)
--- NOTE | 2020-02-05 15:14 | REP ---
INDICATION: admit. COMPARISON: None. TECHNIQUE: Sitting upright portable exam. Two views. FINDINGS: The lungs are somewhat hyperinflated but free of infiltrate. Pleural angles are sharp. Heart size is normal. Pulmonary vasculature is not increased. No significant bony abnormality. IMPRESSION: Hyperinflation. No acute disease. <Electronically signed by Brannon Jo > 02/05/20 2413
[2020-02-05 15:40] LABS: HEMATOCRIT 44.5 % (42.0-52.0); HEMOGLOBIN 14.4 g/dl (13.5-17.5); MEAN CORPUSCULAR HEMOGLOBIN 28.7 pg (27.0-33.0); MEAN CORPUSCULAR HGB CONC 32.4 g/dl (32.0-36.5); MEAN CORPUSCULAR VOLUME 88.8 fl (80.0-96.0); PLATELET COUNT, AUTOMATED 344 10^3/uL (150-450); RED BLOOD COUNT 5.01 10^6/uL (4.30-6.10); WHITE BLOOD COUNT 7.7 10^3/uL (4.0-10.0)
[2020-02-05 16:01] LABS: CALCIUM LEVEL 9.7 MG/DL (8.8-10.2); CREATININE FOR GFR 1.57 MG/DL (0.70-1.30); GLOMERULAR FILTRATION RATE 47.6 (>49); POTASSIUM SERUM 4.6 MEQ/L (3.5-5.1)
[2020-02-05] MEDS ORDERED: HYDR-3716 PO (16:53)
[2020-02-05 17:38] LABS: HEMOGLOBIN A1c 6.5 %
[2020-02-05] MEDS: GABAPENTIN 300 MG CAP PO SCH (19:11)
[2020-02-05] MEDS: ATORVASTATIN 20 MG TAB PO SCH (19:11)
[2020-02-05] MEDS: ANEXSIA, NORCO 7.5MG/325MG TABLET(HYDROCODONE/APAP) PO PRN (19:13)
[2020-02-05] MEDS ORDERED: ADVAIR HFA 115/21MCG INHALER INH PRN (20:00)
[2020-02-05] MEDS: DOCUSATE SODIUM 100 MG CAP PO PRN (20:47)
[2020-02-05 22:00] VITALS: BP 154/85
[2020-02-06] MEDS ORDERED: CYCLOBENZAPRINE 5MG TABLET PO ONE
[2020-02-06] MEDS: ANEXSIA, NORCO 7.5MG/325MG TABLET(HYDROCODONE/APAP) PO PRN ×3 (01:01→15:35)
[2020-02-06 06:00] VITALS: BP 146/72
[2020-02-06 07:52] LABS: HEMATOCRIT 43.1 % (42.0-52.0); HEMOGLOBIN 14.1 g/dl (13.5-17.5); MEAN CORPUSCULAR HEMOGLOBIN 29.4 pg (27.0-33.0); MEAN CORPUSCULAR HGB CONC 32.7 g/dl (32.0-36.5); MEAN CORPUSCULAR VOLUME 89.8 fl (80.0-96.0); PLATELET COUNT, AUTOMATED 343 10^3/uL (150-450); WHITE BLOOD COUNT 6.8 10^3/uL (4.0-10.0)
[2020-02-06 08:02] LABS: CALCIUM LEVEL 9.3 MG/DL (8.8-10.2); CREATININE FOR GFR 1.71 MG/DL (0.70-1.30); GLOMERULAR FILTRATION RATE 43.1 (>49); POTASSIUM SERUM 4.6 MEQ/L (3.5-5.1)
[2020-02-06 08:36] VITALS: BP 146/72
[2020-02-06] MEDS: GABAPENTIN 300 MG CAP PO SCH ×2 (08:36→20:37)
[2020-02-06] MEDS: ENOXAPARIN 40MG/0.4ML SYRINGE (J1650 PER 10MG) SC SCH (08:36)
[2020-02-06] MEDS: OMEPRAZOLE 20 MG CAP PO SCH (08:36)
[2020-02-06] MEDS ORDERED: LOSARTAN 50MG TABLET PO SCH (09:00)
[2020-02-06] MEDS: buPROPion **SR TABLET** (ZYBAN) 150MG PO SCH (09:52)
[2020-02-06 14:00] VITALS: BP 135/89
[2020-02-06] MEDS: NS 0.45% 1,000 ML IV SCH ×2 (16:20→20:39)
[2020-02-06] MEDS: ATORVASTATIN 20 MG TAB PO SCH (20:37)
[2020-02-06 22:00] VITALS: BP 140/89
[2020-02-06] MEDS: ONDANSETRON 4MG/2ML VIAL IV PRN (22:56)
[2020-02-07] MEDS: ANEXSIA, NORCO 7.5MG/325MG TABLET(HYDROCODONE/APAP) PO PRN ×2 (03:58→10:03)
[2020-02-07] MEDS: NS 0.45% 1,000 ML IV SCH ×3 (03:59→20:45)
[2020-02-07 06:00] VITALS: BP 118/71
[2020-02-07] MEDS: ONDANSETRON 4MG/2ML VIAL IV PRN ×2 (07:32→13:59)
[2020-02-07] MEDS: DOCUSATE SODIUM 100 MG CAP PO PRN (09:05)
[2020-02-07] MEDS: GABAPENTIN 300 MG CAP PO SCH ×2 (09:05→20:45)
[2020-02-07] MEDS: OMEPRAZOLE 20 MG CAP PO SCH (09:05)
[2020-02-07] MEDS: buPROPion **SR TABLET** (ZYBAN) 150MG PO SCH (09:05)
[2020-02-07] MEDS: ENOXAPARIN 40MG/0.4ML SYRINGE (J1650 PER 10MG) SC SCH (09:06)
[2020-02-07 09:49] LABS: CALCIUM LEVEL 8.8 MG/DL (8.8-10.2); CREATININE FOR GFR 1.5 MG/DL (0.70-1.30); GLOMERULAR FILTRATION RATE 50.2 (>49); POTASSIUM SERUM 4.4 MEQ/L (3.5-5.1)
--- NOTE | 2020-02-07 12:03 | HPE ---
DATE OF ADMISSION: 02/05/2020 PRIMARY CARE PROVIDER: Veda Davis N.P. ORTHOPEDIC SURGEON: Dr. Bucky Minor CHIEF COMPLAINT: Inability to move left leg. HISTORY: Henrique Briscoe is a 64-year-old who was sent from the pain clinic today when he could not stand or move his left leg. He has had chronic back problems. He has been followed at the pain clinic in the past. He sees Dr. Bucky Minor in orthopedic group, including a few weeks ago. He had an MRI scan done at the [facility]. I do not have access to the official report, but per pain clinic notes, "MRI of lumbar spine dated 01/04/2020 showed fusion at L5-S1. Some spondylolisthesis at L5-S1. There is spasticity in the lower back with the presence of trigger points and bands of tissue." Patient says he has had burning, severe stabbing pain ranging from 8-10 over 10. He has a history lumbar surgery. He injured his back originally August 1993 lifting a fertilizer machine. He has had no fever, chills, worsening nighttime pain, bowel or bladder dysfunction. PAST MEDICAL HISTORY: 1. Kidney stones. 2. Bladder cancer. 3. Hypertension. 4. Hyperlipidemia. 5. History of depression. HOME MEDICATIONS: - omeprazole 20 mg daily - losartan 50 mg daily - Zyrtec 5 mg daily - fenofibrate 134 mg daily - albuterol two puffs four times a day. as needed - metformin 1000 mg daily - atorvastatin 20 mg daily - Colace 100 mg twice a day as needed - trazodone 100 mg every night - Wellbutrin XL 150 mg daily - gabapentin 300 mg three times a day - [place] 7.5/325 every 4 hours as needed ALLERGIES: MORPHINE caused headache. PAST SURGICAL HISTORY: 1. Lumbar surgery in 2000. 2. Bladder surgery September 2015. 3. Right hand inured in a chain saw in 1965. FAMILY HISTORY: Father of unspecified heart problems at 77. Mother at 83 of heart disease and diabetes. SOCIAL HISTORY: Quit smoking less than 5 years ago. No significant alcohol use. REVIEW OF SYSTEMS: As above. No fever, chills, night sweats, rectal bleeding, urinary bleeding, bowel or bladder dysfunction. PHYSICAL EXAMINATION: VITAL SIGNS: Per flow sheet. He is alert, conversant. No distress. HEENT: Pupils equal and reactive to light. Tympanic membranes (TMs) and oropharynx benign. NECK: No masses. LUNGS: Clear. HEART: Regular without murmur. ABDOMEN: Soft, nontender. No masses. Trace peripheral edema. His low back is tender to palpate. He has spasticity of the lumbosacral muscles. There is no spinal tenderness to percussion in the midline. He reports normal rectal tone. Patient has normal strength in the right leg. Left leg is weak. He can only lift it an inch off the exam table. He then developed severe pain in his back and leg and had to cease his effort. Reflexes are still present in the lower extremities. LABORATORY DATA: Sodium 140, potassium 4.6, BUN 27, creatinine 1.57. Baseline creatinine is around 1.3. White cell count 7.7, hemoglobin 14.4, platelets 344. Chest x-ray: No active disease. IMPRESSION: Severe left low back and left leg pain with inability to walk. PLAN: 1. Patient was seen by physical therapy in the emergency room and was unable to stand or walk. He will be admitted for pain control and physical therapy. He had an MRI of the lumbosacral spine done on 01/04/2020 at [facility]. The results are summarized above. Patient was hoping to see Dr. Minor. I called [facility]. He will not be available until 02/09/2020, but his nurse was kind enough to reach out to him to give me a call, and I provided my cell phone number. I will consult the on-call orthopedic surgeon. There is no evidence of cauda equina syndrome. Reviewing the pain clinic note, which I have access to, indicates that they plan to have the patient see Dr. Minor for his opinion about where to go further with this. They were considering trigger point injections or maybe a spinal cord stimulator. They note that he was screened for depression. He scored high, but the patient says he was just frustrated with his pain. 2. Hypertension. Continue his current medications. 3. Type 2 diabetes. Continue metformin, will check a hemoglobin A1c. 4. Hyperlipidemia. Continue current dose of atorvastatin 20 mg daily. 5. History of depression. Continue his psychotropic medications, including trazodone and Wellbutrin. [facility]
--- NOTE | 2020-02-07 12:07 | IPN ---
DATE: 02/06/2020 Henrique was seen on [address], admitted with intractable low back pain and left leg pain. He says he cannot bear weight on it, but it is due to pain and it is not really weakness. Per physical therapy, was not able to get out of bed today. PHYSICAL EXAMINATION: Lungs: Clear. Heart: Regular rhythm. Abdomen: Soft, nontender. Low back is mildly tender and spastic. It hurts for him to lift his left leg even 1/2 to 1 inch off the bed. IMPRESSION: Left low back and left leg pain. PLAN: I have consulted orthopaedics, he is a patient of Dr. Ponce. He had an MRI of the lumbosacral spine done about 2 weeks ago and details are in the dictated history and physical which is still pending. Case discussed with orthopaedics. ANGELO
--- NOTE | 2020-02-07 12:10 | IPN ---
DATE: 02/06/2020 Henrique's labs returned. He is developing increased renal insufficiency. His creatinine has risen from 1.5 to 1.7. Baseline looks around 1.3. He did receive some Toradol in the emergency room yesterday. This was not continued upon admission. I am stopping his losartan and giving him intravenous (IV) fluids. He has repeat labs ordered for tomorrow. If renal function deteriorates further, will ask nephrology to see him. ANGELO
[2020-02-07 14:00] VITALS: BP 143/86
--- NOTE | 2020-02-07 15:53 | IPN ---
DATE: 02/07/2020 SUBJECTIVE: Henrique is about the same as yesterday. Unfortunately his labs are not back yet. We have been watching his renal function. He has developed some acute kidney injury. He was exposed to Ketorolac for pain relief in the Emergency Room. He does have some baseline chronic kidney disease. He does not feel any better as far as the pain and inability to use his left leg. No chest pain. No shortness of breath. He is nauseated today. PHYSICAL EXAMINATION: VITALS: Afebrile, vital signs stable. LUNGS: Clear. ABDOMEN: Soft, nontender. EXTREMITIES: He can raise his left leg about a half inch off the bed. Lowering it causes quite a bit of pain in his low back and leg. Good pulse in the leg and foot. Less pain with passive range of motion and active range of motion. LABORATORY DATA: Labs are pending. IMPRESSION AND PLAN: 1. Low back pain with left leg weakness: Waiting for Saturday when Dr. Cantu is back from orthopedic group; he sees this patient in his office. We have been holding off doing any imaging as he had a recent MRI scan at [facility] a few weeks ago, however with the change and lack of progress during this hospitalization, I am going to go ahead and get an MRI scan of his low back without contrast. 2. Acute kidney injury superimposed on chronic kidney disease: Lab work is pending. 3. COPD: Stable, asymptomatic. MTDD
[2020-02-07] MEDS ORDERED: ANEXSIA, NORCO 7.5MG/325MG TABLET(HYDROCODONE/APAP) PO PRN (17:00)
[2020-02-07] MEDS: ATORVASTATIN 20 MG TAB PO SCH (20:45)
[2020-02-07 21:55] VITALS: BP 157/80
[2020-02-08 06:00] VITALS: BP 132/82
[2020-02-08 07:08] LABS: HEMATOCRIT 41.5 % (42.0-52.0); HEMOGLOBIN 13.9 g/dl (13.5-17.5); MEAN CORPUSCULAR HGB CONC 33.5 g/dl (32.0-36.5); MEAN CORPUSCULAR VOLUME 89.4 fl (80.0-96.0); PLATELET COUNT, AUTOMATED 330 10^3/uL (150-450); RED BLOOD COUNT 4.64 10^6/uL (4.30-6.10); WHITE BLOOD COUNT 7.7 10^3/uL (4.0-10.0)
[2020-02-08 07:23] LABS: CALCIUM LEVEL 8.8 MG/DL (8.8-10.2); CREATININE FOR GFR 1.46 MG/DL (0.70-1.30); GLOMERULAR FILTRATION RATE 51.7 (>49)
[2020-02-08] MEDS: OMEPRAZOLE 20 MG CAP PO SCH (08:46)
[2020-02-08] MEDS: GABAPENTIN 300 MG CAP PO SCH (08:46)
[2020-02-08] MEDS: buPROPion **SR TABLET** (ZYBAN) 150MG PO SCH (08:46)
[2020-02-08] MEDS: ENOXAPARIN 40MG/0.4ML SYRINGE (J1650 PER 10MG) SC SCH (08:47)
[2020-02-08] MEDS ORDERED: MIRALAX *UNIT DOSE* 17GM PACKET PO SCH (09:00)
[2020-02-08] MEDS ORDERED: SENOKOT S TAB PO SCH (09:00)
--- NOTE | 2020-02-08 14:28 | CR ---
DATE OF CONSULTATION: 02/06/2020 TIME: About 9 a.m. PREOPERATIVE DIAGNOSIS: Left-sided L4, L5 lumbar radiculopathy. CONSULTATION NOTE INDICATION: This is a 64-year-old male whom I was consulted by internal medicine for rule out of a caudal equina. This is a patient well known to the [facility] orthopaedic service as well as local pain management group being managed for what the patient explains as lumbago. The patient apparently was seen in pain management yesterday on 02/05/2020 and during his pain management course the provider felt the patients pain needed to be managed more aggressively with admission through the emergency room (ER) to . The hospitalist consulted orthopaedics for rule out of cauda equina. As described below, the patient presented with L4, L5 left-sided radicular symptoms not consistent with cauda equina. PAST MEDICAL HISTORY: Included hypertension, depression, and long history of lumbago. PAST SURGICAL HISTORY: Includes in 1993 the patient had a fusion which he believes was at L4-L5, in 2000 the patient had an unknown back surgery consistent with likely revision fusion however this could not be confirmed. PATIENTS MEDICATIONS: Include: - Vicodin - gabapentin - hypertension The patient was unable to recall any other medications at this time, however he did report he took a few more. ALLERGIES: Patient denies medication allergies. IMAGING: At the time of consultation, the patient did not have any imaging, however we will recommend the patient undergo lumbar spinal x-rays at this point in time. The patient did report having a recent lumbar MRI within the last several weeks from an outside facility. PHYSICAL EXAMINATION: The patient had intact rectal tone. The patient's right lower extremity was essentially unaffected. He had 2+ dorsalis pedis and posterior tibial pulse and 5/5 motor strength in the extensor hallucis longus (EHL), flexor hallucis longus (FHL), tibia and gastrocsoleus complex musculature. Further more specific lumbar physical exam described below. L1: Sensation intact to light touch, hip flexors with 5/5 strength. L2: Sensation intact to light touch with 5/5 hip flexor strength. L3: Sensation intact to light touch. L4: Sensation intact to light touch with 5/5 motor strength to the extensor digitorum longus (EDL) and extensor hallucis longus (EHL). L5: Sensation intact to light touch, 5/5 strength EDL, EHL. S1: Sensation intact to light touch, 5/5 motor strength in gastrocsoleus complex. S2: Sensation intact to light touch. S3: Sensation intact to light touch. S4: Sensation intact to light touch. The patient did not have any bowel or bladder incontinence. Left side: L1: Sensation intact to light touch with 5/5 hip flexor strength. L2: Sensation intact to light touch with 5/5 hip flexor strength. L3: Sensation intact to light touch. L4: Paresthesias in the L4 dermatome, 4/5 strength to the EDL and EHL. L5: Paresthesias to the L5 dermatome with 4/5 strength to the EDL, EHL. S1: Sensation intact to light touch, 5/5 gastrocsoleus complex strength. S2: Sensation intact to light touch. S3: Sensation intact to light touch. S4: Sensation intact to light touch. The patient did have intact right and left L4 and S1 reflexes. The patient had normal rectal tone. He denies any lower extremity sensorimotor changes and describes mild left-sided S1 lower extremity pain but describes more paresthesias in the L4, L5 distribution. ASSESSMENT: This is a 64-year-old male with left-sided acute on chronic exacerbation of his L4, L5 radiculopathy. The patient did not have any clinical signs indicating he had cauda equina. Of note, the patient did not have any saddle anesthesia, had no lower extremity sensorimotor changes other than L4, L5 paresthesias, did not have any incontinence, and had intact rectal tone. PLAN: The plan for this patient is pain control and ambulation if possible with physical therapy. The patient will followup with [facility] orthopaedics or his pain management clinic for continued outpatient workup and management of his left-sided L4, L5 radiculopathy and lumbago. ANGELO
--- NOTE | 2020-02-08 14:30 | IPN ---
DATE: 02/08/2020 SUBJECTIVE: Henrique feels better today. He is moving his legs, he would like to try to get out of bed, he thinks he would like to try to go home. He is constipated so we are attending to that. His renal function improved with hydration. He had some mild acute kidney injury probably related to Ketorolac therapy. He was not able to get his MRI scan done as he had a lot of nausea, I think that was coming from his opiates. We reduced the dose of his hydrocodone and the nausea is significantly better. PHYSICAL EXAMINATION: VITAL SIGNS: Blood pressure 132/82, pulse 71, respiratory rate 20, 95% on O2 saturation. LUNGS: Clear. HEART: Regular rhythm. ABDOMEN: Soft, nontender. EXTREMITIES: His left lower extremity has a good pulse. Normal sensation. He can lift a little higher off the bed than yesterday without as much pain. ASSESSMENT/PLAN: 1. Intractable left low back and left leg pain. Physical Therapy has been ordered. The patient would like to try to go home. The plan was for him to see Dr. Minor, his orthopedic surgeon, who is back tomorrow, but if he would like to go home today and passes a home safety evaluation I would be eager to have him discharged with outpatient follow-up. 2. Constipation. Bowel care ordered. 3. Acute kidney injury, resolved with hydration. Avoid NSAIDs. 4. Hyperlipidemia, continue atorvastatin 20 mg daily. 5. History of depression, continue his Wellbutrin. MTDD
--- NOTE | 2020-02-08 18:29 | REP ---
INDICATION: pain, left leg weak. COMPARISON: 07/30/2017. TECHNIQUE: Sagittal axial sequences obtained without the use of intravenous contrast. FINDINGS: L5 vertebral body is obscured by metallic fusion hardware posteriorly at that level. L1 through L4 vertebral bodies are normal in height and well aligned. Small me angioma is seen in L1 vertebral body. Conus is unremarkable. There is loss of signal and disc degeneration at L3-4 and L4-5 without significant disc space narrowing. At L1-L2 there is no evidence of disc bulging or herniation and no spinal stenosis. At L2-L3 there is no significant disc bulging or herniation. There is mild hypertrophic change at the posterior facet joints. There is no spinal stenosis or foraminal narrowing. At L3-L4 there is mild diffuse disc bulging. There is mild hypertrophic change at the posterior facet joints. There is mild disc protrusion laterally on the right causing mild to moderate right-sided foraminal narrowing at this level. Spinal canal is adequate. At L4-L5 there is limited visualization of the spinal canal due to metallic artifact from posterior fusion hardware. There does not appear to be significant spinal canal stenosis. I suspect mild disc bulging diffusely. At L5-S1 there is limited visualization of the spinal canal, but it appears patent. IMPRESSION: Limited visualization of L4-5 and L5-S1 levels due to posterior metallic fusion hardware. At L3-4 there is mild diffuse disc bulging with a small right lateral disc protrusion causing mild to moderate right-sided foraminal narrowing at that level. Preliminary report provided by [facility] at the time of the exam. <Electronically signed by Henrique Gusman > 02/08/20 0298
== END 2020-02-08 13:05 | disposition home or self-care (01) | DRG 347 ==
LOC: M ED 13:12 → M ED INP 13:13 → ENRESERV 17:09 → M MS5PR 19:07 → INTOOBSV 02-08 09:51 → OBSVTOIN 02-08 09:51
PROVIDERS: ADMIT Family Medicine; ATTEND Internal Medicine Nephrology
DX: M51.36 Other intervertebral disc degeneration, lumbar region (principal); N17.9 Acute kidney failure, unspecified; I12.9 Hypertensive chronic kidney disease with stage 1 through stage 4 chronic kidney disease, or unspecified chronic kidney disease; E78.5 Hyperlipidemia, unspecified; F32.9 Major depressive disorder, single episode, unspecified; Z79.899 Other long term (current) drug therapy; Z85.51 Personal history of malignant neoplasm of bladder; Z87.442 Personal history of urinary calculi; E11.9 Type 2 diabetes mellitus without complications; J44.9 Chronic obstructive pulmonary disease, unspecified; N18.9 Chronic kidney disease, unspecified

== ENCOUNTER → 2020-02-05 | Outpatient (CLI) | payer OTHER ==
[~2020-02-05] MED LIST changes: +ATOR1TAB21 PO; +BUPR150T5 PO; +FENO134C PO; +GABA-843 PO; +METF10004 PO; +MULTCAP PO
--- NOTE | 2020-02-09 01:28 | ECWPNPC ---
PATIENT NAME: ISAIAH LAWTON : 1955 GENDER: MALE VISIT DATE: 02/05/2020 DISCHARGE DATE: 02/05/20 1305 VISIT LOCKED DATE TIME: PHYSICIAN: IMANI MAYO MD RESOURCE: IMANI MAYO MD REASON FOR APPOINTMENT 1. DISCUSS DCS HISTORY OF PRESENT ILLNESS DEPRESSION SCREENING: PHQ-9 LITTLE INTEREST OR PLEASURE IN DOING THINGSMORE THAN HALF THE DAYS FEELING DOWN, DEPRESSED, OR HOPELESSMORE THAN HALF THE DAYS TROUBLE FALLING OR STAYING ASLEEP, OR SLEEPING TOO MUCHSEVERAL DAYS FEELING TIRED OR HAVING LITTLE ENERGYSEVERAL DAYS POOR APPETITE OR OVEREATING SEVERAL DAYS FEELING BAD ABOUT YOURSELF-OR THAT YOU ARE A FAILURE OR HAVE LET YOURSELF OR YOUR FAMILY DOWN SEVERAL DAYS TROUBLE CONCENTRATING ON THINGS, SUCH READING THE NEWSPAPER OR WATCHING TELEVISION MORE THAN HALF THE DAYS MOVING OR SPEAKING SO SLOWLY THAT OTHER PEOPLE COULD HAVE NOTICED. OR THE OPPOSITE- BEING SO FIDGETY OR RESTLESS THAT YOU HAVE BEEN MOVING AROUND A LOT MORE THAN USUALSEVERAL DAYS THOUGHTS THAT YOU WOULD BE BETTER OFF , OR OF HURTING YOURSELF IN SOME WAY?NOT AT ALL TOTAL SCORE:11 INTERPRETATIONMODERATE DEPRESSION PHQ-2 (2015 EDITION) LITTLE INTEREST OR PLEASURE IN DOING THINGS?MORE THAN HALF THE DAYS FEELING DOWN, DEPRESSED, OR HOPELESS?NEARLY EVERY DAY TOTAL SCORE5 GENERAL: 64-YEAR-OLD MALE PATIENT WITH A HISTORY OF CHRONIC LOW BACK AND MAINLY LEFT PAIN. THE PATIENT DESCRIBES THE PAIN BURNING, SEVERE AND STABBING WITH A PAIN SCORE RANGING FROM 8-10/10 DEPENDING ON PHYSICAL ACTIVITY. 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 HE HAS HISTORY OF A BACK SURGERY. THE PATIENT STATES THAT HE IS HAVING DIFFICULTY DOING THINGS AT HIS HOUSE. HE CANNOT CLEAN OR GO GR[employer]ERY SHOPPING. PATIENT DENIES UNEXPLAINABLE WEIGHT LOSS, FEVER, CHILLS, NEW CHANGES ON URINARY OR BOWEL CONTROL. FALL RISK SCREENING: SCREENING :NO FALLS REPORTED IN THE LAST YEAR PAIN SCREENING: PATIENT HAS A COMPLAINT OF ACUTE OR CHRONIC PAIN :YES LOCATION OF PAIN:LOW BACK, LEG(S) LEFT LOW BACK, LEFT LEG INTENSITY OF PAIN (SCALE OF 1 TO 10):10 WHAT DOES YOUR PAIN FEEL LIKE:ACHING, CONTINOUS, SHARP, STABBING, TENDER, THROBBING, SHOOTING DURATION:CONTINOUS, CONSTANT, ALL DAY PAIN IS INCREASED BY:ACTIVITIES ANY MOVEMENT PAIN IS DECREASED BY:USE OF PAIN MEDICATIONS, SITTING SITTING, RELAXING NURSING NOTE: -. PAIN CENTER INTAKE QUESTIONS: DO YOU HAVE A HISTORY OF MRSA? :NO DO YOU TAKE A BLOOD THINNERS? :NO DO YOU HAVE ANY BLEEDING DISORDERS? :NO ANY NEW NUMBNESS OR WEAKNESS IN YOUR LEGS OR ARMS? :NO ANY PACEMAKER,DEFIBRILLATOR, OR DORSAL COLUMN STIMULATOR? :NO DO YOU HAVE ANY RASHES OR OPEN SORES? :NO ARE YOU ALLERGIC TO IV DYE? :NO ARE YOU DIABETIC? :NO ANY NEW PROBLEMS WITH YOUR MEDICATIONS? :NO HAVE YOU RECEIVED A VACCINE IN THE PAST 30 DAYS? :YES IF SO WHAT VACCINE AND WHEN? FLU SHOT 1 MONTH AGO DO YOU PLAN TO RECEIVE A VACCINE IN THE NEXT 21 DAYS? :NO DO YOU NEED ANY PRESCRIPTION? :NO DO YOU TAKE ANY IMMUNOSUPPRESSIVE MEDICATIONS? :NO IS THERE A CHANCE YOU COULD BE ? :NO ARE YOU BREAST FEEDING? :NO CURRENT MEDICATIONS TAKING OMEPRAZOLE 20 MG CAPSULE DELAYED RELEASE 1 CAPSULE ORALLY ONCE A DAY TAKING LOSARTAN POTASSIUM 50 MG TABLET 1 TABLET ORALLY ONCE A DAY TAKING LEVOCETIRIZINE DIHYDROCHLORIDE 5 MG TABLET 1 TABLET IN THE EVENING ORALLY ONCE A DAY TAKING FENOFIBRATE MICRONIZED 134 MG CAPSULE 1 CAPSULE WITH A MEAL ORALLY ONCE A DAY TAKING VENTOLIN HFA 108 (90 BASE) MCG/ACT AEROSOL SOLUTION 2 PUFFS NEEDED INHALATION EVERY 6 HRS TAKING ONE DAILY COMPLETE FOR MEN - TABLET 1 TABLET ORALLY DAILY TAKING METFORMIN HCL 1000 MG TABLET 1 TABLET WITH A MEAL ORALLY ONCE A DAY TAKING ATORVASTATIN CALCIUM 20 MG TABLET 1 TABLET ORALLY ONCE A DAY TAKING COLACE 100 MG CAPSULE 1 CAPSULE ORALLY BID NEEDED FOR CONSTIPATION MDD2 TAKING TRAZODONE HCL 100 MG TABLET 1 TABLET AT BEDTIME ORALLY ONCE A DAY TAKING BUPROPION HCL ER (XL) 150 MG TABLET EXTENDED RELEASE 24 HOUR 1 TABLET IN THE MORNING ORALLY ONCE A DAY TAKING GABAPENTIN 300 MG CAPSULE 1 CAPSULE ORALLY THREE TIMES DAILY, NOTES: HAS NOT BEEN TAKING STATES HE DOES NOT HAVE IT TAKING NORCO 7.5-325 MG TABLET 1 TABLET ORALLY EVERY 4 HRS PRN PAIN MDD=6 TAKING HYDROCODONE-ACETAMINOPHEN 7.5-325 MG TABLET 1 TABLET NEEDED ORALLY Q4-6H PRN PAIN MDD6 NOT-TAKING HYDROCODONE-ACETAMINOPHEN 7.5-325 MG TABLET 1 TABLET NEEDED ORALLY Q4-6H PRN MDD6 NOT-TAKING AMOXICILLIN-POT CLAVULANATE 875-125 MG TABLET 1 TABLET ORALLY EVERY 12 HRS NOT-TAKING AMITRIPTYLINE HCL 50 MG TABLET 1 TABLET ORALLY ONCE A DAY MEDICATION LIST REVIEWED AND RECONCILED WITH THE PATIENT PAST MEDICAL HISTORY LOW BACK PAIN KIDNEY STONES BLADDER CANCER LEFT LEG WEAKNESS AFTER PROCEDURE HTN PNEUMONIA ELEVATED CHOLESTEROL DEPRESSION ALLERGIES MORPHINE SULFATE: HEADACHE - SIDE EFFECTS SURGICAL HISTORY LUMBAR SURGURY 2000 BLADDER SURGERY OR 09/2015 RIGHT HAND SURGERY AFTER CHAINSAW INJURY 1965 OR 1966 FAMILY HISTORY FATHER: 77 YRS, DIAGNOSED WITH UNSPECIFIED HEART DISEASE, UNSPECIFIED CEREBRAL ARTERY OCCLUSION WITH CEREBRAL INFARCTION, HYPERTENSION MOTHER: 83 YRS, HEART DISEASE, DIABETES 1 SON(S) - HEALTHY. DAD-CHF, OVER WEIGHT\\N1 SON AFTER 4 TRUJILLO ACCIDENT. SOCIAL HISTORY GENERAL: TOBACCO USE ARE YOU A:FORMER SMOKER HOW LONG HAS IT BEEN SINCE YOU LAST SMOKED?1-5 YEARS LATEX QUESTIONNAIRE LATEX ALLERGY : HAVE YOU EVER DEVELOPED ANY TYPE OF REACTION AFTER HANDLING LATEX PRODUCTS SUCH RUBBER GLOVES, CONDOMS, DIAPHRAGMS, BALLOONS, SOCKS, OR UNDERWEAR?NO LATEX ALLERGY : HAVE YOU EVER DEVELOPED ANY TYPE OF REACTION DURING OR AFTER DENTAL APPOINTMENT, VAGINAL/RECTAL EXAMINATION, SURGICAL PROCEDURE, OR ANY OTHER EXPOSURE?NO LATEX RISK : HAVE YOU EVER HAD ANY DIFFICULTY BREATHING OR HIVES AFTER EATING OR HANDLING ANY FRUITS, OR VEGETABLES; SUCH KIWI, BANANAS, STONE FRUITS, OR CHESTNUTSNO LATEX RISK : DO YOU HAVE A PREVIOUS PERSONAL HISTORY OF MORE THAN NINE SURGERIES, SPINA BIFIDA, OR REPEATED CATHERIZATIONS? NO LATEX RISK : ARE YOU FREQUENTLY EXPOSED TO LATEX PRODUCTS IN YOUR OCCUPATION?NO DATE ASKED : 02/05/2020 ALCOHOL SCREENING DID YOU HAVE A DRINK CONTAINING ALCOHOL IN THE PAST YEAR?NO POINTS0 INTERPRETATIONNEGATIVE RECREATIONAL DRUG USE DRUG USE?NO CAFFEINE CAFFEINE USE?YES HOW OFTEN AND HOW MUCH? CUP OF COFFEE/DAY FAITH [id number] CONFUCIANIST LANGUAGE LANGUAGES SPOKEN:SYRIAC LEARNING BARRIERS / SPECIAL NEEDS BARRIERS TO LEARNING?NO HEARING IMPAIRED?NO VISION IMPAIRED?YES COGNITIVELY IMPAIRED?NO :CORRECTIVE LENSES READINESS TO LEARN?YES LEARNING PREFERENCES?YES :BOOKLETS, HANDOUTS LEARNING CAPABILITIES PRESENT?YES EMOTIONAL BARRIERS?NO SPECIAL DEVICES?YES :CANE, WALKER PATHOLOGY TECHNICIAN NEEDED?NO DOMESTIC VIOLENCE DO YOU FEEL SAFE IN YOUR ENVIRONMENT?YES PAIN CLINIC PFS, CLERGY, PUBLIC HEALTH REFERRALS PFS REFERRAL NEEDED?NO CLERGY REFERRAL NEEDED?NO PUBLIC HEALTH REFERRAL NEEDED?NO WAS THE PROVIDER NOTIFIED OF ANY PERTINENT INFO? N/A HAS THE PATIENT BEEN EDUCATED REGARDING HIS/HER PLAN OF CARE?YES HAS THE PATIENT BEEN EDUCATED REGARDING PAIN, THE RISK FOR PAIN, THE IMPORTANCE OF EFFECTIVE PAIN MANAGEMENT, AND THE PAIN ASSESSMENT PROCESS?YES ADVANCE DIRECTIVE ADVANCE DIRECTIVE DISCUSSED WITH PATIENT:YES NO HCP ON FILE, PATIENT DECLINED HCP ASSISTANCE OR INFORMATION. HOSPITALIZATION/MAJOR DIAGNOSTIC PROCEDURE SURGERIES LEFT LEG WEAKNESS AFTER PROCEDURE REVIEW OF SYSTEMS CONSTITUTIONAL: ANY RECENT FEVER NO . CHILLS NO . WEIGHT CHANGE OF UNKNOWN REASONS NO . GASTROENTEROLOGY: NEW UNEXPLAINABLE CHANGES IN BOWEL CONTROL NO . CONSTIPATION NO . GENITOURINARY: ANY NEW CHANGE IN BLADDER CONTROL? NO . NEUROLOGY: NEW ONSET DIZZINESS OR NEUROLOGICAL CHANGES NOT MENTIONED NO . NEW NUMBNESS OR PAIN PATTERNS NOT MENTIONED AND PERTINENT TO TODAY'S VISIT NO . CARDIOLOGY: NEW CHEST PRESSURE NO . NEW CHEST PAIN NO . RESPIRATORY: UNEXPLAINABLE COUGH NO . NEW SHORTNESS OF BREATH NO . VITAL SIGNS WT 224.2 LBS, HT 71", BMI 31.27 INDEX, BP 143/78 MM HG, HR 78 /MIN, RR 18 /MIN, TEMP 97.7 F, OXYGEN SAT % 98, SAFE IN ENV? (Y/N) Y, REVIEWED BY: DANUTA RN 1142. EXAMINATION GENERAL EXAMINATION: THE PATIENT IS ALERT, ORIENTED TIMES THREE AND COOPERATIVE. HEART SHOWS REGULAR RHYTHM, NO MURMURS AND NO GALLOPS. LUNGS ARE CLEAR TO AUSCULTATION. THE PATIENT HAS DIFFICULTY STANDING UP. THE PATIENT PREFERS NOT TO TRY AT THE MOMENT. THE LEFT LEG IS WAY WEAKER THAN THE RIGHT LEG ON FLEXION AND EXTENSION. STRAIGHT LEG RAISE IS POSITIVE FOR RADICULOPATHY ON THE LEFT AT 15 DEGREES. MRI OF THE LUMBAR SPINE DATED 01/04/2020 SHOWS A FUSION AT L5-S1, SOME SPONDYLOLISTHESIS OF L5-S1. THERE IS SPASTICITY IN THE LOWER BACK WITH PRESENCE OF TRIGGER POINTS AND BANDS OF TISSUE. ASSESSMENTS MYALGIA - M79.10 (PRIMARY) POST LAMINECTOMY SYNDROME - M96.1 LUMBAR RADICULOPATHY - M54.16 TREATMENT MYALGIA NOTES: PATIENT ESCORTED BY NA AND NURSE TO ER, PATIENT STOOD AND PIVOTED WITHOUT ASSISTANCE TO CLINICS WHEELCHAIR AND THEN WAS ABLE TO SELF TRANSFER IN ED. REPORT CALLED BY DR. MAYO TO ER NURSE, PATIENT ONLY ASSISTED TO ER BY PAIN STAFF DUE TO DIFFICULTY AMBULATING AND HIGH FALL RISK. CLINICAL NOTES: I DISCUSSED ALTERNATIVES WITH MR. LAWTON. THE PATEINT WAS SEE WITH DR. SCHULTE AND THEY WANT TO DO MORE INJECTIONS IN HIS BACK TO SEE IF HE IS A CANDIDATE FOR SURGERY. I HAVE THE LUMBAR MRI THAT SHOWS POST LAMINECTOMY CHANGES. THE PATIENT ALSO DID X-RAYS THAT SHOWS THE FUSION AND SPONDYLOLISTHESIS. AT THIS POINT, I WOULD LIKE TO REQUEST AUTHORIZATION FOR TRIGGER POINT INJECTIONS IN BILATERAL LOWER BACK. I WOULD LIKE TO WAIT FOR DR. SCHULTE'S OPINION. IF THERE IS NOT A SURGICAL SOLUTION, WE CAN CONSIDER SPINAL CORD STIMULATOR. IF THERE IS NOT A SURGICAL SOLUTION, THEN I WOULD LIKE TO GET A THORACIC MRI TO SEE THE SPACE IN THE EPIDURAL SPACE TO PASS THE LEADS AND THE PSYCHOLOGY EVALUATION REQUIRED FOR THE DORSAL COLUMN STIMULATOR TRIAL. THE NURSE DID A SCREENING FOR DEPRESSION AND THE PATIENT SCORED HIGH BUT THE PATIENT STATES THAT HE IS NOT SUICIDAL AND HE IS ONLY FRUSTRATED WITH HIS PAIN. I DO NOT FEEL THAT HE NEEDS FURTHER EVALUATION. THE PATIENT WILL FOLLOW UP WITH NURSE PRACTITIONER FOR MEDICATION MANAGEMENT. THE PATIENT IS VERY UNCOMFORTABLE AND DOES NOT FEEL THAT HE CAN GO HOME DUE TO THE PAIN AND NUMBNESS DOWN THE LEG. WE WILL CONSIDER SENDING THE PATIENT TO THE HOSPITAL. THE PATIENT REPORTS UNDERSTANDING AND AGREES WITH THE PLAN. I, NEGAR BAR, DOCUMENTED THE ABOVE INFORMATION ACTING A SCRIBE FOR DR. MAYO. I HAVE REVIEWED THE ABOVE DOCUMENT, WRITTEN BY NEGAR BAR, COST RECORDER, AND I VERIFY THAT IT IS ACCURATE. PROCEDURE CODES FA211 ESTABILISHED PATIENT LOCATED WITHIN [facility] CHARGE [id number] OFFICE/OUTPATIENT VISIT EST DISPOSITION & COMMUNICATION FOLLOW UP REQUEST AUTH FOR TPI BILATERAL LOWER BACK, BOOK AFTER APPROVED PER DISCUSSION BETWEEN DR. Zuniga AND JESSICA (REASON: MOVE PATIENTS FLOAT PHLEBOTOMIST VISIT SOONER FOR MED MANAGEMENT) ELECTRONICALLY SIGNED BY IMANI MAYO MD, MD ON 02/08/2020 AT 02:21 PM EST DISCLAIMER : THIS IS A VISIT SUMMARY EXTRACTED FROM THE [employer] CHART. IT IS NOT A COPY OF THE [employer] PROGRESS NOTE. ANGELO
== END ==
LOC: M PAIN 11:00
PROVIDERS: ATTEND Anesthesiology
DX: M79.10 Myalgia, unspecified site (principal); M96.1 Postlaminectomy syndrome, not elsewhere classified; M54.16 Radiculopathy, lumbar region; I10 Essential (primary) hypertension; Z86.59 Personal history of other mental and behavioral disorders; Z87.891 Personal history of nicotine dependence; Z88.5 Allergy status to narcotic agent; Z79.891 Long term (current) use of opiate analgesic; Z79.899 Other long term (current) drug therapy

== ENCOUNTER → 2020-02-24 | Outpatient (CLI) | payer OTHER ==
[~2020-02-24] MED LIST changes: +ATOR1TAB21 PO; +BUPR150T5 PO; +FENO134C PO; +GABA-843 PO; +METF10004 PO; +MULTCAP PO
--- NOTE | 2020-02-27 01:52 | ECWPNPC ---
PATIENT NAME: ISAIAH LAWTON : 1955 GENDER: MALE VISIT DATE: 02/24/2020 DISCHARGE DATE: 02/24/20 1516 VISIT LOCKED DATE TIME: PHYSICIAN: TEDDY YUN RESOURCE: TEDDY YUN REASON FOR APPOINTMENT 1. MED MANAGEMENT HISTORY OF PRESENT ILLNESS GENERAL: HERE FOR FOLLOW-UP OF CHRONIC LOW BACK PAIN/LEFT LEG PAIN. HISTORY OF POSTLAMINECTOMY PAIN SYNDROME. THIS IS A WORK RELATED INJURY WITH DATE OF INJURY 1993.DR MAYO SAW PATIENT LAST AND IS WAITING FOR DR MERCADO EVALUATION OF RECENT IMAGING OF SPINE.PATIENT WAS HOSPITALIZED AFTER ER EVALUATION FOR SEVERE PAIN AND INABILITY TO AMBULATE AT HIS LAST VISIT WITH DR MAYO A FEW WEEKS AGO.CONTINUES TO HAVE SIGNIFICANT PAIN ECSPECIALLY WITH AMBULATING BUT NOT SEVERE TODAY.HE DOESNT APPEAR UNCOMFORTABLE BUT WALKS WITH A SLOW ,ANTAGIC/GUARDED GAIT. -. FALL RISK SCREENING: SCREENING :NO FALLS REPORTED IN THE LAST YEAR PAIN SCREENING: PATIENT HAS A COMPLAINT OF ACUTE OR CHRONIC PAIN :YES LOCATION OF PAIN:LOW BACK, LEFT HIP, LEG(S) LEFT LEG INTENSITY OF PAIN (SCALE OF 1 TO 10):7 WHAT DOES YOUR PAIN FEEL LIKE:ACHING, BURNING DURATION:CONTINOUS, CONSTANT, ALL DAY PAIN IS INCREASED BY:ACTIVITIES, PROLONGED STANDING WALKING PAIN IS DECREASED BY:OTHERS HEAT NURSING NOTE: -. PAIN CENTER INTAKE QUESTIONS: DO YOU HAVE A HISTORY OF MRSA? :NO DO YOU TAKE A BLOOD THINNERS? :NO DO YOU HAVE ANY BLEEDING DISORDERS? :NO ANY NEW NUMBNESS OR WEAKNESS IN YOUR LEGS OR ARMS? :NO ANY PACEMAKER,DEFIBRILLATOR, OR DORSAL COLUMN STIMULATOR? :NO DO YOU HAVE ANY RASHES OR OPEN SORES? :NO ARE YOU ALLERGIC TO IV DYE? :NO ARE YOU DIABETIC? :NO ANY NEW PROBLEMS WITH YOUR MEDICATIONS? :NO HAVE YOU RECEIVED A VACCINE IN THE PAST 30 DAYS? :NO DO YOU PLAN TO RECEIVE A VACCINE IN THE NEXT 21 DAYS? :NO DO YOU NEED ANY PRESCRIPTION? :YES NORCO DO YOU TAKE ANY IMMUNOSUPPRESSIVE MEDICATIONS? :NO IS THERE A CHANCE YOU COULD BE ? :NO ARE YOU BREAST FEEDING? :NO CURRENT MEDICATIONS TAKING OMEPRAZOLE 20 MG CAPSULE DELAYED RELEASE 1 CAPSULE ORALLY ONCE A DAY TAKING LOSARTAN POTASSIUM 50 MG TABLET 1 TABLET ORALLY ONCE A DAY TAKING LEVOCETIRIZINE DIHYDROCHLORIDE 5 MG TABLET 1 TABLET IN THE EVENING ORALLY ONCE A DAY TAKING FENOFIBRATE MICRONIZED 134 MG CAPSULE 1 CAPSULE WITH A MEAL ORALLY ONCE A DAY TAKING VENTOLIN HFA 108 (90 BASE) MCG/ACT AEROSOL SOLUTION 2 PUFFS NEEDED INHALATION EVERY 6 HRS TAKING ONE DAILY COMPLETE FOR MEN - TABLET 1 TABLET ORALLY DAILY TAKING METFORMIN HCL 1000 MG TABLET 1 TABLET WITH A MEAL ORALLY ONCE A DAY TAKING ATORVASTATIN CALCIUM 20 MG TABLET 1 TABLET ORALLY ONCE A DAY TAKING COLACE 100 MG CAPSULE 1 CAPSULE ORALLY BID NEEDED FOR CONSTIPATION MDD2 TAKING TRAZODONE HCL 100 MG TABLET 1 TABLET AT BEDTIME ORALLY ONCE A DAY TAKING BUPROPION HCL ER (XL) 150 MG TABLET EXTENDED RELEASE 24 HOUR 1 TABLET IN THE MORNING ORALLY ONCE A DAY TAKING GABAPENTIN 300 MG CAPSULE 1 CAPSULE ORALLY THREE TIMES DAILY, NOTES: HAS NOT BEEN TAKING STATES HE DOES NOT HAVE IT TAKING HYDROCODONE-ACETAMINOPHEN 7.5-325 MG TABLET 1 TABLET NEEDED ORALLY Q4-6H PRN PAIN MDD6 TAKING STEEL ROLLING WALKER - MISCELLANEOUS DIRECTED M54. 16 _ NOT-TAKING NORCO 7.5-325 MG TABLET 1 TABLET ORALLY EVERY 4 HRS PRN PAIN MDD=6, NOTES: DUPLICATE NOT-TAKING HYDROCODONE-ACETAMINOPHEN 7.5-325 MG TABLET 1 TABLET NEEDED ORALLY Q4-6H PRN MDD6 NOT-TAKING AMOXICILLIN-POT CLAVULANATE 875-125 MG TABLET 1 TABLET ORALLY EVERY 12 HRS NOT-TAKING AMITRIPTYLINE HCL 50 MG TABLET 1 TABLET ORALLY ONCE A DAY MEDICATION LIST REVIEWED AND RECONCILED WITH THE PATIENT PAST MEDICAL HISTORY LOW BACK PAIN KIDNEY STONES BLADDER CANCER LEFT LEG WEAKNESS AFTER PROCEDURE HTN PNEUMONIA ELEVATED CHOLESTEROL DEPRESSION ALLERGIES MORPHINE SULFATE: HEADACHE - SIDE EFFECTS SURGICAL HISTORY LUMBAR SURGURY 2000 BLADDER SURGERY OR 09/2015 RIGHT HAND SURGERY AFTER CHAINSAW INJURY 1965 OR 1966 FAMILY HISTORY FATHER: 77 YRS, DIAGNOSED WITH HYPERTENSION, UNSPECIFIED HEART DISEASE, UNSPECIFIED CEREBRAL ARTERY OCCLUSION WITH CEREBRAL INFARCTION MOTHER: 83 YRS, HEART DISEASE, DIABETES 1 SON(S) - HEALTHY. DAD-CHF, OVER WEIGHT\\N1 SON AFTER 4 TRUJILLO ACCIDENT. SOCIAL HISTORY GENERAL: TOBACCO USE ARE YOU A:FORMER SMOKER HOW LONG HAS IT BEEN SINCE YOU LAST SMOKED?1-5 YEARS LATEX QUESTIONNAIRE LATEX ALLERGY : HAVE YOU EVER DEVELOPED ANY TYPE OF REACTION AFTER HANDLING LATEX PRODUCTS SUCH RUBBER GLOVES, CONDOMS, DIAPHRAGMS, BALLOONS, SOCKS, OR UNDERWEAR?NO LATEX ALLERGY : HAVE YOU EVER DEVELOPED ANY TYPE OF REACTION DURING OR AFTER DENTAL APPOINTMENT, VAGINAL/RECTAL EXAMINATION, SURGICAL PROCEDURE, OR ANY OTHER EXPOSURE?NO LATEX RISK : HAVE YOU EVER HAD ANY DIFFICULTY BREATHING OR HIVES AFTER EATING OR HANDLING ANY FRUITS, OR VEGETABLES; SUCH KIWI, BANANAS, STONE FRUITS, OR CHESTNUTSNO LATEX RISK : DO YOU HAVE A PREVIOUS PERSONAL HISTORY OF MORE THAN NINE SURGERIES, SPINA BIFIDA, OR REPEATED CATHERIZATIONS? NO LATEX RISK : ARE YOU FREQUENTLY EXPOSED TO LATEX PRODUCTS IN YOUR OCCUPATION?NO DATE ASKED : 02/05/2020 ALCOHOL SCREENING DID YOU HAVE A DRINK CONTAINING ALCOHOL IN THE PAST YEAR?NO POINTS0 INTERPRETATIONNEGATIVE RECREATIONAL DRUG USE DRUG USE?NO CAFFEINE CAFFEINE USE?YES HOW OFTEN AND HOW MUCH? CUP OF COFFEE/DAY UATSDIN [id number] HOAHAOISM LANGUAGE LANGUAGES SPOKEN:KYRGYZ LEARNING BARRIERS / SPECIAL NEEDS CHANGE FROM LAST VISIT?NO BARRIERS TO LEARNING?NO HEARING IMPAIRED?NO VISION IMPAIRED?YES :CORRECTIVE LENSES COGNITIVELY IMPAIRED?NO READINESS TO LEARN?YES LEARNING PREFERENCES?YES :BOOKLETS, HANDOUTS LEARNING CAPABILITIES PRESENT?YES EMOTIONAL BARRIERS?NO SPECIAL DEVICES?YES :CANE, WALKER COPING MACHINE OPERATOR NEEDED?NO DOMESTIC VIOLENCE DO YOU FEEL SAFE IN YOUR ENVIRONMENT?YES PAIN CLINIC PFS, CLERGY, PUBLIC HEALTH REFERRALS PFS REFERRAL NEEDED?NO CLERGY REFERRAL NEEDED?NO PUBLIC HEALTH REFERRAL NEEDED?NO WAS THE PROVIDER NOTIFIED OF ANY PERTINENT INFO? N/A HAS THE PATIENT BEEN EDUCATED REGARDING HIS/HER PLAN OF CARE?YES HAS THE PATIENT BEEN EDUCATED REGARDING PAIN, THE RISK FOR PAIN, THE IMPORTANCE OF EFFECTIVE PAIN MANAGEMENT, AND THE PAIN ASSESSMENT PROCESS?YES ADVANCE DIRECTIVE ADVANCE DIRECTIVE DISCUSSED WITH PATIENT:YES NO HCP ON FILE, PATIENT DECLINED HCP ASSISTANCE OR INFORMATION. HOSPITALIZATION/MAJOR DIAGNOSTIC PROCEDURE SURGERIES LEFT LEG WEAKNESS AFTER PROCEDURE DIFFICULTY AMBULATING 01/2020 REVIEW OF SYSTEMS CONSTITUTIONAL: ANY RECENT FEVER NO . CHILLS NO . WEIGHT CHANGE OF UNKNOWN REASONS NO . GASTROENTEROLOGY: NEW UNEXPLAINABLE CHANGES IN BOWEL CONTROL NO . CONSTIPATION NO . GENITOURINARY: ANY NEW CHANGE IN BLADDER CONTROL? NO . NEUROLOGY: NEW ONSET DIZZINESS OR NEUROLOGICAL CHANGES NOT MENTIONED NO . NEW NUMBNESS OR PAIN PATTERNS NOT MENTIONED AND PERTINENT TO TODAY'S VISIT NO . CARDIOLOGY: NEW CHEST PRESSURE NO . NEW CHEST PAIN NO . RESPIRATORY: UNEXPLAINABLE COUGH NO . NEW SHORTNESS OF BREATH NO . VITAL SIGNS WT 226.0 LBS, HT 71", BMI 31.52 INDEX, BP 130/87 MM HG, HR 94 /MIN, RR 18 /MIN, TEMP 97.9 F, OXYGEN SAT % 97%, SAFE IN ENV? (Y/N) Y, NA INITIALS AW 1425, REVIEWED BY: JSJ. CON RN. EXAMINATION GENERAL EXAMINATION: LUNGS:LUNG SOUNDS ARE CLEAR. HEART:HEART RATE REGULAR. MUSCULOSKELETAL:*, MUSCLE STRENGTH TESTING 5/5 RIGHT AND 3/5 LEFT.MUSCLE STRENGTH TESTING OVER LEFT LEG AGGREVATES PAIN. POSITIVE AMY TEST OVER LEFT LEG.SPECIFIC POINT TENDERNESS OVER L SIJ. PALPATION: + FOR PAIN OVER L/S SPINE. + FOR PAIN OVER LEFT L/S PARSPINALS.WELL HEALED SURGICAL SCAR L/S AXIS. DIAGNOSTIC: . ASSESSMENTS LUMBAR RADICULOPATHY - M54.16 (PRIMARY) CHRONIC PRESCRIPTION OPIATE USE - Z79.891 POST LAMINECTOMY SYNDROME - M96.1 TREATMENT LUMBAR RADICULOPATHY CONTINUE COLACE CAPSULE, 100 MG, 1 CAPSULE, ORALLY, BID NEEDED FOR CONSTIPATION MDD2 CONTINUE GABAPENTIN CAPSULE, 300 MG, 1 CAPSULE, ORALLY, TWICE DAILY, 30 DAYS, 60, REFILLS 5, NOTES: HAS NOT BEEN TAKING STATES HE DOES NOT HAVE IT REFILL HYDROCODONE-ACETAMINOPHEN TABLET, 7.5-325 MG, 1 TABLET NEEDED, ORALLY, Q4-6H PRN PAIN MDD6, 30 DAYS, 180, REFILLS 0 NOTES: ISTOP REGISTRY REVIEWED AND DEMONSTRATES COMPLLIANCE. BRINGS IN MEDICATIONS WHICH IS APPROPRIATE FOR WHAT WAS DISPENSED. RECENT URINE TOXICOLOGY REVIEWED. NO UNAUTHORIZED MEDICATIONS. NO ILLICIT SUBSTANCES AND PRESCRIBED MEDICATIONS WERE PRESENT. UTOX TODAY , RISKS OF NARCOTIC/OPIOD MEDICATIONS INCLUDES BUT IS NOT LIMITED TO RISK OF DEPENDANCE/DEVELOPMENT OF ADDICTION, MOOD DISTURBANCE AND DEPRESSION, OSTEOPOROSIS, HORMONAL AND LABIDAL CHANGES, RESPIRATORY DEPRESSION AND . PATIENT IS ADVISED NOT TO DRIVE OR DRINK ALCOHOL WHILE ON THESE MEDICATIONS. PROCEDURES PN WORKMANS' COMP OPINION IN YOUR OPINION, WAS THE INCIDENT THAT THE PATIENT DESCRIBED THE COMPETENT MEDICAL CAUSE OF THIS INJURY/ILLNESS? YES ARE THE PATIENT'S COMPLAINTS CONSISTENT WITH HIS/HER HISTORY OF THE INJURY/ILLNESS? YES IS THE PATIENT'S HISTORY OF THE INJURY/ILLNESS CONSISTENT WITH YOUR OBJECTIVE FINDING? YES WHAT IS THE PERCENTAGE OF TEMPORARY IMPAIRMENT? MODERATE TO MARKED = 66.7% IS THE PATIENT WORKING? NO DOCTOR ON SITE: IMANI NGUYEN MD PROCEDURE CODES FA211 ESTABILISHED PATIENT [facility] CHARGE DISPOSITION & COMMUNICATION FOLLOW UP 3 MONTHS (REASON: W/C LOW BACK/MED MGMNT/REVIEW UTOX RESULTS/CHECK ON PLANS W DR SCHULTE TESTING) ELECTRONICALLY SIGNED BY ALETA MACIEL ON 02/26/2020 AT 03:18 PM EST DISCLAIMER : THIS IS A VISIT SUMMARY EXTRACTED FROM THE [email or web address] CHART. IT IS NOT A COPY OF THE [email or web address] PROGRESS NOTE. ANGELO
== END ==
LOC: M PAIN 14:00
PROVIDERS: ATTEND Nurse Practitioner Family
DX: M54.16 Radiculopathy, lumbar region (principal); M96.1 Postlaminectomy syndrome, not elsewhere classified; Z86.59 Personal history of other mental and behavioral disorders; Z87.891 Personal history of nicotine dependence; Z88.5 Allergy status to narcotic agent; Z79.899 Other long term (current) drug therapy

== ENCOUNTER → 2020-06-15 | Outpatient (CLI) | payer OTHER ==
[~2020-06-15] MED LIST changes: +GABA-282 PO; -GABA-843 PO
--- NOTE | 2020-06-22 01:49 | ECWPNPC ---
PATIENT NAME: ISAIAH LAWTON : 1955 GENDER: MALE VISIT DATE: 06/15/2020 DISCHARGE DATE: 06/15/20 1200 VISIT LOCKED DATE TIME: PHYSICIAN: TEDDY YUN RESOURCE: TEDDY YUN REASON FOR APPOINTMENT 1. LOW BACK/MED MGMNT/REVIEW UTOX RESULTS/CHECK ON PLANS W DR SCHULTE TESTING HISTORY OF PRESENT ILLNESS PAIN CENTER INTAKE QUESTIONS: DO YOU HAVE A HISTORY OF MRSA? :NO DO YOU TAKE A BLOOD THINNERS? :NO DO YOU HAVE ANY BLEEDING DISORDERS? :NO ANY NEW NUMBNESS OR WEAKNESS IN YOUR LEGS OR ARMS? :YES LEFT LEG ANY PACEMAKER,DEFIBRILLATOR, OR DORSAL COLUMN STIMULATOR? :NO DO YOU HAVE ANY RASHES OR OPEN SORES? :NO ARE YOU ALLERGIC TO IV DYE? :NO ARE YOU DIABETIC? :YES BORDERLINE ANY NEW PROBLEMS WITH YOUR MEDICATIONS? :NO HAVE YOU RECEIVED A VACCINE IN THE PAST 30 DAYS? :YES IF SO WHAT VACCINE AND WHEN? COVID VACCINE #2 NOT SURE OF DATE DO YOU PLAN TO RECEIVE A VACCINE IN THE NEXT 21 DAYS? :NO DO YOU NEED ANY PRESCRIPTION? :NO DO YOU TAKE ANY IMMUNOSUPPRESSIVE MEDICATIONS? :NO DO YOU HAVE ANY KIDNEY OR LIVER DISEASE? :YES RIGHT KIDNEY STONE AND KIDNEY SCAR TISSUE, SCHEDULED TO SEE BRAND ACTIVATION MANAGER 06/20/20 IS THERE A CHANCE YOU COULD BE ? :NO ARE YOU BREAST FEEDING? :NO GENERAL: HERE FOR FOLLOW-UP OF CHRONIC LOW BACK PAIN/LEFT LEG PAIN. HISTORY OF POSTLAMINECTOMY PAIN SYNDROME. THIS IS A WORK RELATED INJURY WITH DATE OF INJURY 1993.DR MAYO IS WAITING FOR DR MERCADO EVALUATION OF RECENT IMAGING OF SPINE.HE DOESNT APPEAR UNCOMFORTABLE BUT WALKS WITH A SLOW ,ANTAGIC/GUARDED GAIT. FINDS CURRENT CHRONIC PAIN MEDICATION EFFECTIVE AT REDUCING PAIN AND KEEPING HIM FUNCTIONAL. DENIES ADVERSE SIDE EFFECTS OF MEDICATION. - -. FALL RISK SCREENING: SCREENING : NO FALLS REPORTED IN THE LAST YEAR. PAIN SCREENING: PATIENT HAS A COMPLAINT OF ACUTE OR CHRONIC PAIN :YES LOCATION OF PAIN:LOW BACK, LEFT HIP INTENSITY OF PAIN (SCALE OF 1 TO 10):9 WHAT DOES YOUR PAIN FEEL LIKE:ACHING DURATION:CONTINOUS, CONSTANT PAIN IS INCREASED BY:ACTIVITIES PAIN IS DECREASED BY:USE OF PAIN MEDICATIONS NURSING NOTE: -. CURRENT MEDICATIONS TAKING OMEPRAZOLE 20 MG CAPSULE DELAYED RELEASE 1 CAPSULE ORALLY ONCE A DAY TAKING LOSARTAN POTASSIUM 50 MG TABLET 1 TABLET ORALLY ONCE A DAY TAKING LEVOCETIRIZINE DIHYDROCHLORIDE 5 MG TABLET 1 TABLET IN THE EVENING ORALLY ONCE A DAY TAKING FENOFIBRATE MICRONIZED 134 MG CAPSULE 1 CAPSULE WITH A MEAL ORALLY ONCE A DAY TAKING VENTOLIN HFA 108 (90 BASE) MCG/ACT AEROSOL SOLUTION 2 PUFFS NEEDED INHALATION EVERY 6 HRS TAKING ONE DAILY COMPLETE FOR MEN - TABLET 1 TABLET ORALLY DAILY TAKING METFORMIN HCL 1000 MG TABLET 1 TABLET WITH A MEAL ORALLY ONCE A DAY TAKING TRAZODONE HCL 100 MG TABLET 1 TABLET AT BEDTIME ORALLY ONCE A DAY TAKING BUPROPION HCL ER (XL) 150 MG TABLET EXTENDED RELEASE 24 HOUR 1 TABLET IN THE MORNING ORALLY ONCE A DAY TAKING STEEL KEYONNA WALKER - MISCELLANEOUS DIRECTED M54. 16 _ TAKING COLACE 100 MG CAPSULE 1 CAPSULE ORALLY BID NEEDED FOR CONSTIPATION MDD2 TAKING GABAPENTIN 300 MG CAPSULE 1 CAPSULE ORALLY TWICE DAILY, NOTES: HAS NOT BEEN TAKING STATES HE DOES NOT HAVE IT TAKING HYDROCODONE-ACETAMINOPHEN 7.5-325 MG TABLET 1 TABLET NEEDED ORALLY Q4-6H PRN PAIN MDD6 NOT-TAKING ATORVASTATIN CALCIUM 20 MG TABLET 1 TABLET ORALLY ONCE A DAY NOT-TAKING NORCO 7.5-325 MG TABLET 1 TABLET ORALLY EVERY 4 HRS PRN PAIN MDD=6, NOTES: DUPLICATE NOT-TAKING HYDROCODONE-ACETAMINOPHEN 7.5-325 MG TABLET 1 TABLET NEEDED ORALLY Q4-6H PRN MDD6 NOT-TAKING AMOXICILLIN-POT CLAVULANATE 875-125 MG TABLET 1 TABLET ORALLY EVERY 12 HRS NOT-TAKING AMITRIPTYLINE HCL 50 MG TABLET 1 TABLET ORALLY ONCE A DAY MEDICATION LIST REVIEWED AND RECONCILED WITH THE PATIENT PAST MEDICAL HISTORY LOW BACK PAIN KIDNEY STONES BLADDER CANCER LEFT LEG WEAKNESS AFTER PROCEDURE HTN PNEUMONIA ELEVATED CHOLESTEROL DEPRESSION ALLERGIES MORPHINE SULFATE: HEADACHE - SIDE EFFECTS SOCIAL HISTORY GENERAL: TOBACCO USE ARE YOU A:FORMER SMOKER HOW LONG HAS IT BEEN SINCE YOU LAST SMOKED?1-5 YEARS LATEX QUESTIONNAIRE LATEX ALLERGY : HAVE YOU EVER DEVELOPED ANY TYPE OF REACTION AFTER HANDLING LATEX PRODUCTS SUCH RUBBER GLOVES, CONDOMS, DIAPHRAGMS, BALLOONS, SOCKS, OR UNDERWEAR?NO LATEX ALLERGY : HAVE YOU EVER DEVELOPED ANY TYPE OF REACTION DURING OR AFTER DENTAL APPOINTMENT, VAGINAL/RECTAL EXAMINATION, SURGICAL PROCEDURE, OR ANY OTHER EXPOSURE?NO DATE ASKED : 02/05/2020 LATEX RISK : HAVE YOU EVER HAD ANY DIFFICULTY BREATHING OR HIVES AFTER EATING OR HANDLING ANY FRUITS, OR VEGETABLES; SUCH KIWI, BANANAS, STONE FRUITS, OR CHESTNUTSNO LATEX RISK : DO YOU HAVE A PREVIOUS PERSONAL HISTORY OF MORE THAN NINE SURGERIES, SPINA BIFIDA, OR REPEATED CATHERIZATIONS? NO LATEX RISK : ARE YOU FREQUENTLY EXPOSED TO LATEX PRODUCTS IN YOUR OCCUPATION?NO ALCOHOL SCREENING DID YOU HAVE A DRINK CONTAINING ALCOHOL IN THE PAST YEAR?NO POINTS0 INTERPRETATIONNEGATIVE RECREATIONAL DRUG USE DRUG USE?NO CAFFEINE CAFFEINE USE?YES HOW OFTEN AND HOW MUCH? CUP OF COFFEE/DAY CHEONDOISM [id number] [employer]TH[employer]OX LANGUAGE LANGUAGES SPOKEN:BELARUSIAN LEARNING BARRIERS / SPECIAL NEEDS CHANGE FROM LAST VISIT?NO BARRIERS TO LEARNING?NO HEARING IMPAIRED?NO VISION IMPAIRED?YES COGNITIVELY IMPAIRED?NO :CORRECTIVE LENSES READINESS TO LEARN?YES LEARNING PREFERENCES?YES :BOOKLETS, HANDOUTS LEARNING CAPABILITIES PRESENT?YES EMOTIONAL BARRIERS?NO SPECIAL DEVICES?YES :CANE, WALKER RESTAURANT HOURLY TEAM MEMBER NEEDED?NO DOMESTIC VIOLENCE DO YOU FEEL SAFE IN YOUR ENVIRONMENT?YES - PFS REFERRAL NEEDED?NO CLERGY REFERRAL NEEDED?NO PUBLIC HEALTH REFERRAL NEEDED?NO WAS THE PROVIDER NOTIFIED OF ANY PERTINENT INFO? N/A HAS THE PATIENT BEEN EDUCATED REGARDING HIS/HER PLAN OF CARE?YES HAS THE PATIENT BEEN EDUCATED REGARDING PAIN, THE RISK FOR PAIN, THE IMPORTANCE OF EFFECTIVE PAIN MANAGEMENT, AND THE PAIN ASSESSMENT PROCESS?YES ADVANCE DIRECTIVE ADVANCE DIRECTIVE DISCUSSED WITH PATIENT:YES NO HCP ON FILE, PATIENT DECLINED HCP ASSISTANCE OR INFORMATION. REVIEW OF SYSTEMS CONSTITUTIONAL: ANY RECENT FEVER NO . CHILLS NO . WEIGHT CHANGE OF UNKNOWN REASONS NO . GASTROENTEROLOGY: NEW UNEXPLAINABLE CHANGES IN BOWEL CONTROL NO . CONSTIPATION NO . GENITOURINARY: ANY NEW CHANGE IN BLADDER CONTROL? NO . NEUROLOGY: NEW ONSET DIZZINESS OR NEUROLOGICAL CHANGES NOT MENTIONED NO . NEW NUMBNESS OR PAIN PATTERNS NOT MENTIONED AND PERTINENT TO TODAY'S VISIT NO . CARDIOLOGY: NEW CHEST PRESSURE NO . PATIENT DENIES NO . RESPIRATORY: UNEXPLAINABLE COUGH NO . NEW SHORTNESS OF BREATH NO . VITAL SIGNS WT 220.6 LBS, HT 71", BMI 30.76 INDEX, BP 119/84 MM HG, HR 77 /MIN, RR 20 /MIN, TEMP 97.2 F, OXYGEN SAT % 99%, SAFE IN ENV? (Y/N) Y, NA INITIALS SC 11:00, REVIEWED BY: EM. EXAMINATION GENERAL EXAMINATION: GENERALAWAKE,ALERT ,PLEASANT . PSYCHAFFECT NORMAL . LUNGS:LUNG ZACARIAS ARE CLEAR TO AUSCULTATION BILATERALLY. GOOD MOVEMENT OF AIR . HEART:S1, S2 IN A REGULAR RATE AND RHYTHM. NO SIGNIFICANT MURMURS, RUBS OR GALLOPS NOTED . ASSESSMENTS LUMBAR RADICULOPATHY - M54.16 (PRIMARY) TREATMENT LUMBAR RADICULOPATHY CONTINUE COLACE CAPSULE, 100 MG, 1 CAPSULE, ORALLY, BID NEEDED FOR CONSTIPATION MDD2 CONTINUE GABAPENTIN CAPSULE, 300 MG, 1 CAPSULE, ORALLY, TWICE DAILY, NOTES: HAS NOT BEEN TAKING STATES HE DOES NOT HAVE IT CONTINUE HYDROCODONE-ACETAMINOPHEN TABLET, 7.5-325 MG, 1 TABLET NEEDED, ORALLY, Q4-6H PRN PAIN MDD6 NOTES: CONTINUE WITH F/U APPOINTMENTS AND TESTING PER DR SCHULTE REGARDING LEFT HIP . , ISTOP REGISTRY REVIEWED AND DEMONSTRATES COMPLLIANCE. BRINGS IN MEDICATIONS WHICH IS APPROPRIATE FOR WHAT WAS DISPENSED. RECENT URINE TOXICOLOGY REVIEWED. NO UNAUTHORIZED MEDICATIONS. NO ILLICIT SUBSTANCES AND PRESCRIBED MEDICATIONS WERE PRESENT. , RISKS OF NARCOTIC/OPIOD MEDICATIONS INCLUDES BUT IS NOT LIMITED TO RISK OF DEPENDANCE/DEVELOPMENT OF ADDICTION, MOOD DISTURBANCE AND DEPRESSION, OSTEOPOROSIS, HORMONAL AND LABIDAL CHANGES, RESPIRATORY DEPRESSION AND . PATIENT IS ADVISED NOT TO DRIVE OR DRINK ALCOHOL WHILE ON THESE MEDICATIONS. PROCEDURES PN WORKMANS' COMP OPINION IN YOUR OPINION, WAS THE INCIDENT THAT THE PATIENT DESCRIBED THE COMPETENT MEDICAL CAUSE OF THIS INJURY/ILLNESS? YES ARE THE PATIENT'S COMPLAINTS CONSISTENT WITH HIS/HER HISTORY OF THE INJURY/ILLNESS? YES IS THE PATIENT'S HISTORY OF THE INJURY/ILLNESS CONSISTENT WITH YOUR OBJECTIVE FINDING? YES WHAT IS THE PERCENTAGE OF TEMPORARY IMPAIRMENT? MODERATE TO MARKED = 66.7% IS THE PATIENT WORKING? NO DOCTOR ON SITE: IMANI NGUYEN MD PROCEDURE CODES FA211 ESTABILISHED PATIENT [facility] CHARGE DISPOSITION & COMMUNICATION FOLLOW UP 3 MONTHS (REASON: W/C F/U LEFT LOW BACK/CHECK ON DR SCHULTE TESTING OF LEFT HIP?AVASCULAR NECROSOS/CHECK ON KIDNEY F/U) ELECTRONICALLY SIGNED BY ALETA MACIEL ON 06/21/2020 AT 03:54 PM EDT DISCLAIMER : THIS IS A VISIT SUMMARY EXTRACTED FROM THE [facility] CHART. IT IS NOT A COPY OF THE [facility] PROGRESS NOTE. ANGELO
== END ==
LOC: M PAIN 11:00
PROVIDERS: ATTEND Nurse Practitioner Family
DX: M54.16 Radiculopathy, lumbar region (principal); G89.29 Other chronic pain; Z86.59 Personal history of other mental and behavioral disorders; Z87.891 Personal history of nicotine dependence; Z88.5 Allergy status to narcotic agent; Z79.84 Long term (current) use of oral hypoglycemic drugs; Z79.899 Other long term (current) drug therapy

== ENCOUNTER → 2020-09-14 | Outpatient (CLI) | payer OTHER ==
[~2020-09-14] MED LIST changes: +OMEP40CA4 PO; -OMEP40CA97 PO
--- NOTE | 2020-09-15 04:31 | ECWPNPC ---
PATIENT NAME: ISAIAH LAWTON : 1955 GENDER: MALE VISIT DATE: 09/14/2020 DISCHARGE DATE: 09/14/20 1002 VISIT LOCKED DATE TIME: PHYSICIAN: TEDDY YUN RESOURCE: TEDDY YUN REASON FOR APPOINTMENT 1. W/C F/U LEFT LOW BACK/CHECK ON DR SCHULTE TESTING OF LEFT HIP?AVASCULAR NECROSOS/CHECK ON KIDNEY F/U HISTORY OF PRESENT ILLNESS DEPRESSION SCREENING: PHQ-2 (2015 EDITION) LITTLE INTEREST OR PLEASURE IN DOING THINGS?NOT AT ALL FEELING DOWN, DEPRESSED, OR HOPELESS?SEVERAL DAYS TOTAL SCORE1 GENERAL: SLOAN IS HERE FOR FOLLOW-UP OF PERSISTENT LOW BACK PAIN AND MEDICATION MANAGEMENT. HE IS FOLLOWING WITH DR. WOODS IN REGARDS TO LEFT HIP PAIN AND STATES HE IS SCHEDULED FOR SOME TESTING IN THE NEAR FUTURE AND MAY HAVE TO HAVE ANOTHER SURGERY ON HIS LEFT HIP. ALSO HAVING ISSUES WITH KIDNEY STONES AND RIGHT LOW BACK PAIN ASSOCIATED WITH KIDNEY STONES. HE WILL BE SEEING NEPHROLOGY IN THE NEAR FUTURE. OVERALL FINDS CURRENT MEDICATION HELPFUL AT REDUCING PAIN AND KEEPING HIM FUNCTIONAL. DENIES ADVERSE SIDE EFFECTS WITH MEDICATIONS. BRINGS IN HIS MEDICATION WHICH IS APPROPRIATE FOR WHAT WAS DISPENSED. THIS IS A WORK-RELATED INJURY. -. FALL RISK SCREENING: SCREENING : NO FALLS REPORTED IN THE LAST YEAR. PAIN SCREENING: PATIENT HAS A COMPLAINT OF ACUTE OR CHRONIC PAIN :YES LOCATION OF PAIN:LOW BACK, LEG(S) INTENSITY OF PAIN (SCALE OF 1 TO 10):8 WHAT DOES YOUR PAIN FEEL LIKE:CONTINOUS DURATION:CONTINOUS, CONSTANT PAIN IS INCREASED BY:PROLONGED STANDING, OTHERS WALKING PAIN IS DECREASED BY:SITTING, OTHERS RESTING NURSING NOTE: -. PAIN CENTER INTAKE QUESTIONS: DO YOU HAVE A HISTORY OF MRSA? :NO DO YOU TAKE A BLOOD THINNERS? :NO DO YOU HAVE ANY BLEEDING DISORDERS? :NO ANY NEW NUMBNESS OR WEAKNESS IN YOUR LEGS OR ARMS? :YES LEFT LEG ANY PACEMAKER,DEFIBRILLATOR, OR DORSAL COLUMN STIMULATOR? :NO DO YOU HAVE ANY RASHES OR OPEN SORES? :NO ARE YOU ALLERGIC TO IV DYE? :NO ARE YOU DIABETIC? :YES BORDERLINE ANY NEW PROBLEMS WITH YOUR MEDICATIONS? :NO HAVE YOU RECEIVED A VACCINE IN THE PAST 30 DAYS? :YES IF SO WHAT VACCINE AND WHEN? COVID VACCINE #2 NOT SURE OF DATE DO YOU PLAN TO RECEIVE A VACCINE IN THE NEXT 21 DAYS? :NO DO YOU NEED ANY PRESCRIPTION? :NO DO YOU TAKE ANY IMMUNOSUPPRESSIVE MEDICATIONS? :NO DO YOU HAVE ANY KIDNEY OR LIVER DISEASE? :YES RIGHT KIDNEY STONE AND KIDNEY SCAR TISSUE, SCHEDULED TO SEE DREDGE RUNNER 06/20/20 IS THERE A CHANCE YOU COULD BE ? :NO ARE YOU BREAST FEEDING? :NO CURRENT MEDICATIONS TAKING OMEPRAZOLE 20 MG CAPSULE DELAYED RELEASE 1 CAPSULE ORALLY ONCE A DAY TAKING LOSARTAN POTASSIUM 50 MG TABLET 1 TABLET ORALLY ONCE A DAY TAKING LEVOCETIRIZINE DIHYDROCHLORIDE 5 MG TABLET 1 TABLET IN THE EVENING ORALLY ONCE A DAY TAKING FENOFIBRATE MICRONIZED 134 MG CAPSULE 1 CAPSULE WITH A MEAL ORALLY ONCE A DAY TAKING VENTOLIN HFA 108 (90 BASE) MCG/ACT AEROSOL SOLUTION 2 PUFFS NEEDED INHALATION EVERY 6 HRS TAKING ONE DAILY COMPLETE FOR MEN - TABLET 1 TABLET ORALLY DAILY TAKING METFORMIN HCL 1000 MG TABLET 1 TABLET WITH A MEAL ORALLY ONCE A DAY TAKING TRAZODONE HCL 100 MG TABLET 1 TABLET AT BEDTIME ORALLY ONCE A DAY TAKING BUPROPION HCL ER (XL) 150 MG TABLET EXTENDED RELEASE 24 HOUR 1 TABLET IN THE MORNING ORALLY ONCE A DAY TAKING JEREMÍAS NEWBY WALKER - MISCELLANEOUS DIRECTED M54. 16 _ TAKING COLACE 100 MG CAPSULE 1 CAPSULE ORALLY BID NEEDED FOR CONSTIPATION MDD2 TAKING GABAPENTIN 300 MG CAPSULE 1 CAPSULE ORALLY TWICE DAILY, NOTES: HAS NOT BEEN TAKING STATES HE DOES NOT HAVE IT TAKING HYDROCODONE-ACETAMINOPHEN 7.5-325 MG TABLET 1 TABLET NEEDED ORALLY Q4-6H PRN PAIN MDD6 TAKING ATORVASTATIN CALCIUM 20 MG TABLET 1 TABLET ORALLY ONCE A DAY NOT-TAKING ATORVASTATIN CALCIUM 20 MG TABLET 1 TABLET ORALLY ONCE A DAY NOT-TAKING NORCO 7.5-325 MG TABLET 1 TABLET ORALLY EVERY 4 HRS PRN PAIN MDD=6, NOTES: DUPLICATE NOT-TAKING HYDROCODONE-ACETAMINOPHEN 7.5-325 MG TABLET 1 TABLET NEEDED ORALLY Q4-6H PRN MDD6 NOT-TAKING AMOXICILLIN-POT CLAVULANATE 875-125 MG TABLET 1 TABLET ORALLY EVERY 12 HRS NOT-TAKING AMITRIPTYLINE HCL 50 MG TABLET 1 TABLET ORALLY ONCE A DAY MEDICATION LIST REVIEWED AND RECONCILED WITH THE PATIENT PAST MEDICAL HISTORY LOW BACK PAIN KIDNEY STONES BLADDER CANCER LEFT LEG WEAKNESS AFTER PROCEDURE HTN PNEUMONIA ELEVATED CHOLESTEROL DEPRESSION ALLERGIES MORPHINE SULFATE: HEADACHE - SIDE EFFECTS SURGICAL HISTORY LUMBAR SURGURY 2000 BLADDER SURGERY OR 09/2015 RIGHT HAND SURGERY AFTER [place] INJURY 1965 OR 1966 SOCIAL HISTORY GENERAL: TOBACCO USE ARE YOU A:FORMER SMOKER HOW LONG HAS IT BEEN SINCE YOU LAST SMOKED?1-5 YEARS LATEX QUESTIONNAIRE LATEX ALLERGY : HAVE YOU EVER DEVELOPED ANY TYPE OF REACTION AFTER HANDLING LATEX PRODUCTS SUCH RUBBER GLOVES, CONDOMS, DIAPHRAGMS, BALLOONS, SOCKS, OR UNDERWEAR?NO LATEX ALLERGY : HAVE YOU EVER DEVELOPED ANY TYPE OF REACTION DURING OR AFTER DENTAL APPOINTMENT, VAGINAL/RECTAL EXAMINATION, SURGICAL PROCEDURE, OR ANY OTHER EXPOSURE?NO LATEX RISK : HAVE YOU EVER HAD ANY DIFFICULTY BREATHING OR HIVES AFTER EATING OR HANDLING ANY FRUITS, OR VEGETABLES; SUCH KIWI, BANANAS, STONE FRUITS, OR CHESTNUTSNO LATEX RISK : DO YOU HAVE A PREVIOUS PERSONAL HISTORY OF MORE THAN NINE SURGERIES, SPINA BIFIDA, OR REPEATED CATHERIZATIONS? NO LATEX RISK : ARE YOU FREQUENTLY EXPOSED TO LATEX PRODUCTS IN YOUR OCCUPATION?NO DATE ASKED : 09/14/2020 ALCOHOL USE: YES, VERY [place]. ALCOHOL SCREENING DID YOU HAVE A DRINK CONTAINING ALCOHOL IN THE PAST YEAR?NO POINTS0 INTERPRETATIONNEGATIVE RECREATIONAL DRUG USE DRUG USE?NO CAFFEINE CAFFEINE USE?YES HOW OFTEN AND HOW MUCH? CUP OF COFFEE/DAY BAPTIST [id number] ZOROASTRIANISM LANGUAGE LANGUAGES SPOKEN:TAJIK LEARNING BARRIERS / SPECIAL NEEDS CHANGE FROM LAST VISIT?NO BARRIERS TO LEARNING?NO HEARING IMPAIRED?YES : SOMETIMES VISION IMPAIRED?YES :CORRECTIVE LENSES COGNITIVELY IMPAIRED?NO READINESS TO LEARN?YES LEARNING PREFERENCES?YES :BOOKLETS, HANDOUTS LEARNING CAPABILITIES PRESENT?YES EMOTIONAL BARRIERS?NO SPECIAL DEVICES?YES :CANE, WALKER SUBSTATION MANAGER NEEDED?NO DOMESTIC VIOLENCE DO YOU FEEL SAFE IN YOUR ENVIRONMENT?YES - PFS REFERRAL NEEDED?NO CLERGY REFERRAL NEEDED?NO PUBLIC HEALTH REFERRAL NEEDED?NO WAS THE PROVIDER NOTIFIED OF ANY PERTINENT INFO? N/A HAS THE PATIENT BEEN EDUCATED REGARDING HIS/HER PLAN OF CARE?YES HAS THE PATIENT BEEN EDUCATED REGARDING PAIN, THE RISK FOR PAIN, THE IMPORTANCE OF EFFECTIVE PAIN MANAGEMENT, AND THE PAIN ASSESSMENT PROCESS?YES ADVANCE DIRECTIVE ADVANCE DIRECTIVE DISCUSSED WITH PATIENT:YES NO HCP ON FILE, PATIENT DECLINED HCP ASSISTANCE OR INFORMATION. HOSPITALIZATION/MAJOR DIAGNOSTIC PROCEDURE SURGERIES LEFT LEG WEAKNESS AFTER PROCEDURE DIFFICULTY AMBULATING 01/2020 REVIEW OF SYSTEMS CONSTITUTIONAL: ANY RECENT FEVER NO . CHILLS NO . WEIGHT CHANGE OF UNKNOWN REASONS NO . GASTROENTEROLOGY: NEW UNEXPLAINABLE CHANGES IN BOWEL CONTROL NO . CONSTIPATION NO . GENITOURINARY: ANY NEW CHANGE IN BLADDER CONTROL? NO . NEUROLOGY: NEW ONSET DIZZINESS OR NEUROLOGICAL CHANGES NOT MENTIONED NO . NEW NUMBNESS OR PAIN PATTERNS NOT MENTIONED AND PERTINENT TO TODAY'S VISIT NO . CARDIOLOGY: NEW CHEST PRESSURE NO . PATIENT DENIES NO . RESPIRATORY: UNEXPLAINABLE COUGH NO . NEW SHORTNESS OF BREATH NO . VITAL SIGNS WT 228.8 LBS, HT 71", BMI 31.91 INDEX, BP 141/87 MM HG, HR 80 /MIN, RR 20 /MIN, TEMP 98.2 F, OXYGEN SAT % 96%, SAFE IN ENV? (Y/N) YES, NA INITIALS GA 09:14T.LOYD MCCALL. EXAMINATION GENERAL EXAMINATION: GENERALAWAKE,ALERT ,PLEASANT . PSYCHAFFECT NORMAL . LUNGS:LUNG ZACARIAS ARE CLEAR TO AUSCULTATION BILATERALLY. GOOD MOVEMENT OF AIR . HEART:S1, S2 IN A REGULAR RATE AND RHYTHM. NO SIGNIFICANT MURMURS, RUBS OR GALLOPS NOTED . 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 (PRIMARY) LUMBAR RADICULOPATHY - M54.16 TREATMENT CHRONIC PRESCRIPTION OPIATE USE CONTINUE COLACE CAPSULE, 100 MG, 1 CAPSULE, ORALLY, BID NEEDED FOR CONSTIPATION MDD2 CONTINUE GABAPENTIN CAPSULE, 300 MG, 1 CAPSULE, ORALLY, TWICE DAILY, NOTES: HAS NOT BEEN TAKING STATES HE DOES NOT HAVE IT REFILL HYDROCODONE-ACETAMINOPHEN TABLET, 7.5-325 MG, 1 TABLET NEEDED, ORALLY, Q4-6H PRN PAIN MDD6, 30 DAYS, 180, REFILLS 0 LAB: URINE TEST GROUP NAKITA HARP 09/14/2020 9:57:05 AM > LAST DOSE: HYDROCODONE 09/13/2020 @11PM , GABAPETIN 09/13/2020 @11PM NOTES: ISTOP REGISTRY REVIEWED AND DEMONSTRATES COMPLLIANCE. BRINGS IN MEDICATIONS WHICH IS APPROPRIATE FOR WHAT WAS DISPENSED. RECENT URINE TOXICOLOGY REVIEWED. NO UNAUTHORIZED MEDICATIONS. NO ILLICIT SUBSTANCES AND PRESCRIBED MEDICATIONS WERE PRESENT. , RISKS OF NARCOTIC/OPIOD MEDICATIONS INCLUDES BUT IS NOT LIMITED TO RISK OF DEPENDANCE/DEVELOPMENT OF ADDICTION, MOOD DISTURBANCE AND DEPRESSION, OSTEOPOROSIS, HORMONAL AND LABIDAL CHANGES, RESPIRATORY DEPRESSION AND . PATIENT IS ADVISED NOT TO DRIVE OR DRINK ALCOHOL WHILE ON THESE MEDICATIONS. PROCEDURES PN WORKMANS' COMP OPINION IN YOUR OPINION, WAS THE INCIDENT THAT THE PATIENT DESCRIBED THE COMPETENT MEDICAL CAUSE OF THIS INJURY/ILLNESS? YES ARE THE PATIENT'S COMPLAINTS CONSISTENT WITH HIS/HER HISTORY OF THE INJURY/ILLNESS? YES IS THE PATIENT'S HISTORY OF THE INJURY/ILLNESS CONSISTENT WITH YOUR OBJECTIVE FINDING? YES WHAT IS THE PERCENTAGE OF TEMPORARY IMPAIRMENT? MODERATE TO MARKED = 66.7% IS THE PATIENT WORKING? NO DOCTOR ON SITE: IMANI NGUYEN MD PROCEDURE CODES FA211 ESTABILISHED PATIENT [facility] CHARGE DISPOSITION & COMMUNICATION FOLLOW UP 3 MONTHS (REASON: MED MGMNT/REVIEW UTOX/CHECK ON DR WOODS VISIT FOR LEFT HIP/NOT OUR REFFERAL JUST A FOLLOW UP ON PROGRESS) ELECTRONICALLY SIGNED BY ALETA MACIEL ON 09/14/2020 AT 01:15 PM EDT DISCLAIMER : THIS IS A VISIT SUMMARY EXTRACTED FROM THE [employer] CHART. IT IS NOT A COPY OF THE [employer] PROGRESS NOTE. ANGELO
== END ==
LOC: M PAIN 09:15
PROVIDERS: ATTEND Nurse Practitioner Family
DX: M54.16 Radiculopathy, lumbar region (principal); Z86.59 Personal history of other mental and behavioral disorders; Z87.891 Personal history of nicotine dependence; Z88.5 Allergy status to narcotic agent; Z79.84 Long term (current) use of oral hypoglycemic drugs; Z79.899 Other long term (current) drug therapy

== ENCOUNTER → 2020-12-14 | Outpatient (CLI) | payer OTHER | LOC: M PAIN 09:15 | PROVIDERS: ATTEND Anesthesiology | DX: M51.17 Intervertebral disc disorders with radiculopathy, lumbosacral region (principal); G89.29 Other chronic pain; Z86.59 Personal history of other mental and behavioral disorders; Z87.891 Personal history of nicotine dependence; Z88.5 Allergy status to narcotic agent; Z79.899 Other long term (current) drug therapy ==

== ENCOUNTER → 2021-05-03 | Outpatient (CLI) | payer OTHER ==
[~2021-05-03] MED LIST changes: +LOSA50TA28 PO; -LOSA50TA88 PO
== END ==
LOC: M PAIN 09:45
PROVIDERS: ATTEND Nurse Practitioner Family
DX: M96.1 Postlaminectomy syndrome, not elsewhere classified (principal); Z86.59 Personal history of other mental and behavioral disorders; Z87.891 Personal history of nicotine dependence; Z88.5 Allergy status to narcotic agent; Z79.899 Other long term (current) drug therapy

== ENCOUNTER → 2021-06-01 | Outpatient (CLI) | payer OTHER ==
[~2021-06-01] MED LIST changes: -FENO134C PO; +FENO134C16 PO
== END ==
LOC: M PAIN 09:45
PROVIDERS: ATTEND Anesthesiology
DX: M96.1 Postlaminectomy syndrome, not elsewhere classified (principal); M79.18 Myalgia, other site; Z86.59 Personal history of other mental and behavioral disorders; Z87.891 Personal history of nicotine dependence; Z88.5 Allergy status to narcotic agent; Z79.899 Other long term (current) drug therapy

== ENCOUNTER → 2021-12-13 | Outpatient (CLI) | payer OTHER ==
[~2021-12-13] MED LIST changes: +BUPR-71 PO; -BUPR150T5 PO
== END ==
LOC: M PAIN 10:00
PROVIDERS: ATTEND Anesthesiology
DX: M96.1 Postlaminectomy syndrome, not elsewhere classified (principal); M79.10 Myalgia, unspecified site; G89.29 Other chronic pain; I10 Essential (primary) hypertension; Z86.59 Personal history of other mental and behavioral disorders; Z87.891 Personal history of nicotine dependence; Z88.5 Allergy status to narcotic agent; Z79.899 Other long term (current) drug therapy

== ENCOUNTER 2022-01-17 20:55 | Inpatient (IN) | payer OTHER, MEDICARE ==
[2022-01-17 22:19] LABS: BASO % 0.3 % (0.0-1.0); EOS % 0.1 % (0.0-3.0); HEMATOCRIT 43.6 % (42.0-52.0); HEMOGLOBIN 14.2 g/dl (13.5-17.5); LYMPH # 1.2 10^3/uL (1.5-5.0); LYMPH % 11.1 % (24.0-44.0); MEAN CORPUSCULAR HEMOGLOBIN 28.6 pg (27.0-33.0); MEAN CORPUSCULAR HGB CONC 32.6 g/dl (32.0-36.5); MEAN CORPUSCULAR VOLUME 87.9 fl (80.0-96.0); MONO # 0.4 10^3/uL (0.0-0.8); MONO % 3.5 % (2.0-8.0); NEUTROPHILS # 9.4 10^3/uL (1.5-8.5); NEUTROPHILS % 84.5 % (36.0-66.0); PLATELET COUNT, AUTOMATED 317 10^3/uL (150-450); RED BLOOD COUNT 4.96 10^6/uL (4.30-6.10); WHITE BLOOD COUNT 11.1 10^3/uL (4.0-10.0)
[2022-01-17 22:56] LABS: ACETAMINOPHEN LEVEL < 2.0 UG/ML (10.0-30.0); ALBUMIN 4.1 GM/DL (3.2-5.2); ALT/SGPT 45 U/L (12-78); BILIRUBIN,DIRECT < 0.1 MG/DL (0.0-0.2); BILIRUBIN,TOTAL 0.3 MG/DL (0.2-1.0); BLOOD UREA NITROGEN 22 MG/DL (7-18); CALCIUM LEVEL 9.3 MG/DL (8.8-10.2); CARBON DIOXIDE LEVEL 21 MEQ/L (21-32); CHLORIDE LEVEL 107 MEQ/L (98-107); CREATININE FOR GFR 1.51 MG/DL (0.70-1.30); ETHYL ALCOHOL (ETHANOL) < 0.003 % (0.000-0.010); GLOMERULAR FILTRATION RATE 49.5 (>49); GLUCOSE, FASTING 142 MG/DL (70-100); SALICYLATE LEVEL < 1.7 MG/DL (5.0-30.0); SODIUM LEVEL 137 MEQ/L (136-145)
[2022-01-17 23:01] LABS: OSMOLALITY SERUM 297 MOSM/KG (280-301)
[2022-01-17 23:31] LABS: AMPHETAMINES LEVEL URINE NEGATIVE (NEGATIVE); BARBITURATES URINE NEGATIVE (NEGATIVE); BENZODIAZEPINES URINE NEGATIVE (NEGATIVE); CANNABINOIDS URINE POSITIVE (NEGATIVE); COCAINE METABOLITE URINE NEGATIVE (NEGATIVE); METHADONE URINE NEGATIVE (NEGATIVE); OPIATES URINE NEGATIVE (NEGATIVE); PHENCYCLIDINE URINE NEGATIVE (NEGATIVE)
[2022-01-17 23:59] LABS: RSV AMPLIFICATION NEGATIVE (NEGATIVE)
[2022-01-18] MEDS ORDERED: GLUCAGON INJ 1MG VIAL SC PRN (01:50)
[2022-01-18] MEDS ORDERED: GLUCOSE 4GM CHEW TABLET PO PRN (01:50)
[2022-01-18] MEDS ORDERED: DEXTROSE 50% 50 ML SYRINGE IV PRN (01:50)
[2022-01-18 02:16] LABS: HEMOGLOBIN A1c 6.5 %
[2022-01-18] MEDS ORDERED: FENO160T10 PO (04:59)
[2022-01-18] MEDS ORDERED: VITMTA PO (04:59)
[2022-01-18] MEDS ORDERED: METF10004 PO (04:59)
[2022-01-18] MEDS ORDERED: HOME MED LIST COMPLETE! XX SCH (05:00)
[2022-01-18] MEDS ORDERED: HEPARIN SOD (PORCINE) 5000UNITS/ML 1ML VIAL/SYRINGE SQ SCH (06:00)
[2022-01-18] MEDS ORDERED: INSULIN LISPRO (NovoLOG) PER UNIT SC SCH ×2 (07:30→21:00)
[2022-01-18 09:12] LABS: CHOLESTEROL RISK RATIO 3.268 (<5)
[2022-01-18] MEDS ORDERED: GABA-282 PO (14:48)
[2022-01-18] MEDS ORDERED: ACET-897 PO (14:51)
[2022-01-18] MEDS ORDERED: LIDO5DIS41 TOP (14:51)
[2022-01-18 16:07] VITALS: BP 138/72
== END 2022-01-18 15:00 | disposition home or self-care (01) | DRG 861 ==
LOC: M ED 20:55 → EDBD 20:55 → M ED INP 23:53 → ENRESERV 01-18 06:57
PROVIDERS: ADMIT Family Medicine; ATTEND Family Medicine
DX: R53.83 Other fatigue (principal); E11.22 Type 2 diabetes mellitus with diabetic chronic kidney disease; N18.30 Chronic kidney disease, stage 3 unspecified; M54.50 Low back pain, unspecified; G89.29 Other chronic pain; I12.9 Hypertensive chronic kidney disease with stage 1 through stage 4 chronic kidney disease, or unspecified chronic kidney disease; E78.5 Hyperlipidemia, unspecified; Z86.16 Personal history of COVID-19; F32.A Depression, unspecified; K21.9 Gastro-esophageal reflux disease without esophagitis; Z85.51 Personal history of malignant neoplasm of bladder; Z87.891 Personal history of nicotine dependence; Z79.84 Long term (current) use of oral hypoglycemic drugs; Z79.899 Other long term (current) drug therapy; Z88.5 Allergy status to narcotic agent; T42.6X5A Adverse effect of other antiepileptic and sedative-hypnotic drugs, initial encounter; Z20.822 Contact with and (suspected) exposure to COVID-19

== ENCOUNTER → 2022-04-06 | Outpatient (CLI) | payer OTHER ==
[~2022-04-06] MED LIST changes: +ACET-897 PO; -FENO134C16 PO; +FENO134C20 PO; +FENO160T10 PO; +LIDO5DIS41 TOP; +VITMTA PO
== END ==
LOC: M PAIN 13:15
PROVIDERS: ATTEND Anesthesiology
DX: M96.1 Postlaminectomy syndrome, not elsewhere classified (principal); G89.29 Other chronic pain; E11.9 Type 2 diabetes mellitus without complications; I10 Essential (primary) hypertension; Z86.59 Personal history of other mental and behavioral disorders; Z87.891 Personal history of nicotine dependence; Z88.5 Allergy status to narcotic agent; Z79.84 Long term (current) use of oral hypoglycemic drugs; Z79.899 Other long term (current) drug therapy

== ENCOUNTER → 2022-04-11 | Outpatient (CLI) | payer MEDICARE | LOC: M RAD 10:39 | PROVIDERS: ATTEND Nurse Practitioner Family | DX: Z12.2 Encounter for screening for malignant neoplasm of respiratory organs (principal); Z87.891 Personal history of nicotine dependence ==

== ENCOUNTER → 2022-05-02 | Outpatient (REF) | payer MEDICARE | LOC: M LAB REF 17:16 | PROVIDERS: ATTEND Otolaryngology | DX: H61.121 Hematoma of pinna, right ear (principal) ==

== ENCOUNTER → 2022-06-22 | Outpatient (CLI) | payer OTHER | LOC: M PAIN 10:45 | PROVIDERS: ATTEND Anesthesiology | DX: M96.1 Postlaminectomy syndrome, not elsewhere classified (principal); G89.29 Other chronic pain; I10 Essential (primary) hypertension; Z86.59 Personal history of other mental and behavioral disorders; Z87.891 Personal history of nicotine dependence; Z88.5 Allergy status to narcotic agent; Z79.899 Other long term (current) drug therapy ==

== ENCOUNTER → 2022-08-22 | Outpatient (CLI) | payer MEDICARE | LOC: M PLAIMG 11:55 | PROVIDERS: ATTEND Registered Nurse | DX: R93.89 Abnormal findings on diagnostic imaging of other specified body structures (principal) ==

== ENCOUNTER → 2022-08-22 | Outpatient (CLI) | payer OTHER, MEDICARE | LOC: M PLAIMG 11:57 | PROVIDERS: ATTEND Anesthesiology | DX: M96.1 Postlaminectomy syndrome, not elsewhere classified (principal) ==